=== PATIENT | male | born 1945 | race Caucasian/White ===

== ENCOUNTER → 2017-01-18 | Outpatient (CLI) | payer OTHER ==
[~2017-01-18] MED LIST: ANT25 PO; ASPI-461 PO; DTR/5 PO; DUTA0.5C PO; HYT5 PO; SIMV-151 PO
--- NOTE | 2017-01-18 07:48 | DIAGNOSTIC IMAGING REPORT ---
CHEST CT WITHOUT CONTRAST CT DOSE: 87.59 mGy.cm HISTORY: Dyspnea LOW DOSE TECHNIQUE: Multiaxial CT images of the chest were performed without contrast. COMPARISON: None. FINDINGS: 5 mm hyperdense nodular density left base. Lungs otherwise appear clear. No focal infiltrate. Moderate ectasia thoracic aorta. No significant hilar or mediastinal adenopathy. IMPRESSION: 5 mm slightly hyperdense nodule left base. Follow-up per Fleischner criteria is suggested. Please refer to below summary of Fleischner criteria recommendations for follow-up of incidental CT nodules (Negro Plascencia, Guidelines for management of small pulmonary nodules detected on CT scans: A statement from the Fleischner Society, Radiology 237: [phone].) SOLID NODULES Solitary nodule size: <6 mm * low risk patients: no follow-up needed * high risk patients: optional CT at 12 months Solitary nodule size: 6-8 mm * low risk patients: follow-up at 6-12 months, then consider further follow-up at 18-24 months * high risk patients: initial follow-up CT at 6-12 months and then at 18-24 months if no change Solitary nodule size: >8 mm * either low or high risk patients - consider follow-up CT at 3 months, and/or CT-PET, and/or biopsy Multiple nodules size: <6 mm * low risk patients: no routine follow-up * high risk patients: optional CT at 12 months Multiple nodules size: 6-8 mm * low risk patients: follow-up at 3-6 months, then consider further follow-up at 18-24 months * high risk patients: follow-up at 3-6 months, then at 18-24 months if no change Multiple nodules size: >8 mm * low risk patients: follow-up at 3-6 months, then consider further follow-up at 18-24 months * high risk patients: follow-up at 3-6 months, then at 18-24 months if no change Note: newly detected indeterminate nodule in persons 35 years of age or older. * Low risk patients: minimal or absent history of smoking and/or other known risk factors * high risk patients: history of smoking or of other known risk factors (e.g. first degree relative with lung cancer, or exposure to asbestos, radon, uranium) * if a nodule up to 8 mm is partly solid or is ground glass further follow-up is required after 24 months to exclude possible slow growing adenocarcinoma (MAURICE) SUBSOIL NODULES Solitary pure ground-glass nodule * nodule size <6 mm - no CT follow-up required * nodule size >=6 mm - follow-up CT at 6-12 months, then every 2 years until 5 years Solitary part-solid nodule * nodule size <6 mm - no CT follow-up required * nodule size >=6 mm - follow-up CT at 3-6 months. If unchanged, and solid component remains <6 mm, then annual follow-up for 5 years Multiple subsolid nodules * nodule size <6 mm - follow-up CT at 3-6 months, consider further follow-up at 2 and 4 years if stable * nodule size >=6 mm - follow-up CT at 3-6 months, subsequent management based on the most suspicious nodule(s) . Electronically signed by: Albaro Jacobo M.D. 01/18/2017 7:46 AM Dictated Date/Time: 01/18/2017 7:42 AM
--- NOTE | 2017-01-18 13:18 | DIAGNOSTIC IMAGING REPORT ---
ADDENDUM CT LUNG SCREENING, LOW DOSE CLINICAL HISTORY: SCREENING FOR LUNG CANCER COMPARISON STUDY: No previous studies for comparison. CT DOSE: 87.59 mGy.cm TECHNIQUE: Low-dose helical CT was acquired without intravenous contrast from lung apices to bases and reconstructed at 2.5 mm every 2 mm. CAD was utilized for this study. FINDINGS: 5 mm hyperdense nodular density left base. Lungs otherwise appear clear. No focal infiltrate. Moderate ectasia thoracic aorta. No significant hilar or mediastinal adenopathy. Nodule 1 Category: 2 Nodule 1 Status: Baseline Nodule 1 Description: Solid Nodule 1 Lesion ID: 1 Nodule 1 Slice Number: [id number] Nodule 1 Volume (mm3): 85.4 Nodule 1 Major [place] mm: 7.6 Nodule 1 Minor [place] mm: 5.5 IMPRESSION: 5 mm slightly hyperdense nodule left base. CAD FINDINGS: Overall Lung RADS Category: 2 Lung RADS Management Recommendation: Lung RADS2: Continue annual screening in 12 months. Lung RADS Follow Up Date: January 18, 2018 Electronically signed by: Albaro Jacobo M.D. 01/18/2017 3:21 PM Dictated Date/Time: 01/18/2017 1:11 PM ORIGINAL REPORT CHEST CT WITHOUT CONTRAST CT DOSE: 87.59 mGy.cm HISTORY: Dyspnea LOW DOSE TECHNIQUE: Multiaxial CT images of the chest were performed without contrast. COMPARISON: None. FINDINGS: 5 mm hyperdense nodular density left base. Lungs otherwise appear clear. No focal infiltrate. Moderate ectasia thoracic aorta. No significant hilar or mediastinal adenopathy. IMPRESSION: 5 mm slightly hyperdense nodule left base. Follow-up per Fleischner criteria is suggested. Please refer to below summary of Fleischner criteria recommendations for follow-up of incidental CT nodules (Negro Plascencia, Guidelines for management of small pulmonary nodules detected on CT scans: A statement from the Fleischner Society, Radiology 237: [phone].) SOLID NODULES Solitary nodule size: <6 mm * low risk patients: no follow-up needed * high risk patients: optional CT at 12 months Solitary nodule size: 6-8 mm * low risk patients: follow-up at 6-12 months, then consider further follow-up at 18-24 months * high risk patients: initial follow-up CT at 6-12 months and then at 18-24 months if no change Solitary nodule size: >8 mm * either low or high risk patients - consider follow-up CT at 3 months, and/or CT-PET, and/or biopsy Multiple nodules size: <6 mm * low risk patients: no routine follow-up * high risk patients: optional CT at 12 months Multiple nodules size: 6-8 mm * low risk patients: follow-up at 3-6 months, then consider further follow-up at 18-24 months * high risk patients: follow-up at 3-6 months, then at 18-24 months if no change Multiple nodules size: >8 mm * low risk patients: follow-up at 3-6 months, then consider further follow-up at 18-24 months * high risk patients: follow-up at 3-6 months, then at 18-24 months if no change Note: newly detected indeterminate nodule in persons 35 years of age or older. * Low risk patients: minimal or absent history of smoking and/or other known risk factors * high risk patients: history of smoking or of other known risk factors (e.g. first degree relative with lung cancer, or exposure to asbestos, radon, uranium) * if a nodule up to 8 mm is partly solid or is ground glass further follow-up is required after 24 months to exclude possible slow growing adenocarcinoma (MAURICE) SUBSOIL NODULES Solitary pure ground-glass nodule * nodule size <6 mm - no CT follow-up required * nodule size >=6 mm - follow-up CT at 6-12 months, then every 2 years until 5 years Solitary part-solid nodule * nodule size <6 mm - no CT follow-up required * nodule size >=6 mm - follow-up CT at 3-6 months. If unchanged, and solid component remains <6 mm, then annual follow-up for 5 years Multiple subsolid nodules * nodule size <6 mm - follow-up CT at 3-6 months, consider further follow-up at 2 and 4 years if stable * nodule size >=6 mm - follow-up CT at 3-6 months, subsequent management based on the most suspicious nodule(s) . Electronically signed by: Albaro Jacobo M.D. 01/18/2017 7:46 AM Dictated Date/Time: 01/18/2017 7:42 AM
== END | disposition home or self-care (01) ==
LOC: C.CTS 07:22
PROVIDERS: ATTEND Physician Assistant
DX: Z12.2 Encounter for screening for malignant neoplasm of respiratory organs (principal); F17.210 Nicotine dependence, cigarettes, uncomplicated; R91.8 Other nonspecific abnormal finding of lung field

== ENCOUNTER → 2017-07-02 | Outpatient (CLI) | payer OTHER ==
[~2017-07-02] MED LIST changes: -DTR/5 PO; +OXYB5TAB74 PO
--- NOTE | 2017-07-02 08:44 | DIAGNOSTIC IMAGING REPORT ---
ULTRASOUND OF THE CAROTID ARTERIES CLINICAL HISTORY: LIGHTHEADEDNESS W/STANDING COMPARISON STUDY: None. TECHNIQUE: Real-time, grayscale, and color Doppler sonography of the carotid arteries was performed. Imaging reviewed in the transverse and longitudinal planes. NASCET criteria was utilized for stenosis calcification. FINDINGS: There is mild atherosclerotic plaque present . The peak systolic velocity within the right internal carotid artery is 53 cm/sec. The systolic velocity ratio of right internal to common carotid artery is 1.1. The peak systolic velocity within the left internal carotid artery is 34 cm/sec. The systolic velocity ratio left internal to common carotid artery is 1.1. Antegrade flow is seen in the vertebral arteries. The external carotid arteries are patent. Blood pressure in the right arm measured 161 mm/Hg. Blood pressure in the left arm measured 147 mm/Hg. IMPRESSION: No evidence of hemodynamically significant carotid stenosis. Electronically signed by: Juan Miguel Chance M.D. 07/02/2017 8:43 AM Dictated Date/Time: 07/02/2017 8:42 AM
--- NOTE | 2017-07-07 10:53 | CODING QUERY MEDICAL NECESSITY ---
SUPPORTING DIAGNOSIS NEEDED Mario GILBERT, A supporting diagnosis is required for the test/procedure performed on this patient in order for us to be reimbursed by the patient's insurance. Please provide a supporting diagnosis for the following test/procedure listed below next to the test name along with your signature. *If there is no additional diagnosis for this patient that would support the following test/procedure please document that below next to the test/procedure. Test(s)/Procedure(s) that require a supporting diagnosis: * ([id number]) (CAROTID DOP) DUPLEX NECK ARTER DIAGNOSIS: DATE OF SERVICE: 07/02/17 Provider Signature: Date: Thank you Benjamin Delgado [facility] Information Management Once completed, please kindly fax back to [phone] For questions please call [phone]
== END | disposition home or self-care (01) ==
LOC: C.ULTRBC 07:56
PROVIDERS: ATTEND Physician Assistant
DX: R42 Dizziness and giddiness (principal)

== ENCOUNTER 2017-10-03 08:57 | Emergency (ER) | payer OTHER ==
[~2017-10-03] VITALS: Ht 165.1 cm; Wt 76.0 kg
[~2017-10-03 08:57] MED LIST changes: +DTR/5 PO; -HYT5 PO; -OXYB5TAB74 PO; +TERA5CAP PO
[2017-10-03 09:02] VITALS: Ht 165.1 cm; Wt 76.0 kg
[2017-10-03] MEDS ORDERED: DEXAMETHASONE SOD INJ 4 MG/ML VIAL IV STA (09:21)
--- NOTE | 2017-10-03 09:22 | EMERGENCY ROOM VISIT NOTE ---
History Report prepared by Mary Carmen: Nick Nunez Under the Supervision of: Dr. Harpreet Jiménez D.O. First contact with patient: 09:11 Chief Complaint: SKIN PROBLEM Stated Complaint: ITCHY, HIVES History of Present Illness The patient is a 71 year old male who presents to the Emergency Room with complaints of a persistent allergic reaction that started 3 days ago. He states that he has bumps all over his body, including his back and up his hair line. He notes that the bumps are extremely itchy. The patient says that he has no idea what has caused the bumps, as he has been doing the same activities as always, and denies any new chemical, soap, or detergent use. He also denies any new foods. The patient says that he has taken Benadryl without any relief of his skin problem. The patient denies any abdominal pain, fatigue, easy bleeding , recent cold symptoms, leg swelling, or diarrhea. He states that he takes a daily blood pressure medication. Source of History: patient Onset: 3 days ago Position: other (global - allergic reaction) Quality: other (bumps all over skin - itchy) Timing: other (persistent) Associated Symptoms: No abdominal pain, No diarrhea, No fatigue Note: Denies any easy bleeding, recent cold symptoms, leg swelling. Review of Systems See HPI for pertinent positives & negatives. A total of 10 systems reviewed and were otherwise negative. Past Medical & Surgical Medical Problems: (1) HTN (hypertension) Family History Family history omitted secondary to patient's advanced age. Social History Smoking Status: Current Every Day Smoker Alcohol Use: occasionally Marital Status: Occupation Status: employed Current/Historical Medications Scheduled Aspirin (Aspirin), 1 TAB PO QAM Dutasteride (Avodart), 0.5 MG PO QAM Meclizine HCl (Meclizine HCl), 1 TAB PO BID Oxybutynin Chloride (Ditropan), 10 MG PO BID Prednisone (Prednisone Tab), 40 MG PO DAILY Simvastatin (Simvastatin), 1 TAB PO HS Terazosin HCl (Terazosin HCl), 1 CAP PO HS Allergies Coded Allergies: No Known Allergies (Unverified , 09/25/15) Physical Exam Vital Signs Date Time Temp Pulse Resp B/P (MAP) Pulse Ox O2 Delivery O2 Flow Rate FiO2 10/03/17 09:02 36.6 100 20 116/69 96 Room Air Physical Exam GENERAL: Patient is awake, alert, and in no acute distress. Patient is resting comfortably and showing no signs of anxiety EYES: The conjunctivae are clear. The pupils are round and reactive. EARS, NOSE, MOUTH AND THROAT: The nose is without any evidence of any deformity. Mucous membranes are moist tongue is midline NECK: The neck is nontender and supple. RESPIRATORY: Normal respiratory effort is noted there is no evidence of wheezing rhonchi or rales CARDIOVASCULAR: Regular rate and rhythm noted there no murmurs rubs or gallops normal S1 normal S2 GASTROINTESTINAL: The abdomen is soft. Bowel sounds are present in all quadrants. Abdomen is nontender MUSCULOSKELETAL/EXTREMITIES: There is no evidence of gross deformity full range of motion is noted in the hips and shoulders SKIN: Diffuse urticarial rash noted over body as well as extremities, blanches easily. There is no edema in the lower extremities and no petechiae in the lower extremities. NEUROLOGIC: Patient is awake alert and oriented x3. Medical Decision & Procedures Laboratory Results 10/03/17 09:25 Red Blood Count 4.19, Mean Corpuscular Volume 96.9, Mean Corpuscular Hemoglobin 33.4, Mean Corpuscular Hemoglobin Concent 34.5, Mean Platelet Volume 11.4, Neutrophils (%) (Auto) 82.7, Lymphocytes (%) (Auto) 13.9, Monocytes (%) (Auto) 2.3, Eosinophils (%) (Auto) 0.9, Basophils (%) (Auto) 0.0, Neutrophils # (Auto) 8.75, Lymphocytes # (Auto) 1.47, Monocytes # (Auto) 0.24, Eosinophils # (Auto) 0.10, Basophils # (Auto) 0.00 10/03/17 09:25 Test 10/03/17 09:25 White Blood Count 10.58 K/uL (4.8-10.8) Red Blood Count 4.19 M/uL (4.7-6.1) Hemoglobin 14.0 g/dL (14.0-18.0) Hematocrit 40.6 % (42-52) Mean Corpuscular Volume 96.9 fL (80-100) Mean Corpuscular Hemoglobin 33.4 pg (25-34) Mean Corpuscular Hemoglobin Concent 34.5 g/dl (32-36) Platelet Count 157 K/uL (130-400) Mean Platelet Volume 11.4 fL (7.4-10.4) Neutrophils (%) (Auto) 82.7 % Lymphocytes (%) (Auto) 13.9 % Monocytes (%) (Auto) 2.3 % Eosinophils (%) (Auto) 0.9 % Basophils (%) (Auto) 0.0 % Neutrophils # (Auto) 8.75 K/uL (1.4-6.5) Lymphocytes # (Auto) 1.47 K/uL (1.2-3.4) Monocytes # (Auto) 0.24 K/uL (0.11-0.59) Eosinophils # (Auto) 0.10 K/uL (0-0.5) Basophils # (Auto) 0.00 K/uL (0-0.2) RDW Standard Deviation 51.1 fL (36.4-46.3) RDW Coefficient of Variation 14.3 % (11.5-14.5) Immature Granulocyte % (Auto) 0.2 % Immature Granulocyte # (Auto) 0.02 K/uL (0.00-0.02) Anion Gap 7.0 mmol/L (3-11) Est Creatinine Clear Calc Drug Dose 59.4 ml/min Estimated GFR () 80.0 Estimated GFR (Non- 69.0 BUN/Creatinine Ratio 12.6 (10-20) Calcium Level 8.9 mg/dl (8.5-10.1) Total Bilirubin 1.5 mg/dl (0.2-1) Direct Bilirubin 0.3 mg/dl (0-0.2) Aspartate Amino Transf (AST/SGOT) 20 U/L (15-37) Alanine Aminotransferase (ALT/SGPT) 20 U/L (12-78) Alkaline Phosphatase 47 U/L (45-117) Total Protein 7.2 gm/dl (6.4-8.2) Albumin 3.8 gm/dl (3.4-5.0) Laboratory results per my review. Medications Administered Medications (Trade) Dose Ordered Sig/Catherine Route Start Time Stop Time Status Last Admin Dose Admin Dexamethasone Sodium Phosphate (Decadron Inj) 10 mg NOW STAT IV 10/03/17 09:21 10/03/17 09:22 DC 10/03/17 09:35 10 MG ED Course 0915: The patient was evaluated in room B7. A complete history and physical examination were performed. 09: Ordered Decadron Inj 10 mg IV. 1013: Upon reevaluation, the patient is resting comfortably. I discussed the results and treatment plan with him. He verbalized agreement of the treatment plan. He was discharged home. Medical Decision Differential diagnosis: Etiologies such as contact dermatitis, viral exanthem, urticaria, allergic reaction, Hussein-Francis syndrome, toxic epidermal necrolysis, erythema multiforme, cellulitis, scabies, HSV, varicella, zoster, eczema, staph scalded skin syndrome, fungal infection, as well as others were entertained. Nursing notes reviewed. The patient is a 71-year-old male who presented to the emergency department with progressive urticarial rash. The rash was blanching. He had no definite exposures that he knew of. He had no airway involvement and he did not have any chest pain. The patient was treated with Decadron in the emergency apartment. He took Benadryl prior to arrival. The patient's symptoms improved somewhat. At this time I'm unsure what the patient is having the urticaria from but I encouraged him to continue all medications as prescribed. He was also encouraged to start taking an H2 curtis while he was on the prednisone. I also recommended that he follow-up with his primary care physician this week for reevaluation but return to the emergency department immediately if symptoms change worsen or the need arises. Medication Reconcilliation Current Medication List: was personally reviewed by me Blood Pressure Screening Patient's blood pressure: Normal blood pressure Impression Primary Impression: [place] Scribe Attestation The scribe's documentation has been prepared under my direction and personally reviewed by me in its entirety. I confirm that the note above accurately reflects all work, treatment, procedures, and medical decision making performed by me. Departure Information Dispostion Home / Self-Care Prescriptions Prednisone (Prednisone Tab) 20 Mg Tab 40 MG PO DAILY, #10 TAB Start on 10/04 Prov: Harpreet Jiménez, DO 10/03/17 Referrals No Doctor, Assigned (PCP) Forms HOME CARE DOCUMENTATION FORM, IMPORTANT VISIT INFORMATION, WORK / SCHOOL INSTRUCTIONS Patient Instructions My [facility], [place] Additional Instructions Continue using Benadryl as directed for symptomatically relief. Consider starting an [id number] medicine for stomach acid such as Zantac or Pepcid especially while your taking the prednisone. Start taking the prednisone tomorrow. Call your family to schedule a follow-up appointment. Return to the emergency department if symptoms change worsen or the need arises.
[2017-10-03 09:41] LABS: EOS % 0.9 %; HEMATOCRIT 40.6 % (42-52); IG# 0.02 K/uL (0.00-0.02); LYMPH % 13.9 %; LYMPH ABS # 1.47 K/uL (1.2-3.4); MEAN CELL VOLUME 96.9 fL (80-100); MEAN CORPUSCULAR HEMOGLOBIN 33.4 pg (25-34); MEAN CORPUSCULAR HGB CONC 34.5 g/dl (32-36); MEAN PLATELET VOLUME 11.4 fL (7.4-10.4); MONO % 2.3 %; MONO ABS # 0.24 K/uL (0.11-0.59); NEUT % 82.7 %; NEUT ABS # 8.75 K/uL (1.4-6.5); PLATELET COUNT 157 K/uL (130-400); RED CELL DISTRIBUTION WIDTH CV 14.3 % (11.5-14.5); RED CELL DISTRIBUTION WIDTH SD 51.1 fL (36.4-46.3); WHITE BLOOD COUNT 10.58 K/uL (4.8-10.8)
[2017-10-03 09:59] LABS: ALBUMIN 3.8 gm/dl (3.4-5.0); CALCIUM 8.9 mg/dl (8.5-10.1); CREATININE 1.07 mg/dl (0.60-1.40); POTASSIUM 3.7 mmol/L (3.5-5.1)
[2017-10-03 10:01] LABS: TOTAL PROTEIN 7.2 gm/dl (6.4-8.2)
[2017-10-03] MEDS ORDERED: PRED20TA2 PO (10:11)
[2017-10-03 10:54] VITALS: BP 126/78; PULSE 73; TEMP 36.6; O2SAT 97
== END 2017-10-03 10:54 | disposition home or self-care (01) ==
LOC: C.EDB 08:58
DX: L50.9 Urticaria, unspecified (principal); I10 Essential (primary) hypertension; F17.200 Nicotine dependence, unspecified, uncomplicated; Z79.82 Long term (current) use of aspirin

== ENCOUNTER → 2018-01-19 | Outpatient (CLI) | payer OTHER ==
[~2018-01-19] MED LIST changes: +HYT5 PO; +PRED20TA2 PO; -TERA5CAP PO
--- NOTE | 2018-01-19 07:32 | DIAGNOSTIC IMAGING REPORT ---
ADDENDUM After the report was finalized, I was informed that a low-dose lung screening CT was attempted to be ordered, however a standard chest CT without contrast was subsequently ordered and completed. Following low dose screening lung RADS criteria, these findings would be most compatible with category 2 which suggests continued annual screening with low-dose lung CT. Electronically signed by: Josh Deal M.D. 01/19/2018 3:04 PM Dictated Date/Time: 01/19/2018 3:02 PM ORIGINAL REPORT (CHEST) THORAX WITHOUT CT DOSE: 324.02 mGy.cm CLINICAL HISTORY: 72 years-old Male with F/U LUNG NODULE. Follow-up study in a patient with lung nodule TECHNIQUE: Multiaxial CT images of the chest were performed without contrast. A dose lowering technique was utilized adhering to the principles of ALARA. COMPARISON: Low-dose lung screening study January 18, 2017. FINDINGS: No dominant thyroid nodule. Evaluation for adenopathy is limited without the use of IV contrast. No pathologic adenopathy is identified. Coronary arterial disease. Mild to moderate atherosclerosis of the thoracic aorta without aneurysm identified. Unopacified pulmonary arterial tree is within normal limits. There is no pneumothorax, pleural effusion or focal airspace consolidation. 5 mm solid nodule of the basal left lower lobe seen on image 228 series 301 is unchanged from comparison study 01/18/2017. No additional pulmonary nodules or masses identified. Central airways are patent. Small Bochdalek hernia on the left. Calcifications of the inferior pole left kidney suggests nonobstructing renal calculi measuring up to 3 mm. Punctate nonobstructing calculus of the superior pole right kidney. High attenuating material is noted within the distal esophagus and proximal gastric lumen. Soft tissues are unremarkable. Multilevel facet arthrosis and endplate spurring about the spine. IMPRESSION: 1. No acute intrathoracic abnormality identified. 2. No lobar airspace consolidation or pathologic adenopathy. 3. Unchanged solid 5 mm nodule of the basal left lower lobe. 4. Nonobstructing bilateral nephrolithiasis. 5. Small left-sided Bochdalek hernia. Please refer to below summary of Fleischner criteria recommendations for follow-up of incidental CT nodules (H Thais, Guidelines for management of small pulmonary nodules detected on CT scans: A statement from the Fleischner Society, Radiology 237: [phone].) SOLID NODULES Solitary nodule size: <6 mm * Low risk patients: no follow-up needed * high risk patients: optional CT at 12 months Note: newly detected indeterminate nodule in persons 35 years of age or older. * Low risk patients: minimal or absent history of smoking and/or other known risk factors * high risk patients: history of smoking or of other known risk factors (e.g. first degree relative with lung cancer, or exposure to asbestos, radon, uranium) * if a nodule up to 8 mm is partly solid or is ground glass further follow-up is required after 24 months to exclude possible slow growing adenocarcinoma (MAURICE) The above report was generated using voice recognition software. It may contain grammatical, syntax or spelling errors. Electronically signed by: Josh Deal M.D. 01/19/2018 7:31 AM Dictated Date/Time: 01/19/2018 7:20 AM
== END | disposition home or self-care (01) ==
LOC: C.CTS 06:59
PROVIDERS: ATTEND Physician Assistant
DX: R91.8 Other nonspecific abnormal finding of lung field (principal); N20.0 Calculus of kidney

== ENCOUNTER → 2018-02-10 | Outpatient (CLI) | payer OTHER ==
--- NOTE | 2018-02-10 13:10 | EXERCISE STRESS ECHO ---
*NOTICE TO RECEIVING REPUBLICAN AGENCY This information is strictly Confidential and protected under [place] law. [place] law prohibits you from making any further disclosure of this information unless further disclosure is expressly permitted by the written consent of the person to whom it pertains or is authorized by law. A general authorization for the release of medical or other information is not sufficient for this purpose. Hospital accepts no responsibility if the information is made available to any other person, INCLUDING THE PATIENT. Interpretation Summary * Name: MARIANELA MITCHELL JR Study Date: 02/10/2018 08:25 AM BP: 148/86 mmHg * Patient Location: [facility] HR: 62 * : 1945 (M/d/yyyy) Gender: Male Height: 65 in * Age: 72 yrs Ethnicity: CA Weight: 165 lb * Ordering Physician: Renee Martin * Referring Physician: Renee Martin PA-C * Performed By: Emelina Singletary RCS * * Reason For Study: AKBAR / CORONARY ATHROSCLEROSIS * BSA: 1.8 m2 * -- Conclusions -- * Left ventricular systolic function is normal. * Diastolic dysfunction, Grade II (pseudonormalization pattern). * Aortic valve sclerosis mild, without significant aortic valvular stenosis. * Right ventricular systolic pressure is normal. * Normal exercise echocardiogram without evidence of inducible ischemia Procedure Details * ECHOEX, CPT #[id number] * ECHO COLOR FLOW, CPT #[id number] * ECHO DOPPLER, CPT #[id number] Left Ventricular Findings with Stress * Normal exercise echocardiogram without evidence of inducible ischemia Left Ventricle * The left ventricle is normal in size. * There is normal left ventricular wall thickness. * Left ventricular systolic function is normal. * Ejection Fraction = 55-60%. * Diastolic dysfunction, Grade II (pseudonormalization pattern). * The left ventricular wall motion is normal at rest. Right Ventricle * The right ventricle is normal size. Atria * The left atrial size is normal. * Right atrial size is normal. Mitral Valve * The mitral valve is grossly normal. * There is no mitral regurgitation noted. Tricuspid Valve * The tricuspid valve is not well visualized, but is grossly normal. * There is trace tricuspid regurgitation. * Right ventricular systolic pressure is normal. Aortic Valve * Aortic valve sclerosis mild, without significant aortic valvular stenosis. * No hemodynamically significant valvular aortic stenosis. * There is no significant aortic regurgitation. Pulmonic Valve * The pulmonic valve is not well visualized. Great Vessels * The aortic root is normal size. Pericardium * There is no pericardial effusion. Stress Parameters * Normal baseline electrocardiogram. * The stress portion of this study was personally supervised by the undersigned interpreting physician. * Rest heart rate was '62' BPM. * Rest blood pressure was '148/86' * Maximum heart rate achieved was 129 bpm. * Maximum heart rate was 87 % of maximum age-predicted heart rate. * Maximum blood pressure was '179/78' * Total exercise time was '08:00' * Maximum exercise MET level achieved was '10.10' METS * Maximum treadmill speed was '3.40' miles per hour. * Maximum treadmill elevation was '14.00'% grade. Left Ventricular Findings with Stress * The baseline EKG was normal There were no significant ST or T-wave changes during exercise or recovery Baseline echocardiogram was normal There was normal augmentation of all segments without inducible wall motion abnormalities at peak exertion Normal heart rate and blood pressure response to exercise No symptoms reported Short treadmill score: 8 (low risk) Normal heart rate recovery MMode 2D Measurements and Calculations IVSd 1.2 cm IVSs 1.6 cm LVIDd 3.8 cm LVIDs 2.6 cm LVPWd 0.78 cm LVPWs 0.94 cm IVS/LVPW 1.5 FS 32.4 % EDV(Teich) 63.5 ml ESV(Teich) 24.5 ml EF(Teich) 61.4 % EDV(cubed) 56.6 ml ESV(cubed) 17.5 ml EF(cubed) 69.1 % % IVS thick 36.1 % % LVPW thick 20.1 % LV mass(C)d 118.5 grams LV mass(C)dI 65.0 grams/m\S\2 LV mass(C)s 101.8 grams LV mass(C)sI 55.9 grams/m\S\2 SV(Teich) 39.0 ml SI(Teich) 21.4 ml/m\S\2 SV(cubed) 39.1 ml SI(cubed) 21.4 ml/m\S\2 Ao root diam 2.7 cm Ao root area 5.7 cm\S\2 LA dimension 3.1 cm LA/Ao 1.1 LVOT diam 2.0 cm LVOT area 3.3 cm\S\2 LVAd ap4 27.7 cm\S\2 LVLd ap4 7.7 cm EDV(MOD-sp4) 81.4 ml EDV(sp4-el) 84.7 ml LVAs ap4 19.8 cm\S\2 LVLs ap4 7.0 cm ESV(MOD-sp4) 44.8 ml ESV(sp4-el) 47.1 ml EF(MOD-sp4) 45.0 % EF(sp4-el) 44.4 % LVAd ap2 36.7 cm\S\2 LVLd ap2 9.2 cm EDV(MOD-sp2) 120.4 ml EDV(sp2-el) 124.2 ml LVAs ap2 23.8 cm\S\2 LVLs ap2 7.4 cm ESV(MOD-sp2) 62.6 ml ESV(sp2-el) 64.8 ml EF(MOD-sp2) 48.0 % EF(sp2-el) 47.9 % LVLd %diff 16.8 % EDV(MOD-bp) 108.1 ml LVLs %diff 4.9 % ESV(MOD-bp) 54.1 ml EF(MOD-bp) 50.0 % SV(MOD-sp4) 36.6 ml SI(MOD-sp4) 20.1 ml/m\S\2 SV(MOD-sp2) 57.8 ml SI(MOD-sp2) 31.7 ml/m\S\2 SV(MOD-bp) 54.0 ml SI(MOD-bp) 29.6 ml/m\S\2 SV(sp4-el) 37.6 ml SI(sp4-el) 20.6 ml/m\S\2 SV(sp2-el) 59.4 ml SI(sp2-el) 32.6 ml/m\S\2 Doppler Measurements and Calculations MV E max clyde 73.3 cm/sec MV A max clyde 65.8 cm/sec MV E/A 1.1 MV P1/2t max clyde 87.1 cm/sec MV P1/2t 76.9 msec MVA(P1/2t) 2.9 cm\S\2 MV dec slope 332.1 cm/sec\S\2 MV dec time 0.26 sec Ao V2 max 120.8 cm/sec Ao max PG 5.8 mmHg Ao max PG (full) 1.3 mmHg JORGE(V,A) 2.9 cm\S\2 JORGE(V,D) 2.9 cm\S\2 LV V1 max PG 4.5 mmHg LV V1 max 106.2 cm/sec PA V2 max 103.5 cm/sec PA max PG 4.3 mmHg TR max clyde 233.8 cm/sec
== END | disposition home or self-care (01) ==
LOC: C.CPL 08:14
PROVIDERS: ATTEND Physician Assistant
DX: R06.09 Other forms of dyspnea (principal); I25.84 Coronary atherosclerosis due to calcified coronary lesion

== ENCOUNTER 2022-05-14 21:06 | Inpatient (IN) ==
[2022-05-14 21:39] LABS: Basophils # (auto) 0.06 K/uL (0-0.2); Basophils % (auto) 0.7 %; Eosinophils # (auto) 0.14 K/uL (0-0.50); Eosinophils % (auto) 1.6 %; Hematocrit (blood only) 36.1 % (40.1-51.0); Hemoglobin 12.4 g/dl (14.0-18.0); Immature Granulocytes # (auto) 0.01 K/uL (0.00-0.02); Immature Granulocytes % (auto) 0.1 %; Lymphocytes # (auto) 1.53 K/uL (1.2-3.4); Lymphocytes % (auto) 17.1 %; Mean Corpuscular Hemoglobin 31.2 pg (25.0-34.0); Mean Corpuscular Hgb Conc 34.3 g/dL (32.0-36.0); Mean Corpuscular Volume 90.9 fL (80.0-100.0); Mean Platelet Volume 10.8 fL (9.4-12.4); Monocytes # (auto) 0.75 K/uL (0.24-0.82); Monocytes % (auto) 8.4 %; Neutrophils # (auto) 6.44 K/uL (1.4-6.5); Neutrophils % (auto) 72.1 %; Platelet Count 198 K/uL (130-400); RDW Coefficient of Variation 14.8 % (11.5-14.5); RDW Standard Deviation 49.6 fL (36.4-46.3); Red Blood Count 3.97 M/uL (4.63-6.08); White Blood Count 8.93 K/ul (4.8-10.8)
[2022-05-14 21:46] LABS: Appearance Urine Clear (Clear); Bacteria Urine Automated Negative (Negative); Bilirubin Urine Negative (Negative); Blood Urine 2+ (Negative); Color Urine Yellow; Glucose Urine UA Negative (Negative); Ketones Urine Negative (Negative); Leukocyte Esterase Urine Negative (Negative); Nitrite Urine Negative (Negative); Protein Urine Trace (Negative); Specific Gravity Urine 1.016 (1.000-1.030); Urobilinogen Urine Negative (Negative)
[2022-05-14 22:00] LABS: Alanine Aminotransferase 19 U/L (7-52); Albumin Globulin Ratio 1.7 (0.9-2); Albumin Level 4.4 gm/dl (3.4-5.0); Alkaline Phosphatase 53 U/L (34-104); Anion Gap 10 (3-11); Aspartate Aminotransferase 29 U/L (13-39); BUN Creatinine Ratio 14.7 (10-20); Bilirubin,Total 0.8 mg/dl (0.2-1.0); Blood Urea Nitrogen 19 mg/dl (6-23); Calcium 9.9 mg/dl (8.5-10.1); Carbon Dioxide 23 mmol/L (21-32); Chloride 105 mmol/L (98-107); Est GFR (African American) 61.6 ml/min; Est GFR (Non-African American) 53.1 ml/min; Globulin 2.6 gm/dl (2.5-4.0); Glucose 100 mg/dl (70-99(Fasting)); Lipase 20 U/L (11-82); Potassium 3.6 mmol/L (3.5-5.1); Sodium 138 mmol/L (136-145)
[2022-05-14] MEDS ORDERED: ONDANSETRON INJ 2 MG/ML 2 ML VIAL IV STA (22:20)
[2022-05-14] MEDS ORDERED: MoRPHine SULFATE 4 MG/ML 1 ML CARP\\VIAL IV STA (22:20)
--- NOTE | 2022-05-14 22:24 | Emergency Department Note ---
History of Present Illness General Chief complaint: Abdominal Pain Stated complaint: SEVERE ABDOMINAL PAIN, FEET GOING NUMB Time Seen by Provider: 05/14/22 22:15 History of Present Illness Maximum Pain Intensity: 10 This 76-year-old presents to the ER complaining of left flank left lower abdominal pain that started today with no history of kidney stones Location: Left lower abdomen and flank Quality: Painful Severity: Moderate Duration: Today Timing: Today Context: Patient was concerned and came in Modifying factors: better with rest; worse with activity Patient denies chest pain, dyspnea, vomiting, diarrhea, urinary symptoms, penile pain, testicular pain. No prior abdominal surgeries. No prior kidney stones. Home Medications Medication Instructions Recorded Confirmed Type dutasteride 0.5 mg capsule 0.5 mg PO QAM 07/20/19 05/14/22 History lisinopril 30 mg tablet 30 mg PO QAM 07/20/19 05/14/22 History meclizine 25 mg tablet 25 mg PO DIRECTED PRN Dizziness 07/20/19 05/14/22 History naproxen sodium 220 mg tablet 220 mg PO BID 07/20/19 05/14/22 History (Aleve) omeprazole 40 mg capsule,delayed 40 mg PO QAM 07/20/19 05/14/22 History release oxybutynin chloride 5 mg tablet 5 mg PO BID 07/20/19 05/14/22 History simvastatin 40 mg tablet 40 mg PO HS 07/20/19 05/14/22 History terazosin 5 mg capsule 5 mg PO HS 07/20/19 05/14/22 History aspirin 81 mg tablet,delayed 81 mg PO DAILY 05/14/22 05/14/22 History release metoprolol succinate 25 mg 25 mg PO QAM 05/14/22 05/14/22 History tablet,extended release 24 hr Allergies Allergy/AdvReac Type Severity Reaction Status Date / Time No Known Allergies Allergy Verified 05/14/22 22:51 Past Med/Surg History Medical History BPH (benign prostatic hyperplasia) Cardiac murmur doesnt follow with anyone DX As CHILD Chronic back pain neck- cant turn side to side very well. up and down is ok Diverticular disease has had in past GERD (gastroesophageal reflux disease) Hearing deficit Hyperlipidemia Hypertension Surgical History History of colonoscopy History of deviated nasal septum with repair History of ingrown nail LEFT FOOT WITH REPAIR Hx of hernia repair Social History Smoking Status: Current every day smoker Cigarettes Per Day: 15; Second Hand Exposure: No; Hx Alcohol Use: Yes Alcohol type: beer, wine and hard liquor Hx Substance Use: No Preferred Language: Latvian Communication Ability: Effective Service Coordinator Elderly Facility Required: No Beliefs That Will Affect Care: None Current Living Situation: Spouse Feels Safe at Home: Yes Assistive Devices: Hearing Aid - Bilateral Review of Systems A total of 10 systems reviewed and were otherwise negative Physical Exam Vital Signs Vital Signs - 24 hr 05/14/22 21:09 05/14/22 22:49 Temperature 36.8 C Temperature Source Temporal Artery Scan Pulse Rate 66 Pulse Rate [Finger] 63 Respiratory Rate 18 18 Respiratory Effort / Characteristics Non-Labored Spontaneous Respiratory Depth Normal Respiratory Pattern Regular Blood Pressure 163/83 H Blood Pressure [Right Arm] 118/79 Blood Pressure Mean 109 Blood Pressure Mean [Right Arm] 92 Blood Pressure Position Sitting Pulse Oximetry 100 98 Oxygen Delivery Method Room Air Room Air Sepsis Recent Fever Within 48 Hours No Sepsis New/Unexplained Change in Mental Status No Sepsis Action Taken by Nursing No Action Required VITALS: Vitals are noted on the nurse's note and reviewed by myself. Vital signs stable. GENERAL: Pleasant gentleman hard of hearing, in no acute distress, nondiaphoretic, well-developed well-nourished. SKIN: The skin was without rashes, erythema, edema, or bruising. There is no tenting of the skin. Capillary reflex less than 2 seconds. HEAD: Normocephalic atraumatic. EARS: External auditory canals clear, EYES: Pupils equal round and reactive to light and accommodation. Conjunctivae without injection, sclerae without icterus. Extraocular movements intact. NOSE: Patent, turbinates without inflammation or discharge. MOUTH: Mucous membranes moist. Pharynx without erythema or exudate. Uvula midline. Airway patent. Tongue does not deviate. NECK: Supple without nuchal rigidity. No lymphadenopathy. No thyromegaly. Cervical spine is nontender. No JVD. HEART: Regular rate and rhythm LUNGS: Clear to auscultation bilaterally without wheezes, rales or rhonchi. No retractions or accessory muscle use. ABDOMEN: Positive bowel sounds x 4. Normal tympanic percussion. Soft, tender left lower quadrant, without masses or organomegaly. Aguirre sign negative. No guarding or rebound tenderness. No CVA tenderness MUSCULOSKELETAL: No muscle atrophy, erythema, or edema noted. NEURO: Patient was alert and oriented to person place and time. Normal sensation to light and sharp touch. No focal neurological deficits. Course Administered Medications Discontinued Medications Ioversol (Optiray 300 100ml) 83 ml IV ONCE ONE Stop: 05/14/22 23:40 Last Admin: 05/14/22 23:41 Dose: 83 ml Documented By: RONEL Morphine Sulfate (Morphine Sulfate 4 Mg/Ml 1 Ml Carp\Vial) 4 mg IV NOW STA Stop: 05/14/22 22:21 Last Admin: 05/14/22 22:48 Dose: 4 mg Documented By: MEG Ondansetron HCl (Ondansetron Inj 2 Mg/Ml 2 Ml Vial) 4 mg IV NOW STA Stop: 05/14/22 22:21 Last Admin: 05/14/22 22:48 Dose: 4 mg Documented By: MEG Medical Decision Making Medical Records Attestation: I reviewed the patient's medical records. Home Medications Current Medication List: was personally reviewed by me Laboratory Data Attestation: I reviewed the patient's lab results. Result diagrams: 05/14/22 21:20 05/14/22 21:20 Lab Results 05/14/22 05/14/22 05/14/22 Range/Units 21:20 21:20 21:20 WBC 8.93 (4.8-10.8) K/ul RBC 3.97 L (4.63-6.08) M/uL Hgb 12.4 L (14.0-18.0) g/dl Hct 36.1 L (40.1-51.0) % MCV 90.9 (80.0-100.0) fL MCH 31.2 (25.0-34.0) pg MCHC 34.3 (32.0-36.0) g/dL RDW Std Deviation 49.6 H (36.4-46.3) fL RDW Coeff of Vic 14.8 H (11.5-14.5) % Plt Count 198 (130-400) K/uL MPV 10.8 (9.4-12.4) fL Immature Gran % (Auto) 0.1 % Neut % (Auto) 72.1 % Lymph % (Auto) 17.1 % [place] % (Auto) 8.4 % Eos % (Auto) 1.6 % Baso % (Auto) 0.7 % Neut # (Auto) 6.44 (1.4-6.5) K/uL Lymph # (Auto) 1.53 (1.2-3.4) K/uL [place] # (Auto) 0.75 (0.24-0.82) K/uL Eos # (Auto) 0.14 (0-0.50) K/uL Baso # (Auto) 0.06 (0-0.2) K/uL Immature Gran # (Auto) 0.01 (0.00-0.02) K/uL Sodium 138 (136-145) mmol/L Potassium 3.6 (3.5-5.1) mmol/L Chloride 105 (98-107) mmol/L Carbon Dioxide 23 (21-32) mmol/L Anion Gap 10 (3-11) BUN 19 (6-23) mg/dl Creatinine 1.29 (0.6-1.4) mg/dl Est Cr Clr Drug Dosing Not Reportable Est GFR ( Amer) 61.6 ml/min Est GFR (Non-Af Amer) 53.1 ml/min BUN/Creatinine Ratio 14.7 (10-20) Glucose 100 H (70-99(Fasting)) mg/dl Calcium 9.9 (8.5-10.1) mg/dl Total Bilirubin 0.8 (0.2-1.0) mg/dl AST 29 (13-39) U/L ALT 19 (7-52) U/L Alkaline Phosphatase 53 (34-104) U/L Total Protein 7.0 (6.0-8.3) gm/dl Albumin 4.4 (3.4-5.0) gm/dl Globulin 2.6 (2.5-4.0) gm/dl Albumin/Globulin Ratio 1.7 (0.9-2) Lipase 20 (11-82) U/L Urine Color Yellow Urine Appearance Clear (Clear) Urine pH 5.0 (4.5-7.5) Ur Specific [place] 1.016 (1.000-1.030) Urine Protein Trace H (Negative) Urine Glucose (UA) Negative (Negative) Urine Ketones Negative (Negative) Urine Blood 2+ H (Negative) Urine Nitrite Negative (Negative) Urine Bilirubin Negative (Negative) Urine Urobilinogen Negative (Negative) Ur Leukocyte Esterase Negative (Negative) Urine WBC (Auto) 5-10 H (0-5) /hpf Urine RBC (Auto) 10-30 H (0-4) /hpf U Hyaline Cast (Auto) 1-5 (0-5) /lpf U Epithel Cells (Auto) 5-10 H (0-5) /lpf Urine Bacteria (Auto) Negative (Negative) Imaging Data Attestation: I personally reviewed and interpreted this imaging study as follows: MDM Narrative Prior records/ancillary studies reviewed. Triage Nursing notes reviewed. Additional history obtained from nursing. The patient's history was concerning for abdominal pain. Differential diagnosis: Etiologies such as appendicitis, diverticulitis, PUD, biliary pathology, UTI, pancreatitis, obstruction, mesenteric ischemia, aortic pathology, infections, inflammatory bowel disease, renal colic, as well as others were entertained. Physical examination findings: As above. ER treatment provided: An order was placed for continuous cardiac monitoring. The monitor shows a rate of 60-100 with a sinus rhythm. Morphine and Zofran, Tylenol On reassessment the patient felt better. Diagnostics interpreted by me: The labs revealed no worrisome leukocytosis, negative urine for infx Imaging studies: Preliminary Findings Only See Final Report For Complete Findings CT ABDOMEN & PELVIS With Contrast: 8 7 x 4 x 5 mm left ureterovesical junction calculus results in minimal hydronephrosis. The remaining solid organs are within normal limits. No bowel obstruction. Normal appendix. Diverticulosis. No fracture. Radiologist: Erika Ramirez MD Consultation: A consultation was placed with the hospitalist. The case was discussed and diagnostics were reviewed. The patient was evaluated in the ER for further treatment. Exam and history seem consistent with renal colic. Patient still moderate amount of pain. Medicine is consulted. He will be evaluated for admission. By the evaluation outlined above emergent etiologies such as appendicitis, diverticulitis, PUD, biliary pathology, UTI, pancreatitis, obstruction, mesenteric ischemia, aortic pathology, infections, inflammatory bowel disease, as well as others were deemed relatively unlikely. The pt informed about the findings as listed above. All questions were answered and pleased with the treatment. The chart was completed utilizing [employer] Speech voice recognition software. Grammatical errors, random word insertions, pronoun errors, and incomplete sentences are an occassional consequence of this system due to software limitations, ambient noise, and hardware issues. Any formal questions or concerns about the content, text, or information contained within the body of this dictation should be directly addressed to the physician material assistant for clarification. Impression & Plan Renal colic on left side, Ureterolithiasis Discharge Plan Visit Data Chief Complaint: Abdominal Pain Stated Complaint: SEVERE ABDOMINAL PAIN, FEET GOING NUMB ED Provider: Sina Luna ED Midlevel Provider: Glenny Blanco Discharge Problem: Renal colic on left side, Ureterolithiasis Patient Disposition: Admitted As Inpatient Condition: Fair Forms Stand Alone Forms: [facility] Prescriptions Prescriptions: No Action terazosin 5 mg Capsule 5 mg PO HS omeprazole 40 mg Capsule,Delayed Release(Dr/Ec) 40 mg PO QAM simvastatin 40 mg Tablet 40 mg PO HS meclizine 25 mg Tablet 25 mg PO DIRECTED PRN (Reason: Dizziness) naproxen sodium [Aleve] 220 mg Tablet 220 mg PO BID lisinopril 30 mg Tablet 30 mg PO QAM oxybutynin chloride 5 mg Tablet 5 mg PO BID dutasteride 0.5 mg Capsule 0.5 mg PO QAM aspirin 81 mg Tablet,Delayed Release (Dr/Ec) 81 mg PO DAILY metoprolol succinate 25 mg tablet extended release 24 hr 25 mg PO QAM Referrals Referrals: Lianne Pedersen DO [Primary Care Provider] -
[2022-05-14] MEDS ORDERED: OPTIRAY 300 100mL IV ONE (23:39)
[2022-05-15] MEDS ORDERED: ACETAMINOPHEN 1,000 MG/100 ML VIAL IV STA (01:37)
[2022-05-15] MEDS ORDERED: TAMSULOSIN HCL 0.4 MG CAP PO ONE (01:50)
--- NOTE | 2022-05-15 01:50 | History & Physical Report ---
Date of Service May 15, 2022 Assessment & Plan (1) Renal colic on left side: Plan: Obstructive uropathy No sepsis for now hx CVA on outpatient MRI hypertension, stable hyperlipidemia on statin Rx New onset anemia, FOBT done at the ER was negative Possible alcohol abuse ongoing tobacco abuse GMF Analgesia Flomax trial Strain urine Urology consult Re: Obstructive uropathy/renal colic N.p.o. until patient seen by urology in anticipation of procedural intervention Anemia work-up, transfuse PRBC if hemoglobin less than 8 and or for symptomatic anemia DT precautions, initiate AWSS if with signs of alcohol withdrawal Nicotine patch as needed DVT prophylaxis per Lovenox subcu Full code Text document was generated using [employer] voice recognition software. It may contain grammatical or spelling errors. Kindly contact undersigned for clarification of any documentation item in question. History of Present Illness Chief Complaint: Left abdominal pain Primary Care Provider: Lianne Pedersen, DO History obtained from patient and records. Medical history significant for CVA, hypertension, hyperlipidemia, PSVT, GERD, BPH, ongoing tobacco abuse, possible alcohol abuse. Yesterday, patient noted achy left flank left abdominal pain without nausea, emesis symptoms. No hematuria, no fever, no chills. No black/bloody stools. No prior episodes. Patient consulted ER for evaluation. Medical History as above Surgical History : Cataract surgeries, hernia repair Family History : Kidney stones, dementia, stroke Personal/Social history : Cigar use, daily alcohol intake which can be heavy from time to time, Demeure Allergies Allergy/AdvReac Type Severity Reaction Status Date / Time No Known Allergies Allergy Verified 05/14/22 22:51 Home Medications Medication Instructions Recorded Confirmed Type dutasteride 0.5 mg capsule 0.5 mg PO QAM 07/20/19 05/14/22 History lisinopril 30 mg tablet 30 mg PO QAM 07/20/19 05/14/22 History meclizine 25 mg tablet 25 mg PO DIRECTED PRN Dizziness 07/20/19 05/14/22 History naproxen sodium 220 mg tablet 220 mg PO BID 07/20/19 05/14/22 History (Aleve) omeprazole 40 mg capsule,delayed 40 mg PO QAM 07/20/19 05/14/22 History release oxybutynin chloride 5 mg tablet 5 mg PO BID 07/20/19 05/14/22 History simvastatin 40 mg tablet 40 mg PO HS 07/20/19 05/14/22 History terazosin 5 mg capsule 5 mg PO HS 07/20/19 05/14/22 History aspirin 81 mg tablet,delayed 81 mg PO DAILY 05/14/22 05/14/22 History release metoprolol succinate 25 mg 25 mg PO QAM 05/14/22 05/14/22 History tablet,extended release 24 hr Past Med/Surg History Medical History BPH (benign prostatic hyperplasia) Cardiac murmur doesnt follow with anyone DX As CHILD Chronic back pain neck- cant turn side to side very well. up and down is ok Diverticular disease has had in past GERD (gastroesophageal reflux disease) Hearing deficit Hyperlipidemia Hypertension Surgical History History of colonoscopy History of deviated nasal septum with repair History of ingrown nail LEFT FOOT WITH REPAIR Hx of hernia repair Social History Smoking Status: Current some day smoker Cigarettes Per Day: 15; Second Hand Exposure: Yes; Do You Dip or Chew Tobacco: No; Tobacco Cessation Education Requested by Patient: No Hx Alcohol Use: Yes Alcohol type: beer and hard liquor Hx Substance Use: Yes Last Used Substance: Hours (ago) Last Used Substance Other:: DAILY USE Preferred Language: Belarusian Communication Ability: Effective [place] Required: No Beliefs That Will Affect Care: None Current Living Situation: Alone Other Information That Helps Us Care for You: No Feels Safe at Home: Yes Safety Concerns: Feels Safe At This Time Assistive Devices: None Review of Systems Review of Systems: As per HPI, all other systems reviewed and negative Physical Exam Physical Exam: GENERAL: Comfortable, slightly hard of hearing, pleasant, dysarthric (? Chronic), no respiratory distress SKIN: Normal color, warm HEENT: [place] palpebral conjunctivae, no ptosis, moist buccal mucosa NECK : Supple, no tenderness CHEST : CTA, no tenderness HEART : Bradycardic, no obvious murmurs ABDOMEN: Some distention, left-sided abdominal tenderness RECTAL : Intact sphincter, brown stool (FOBT negative) EXTREMITIES : No LE swelling/tenderness, no other conspicuous deformities noted NEUROLOGIC : Coherent, lip asymmetry, mild dysarthria, gait and stance not assessed Results & Data Results & Data ([place]) Vital Signs (Past 12 Hours) Vital Signs Temp Pulse Pulse Resp BP BP Pulse Ox 05/15/22 01:00 55 L 16 119/78 97 05/14/22 22:49 63 18 118/79 98 05/14/22 21:09 36.8 C 66 18 163/83 H 100 O2 Del Method 05/15/22 01:00 Room Air 05/14/22 22:49 Room Air 05/14/22 21:09 Room Air Laboratory Results Laboratory Results WBC 8.93 K/ul (4.8-10.8) 05/14/22 21:20 RBC 3.97 M/uL (4.63-6.08) L 05/14/22 21:20 Hgb 12.4 g/dl (14.0-18.0) L 05/14/22 21:20 Hct 36.1 % (40.1-51.0) L 05/14/22 21:20 MCV 90.9 fL (80.0-100.0) 05/14/22 21:20 MCH 31.2 pg (25.0-34.0) 05/14/22 21:20 MCHC 34.3 g/dL (32.0-36.0) 05/14/22 21:20 RDW Std Deviation 49.6 fL (36.4-46.3) H 05/14/22 21:20 RDW Coeff of Vic 14.8 % (11.5-14.5) H 05/14/22 21:20 Plt Count 198 K/uL (130-400) 05/14/22 21:20 MPV 10.8 fL (9.4-12.4) 05/14/22 21:20 Immature Gran % (Auto) 0.1 % 05/14/22 21:20 Neut % (Auto) 72.1 % 05/14/22 21:20 Lymph % (Auto) 17.1 % 05/14/22 21:20 [place] % (Auto) 8.4 % 05/14/22 21:20 Eos % (Auto) 1.6 % 05/14/22 21:20 Baso % (Auto) 0.7 % 05/14/22 21:20 Neut # (Auto) 6.44 K/uL (1.4-6.5) 05/14/22 21:20 Lymph # (Auto) 1.53 K/uL (1.2-3.4) 05/14/22 21:20 Darke # (Auto) 0.75 K/uL (0.24-0.82) 05/14/22 21:20 Eos # (Auto) 0.14 K/uL (0-0.50) 05/14/22 21:20 Baso # (Auto) 0.06 K/uL (0-0.2) 05/14/22 21:20 Immature Gran # (Auto) 0.01 K/uL (0.00-0.02) 05/14/22 21:20 Sodium 138 mmol/L (136-145) 05/14/22 21:20 Potassium 3.6 mmol/L (3.5-5.1) 05/14/22 21:20 Chloride 105 mmol/L (98-107) 05/14/22 21:20 Carbon Dioxide 23 mmol/L (21-32) 05/14/22 21:20 Anion Gap 10 (3-11) 05/14/22 21:20 BUN 19 mg/dl (6-23) 05/14/22 21:20 Creatinine 1.29 mg/dl (0.6-1.4) 05/14/22 21:20 Est Cr Clr Drug Dosing Not Reportable 05/14/22 21:20 Est GFR ( Amer) 61.6 ml/min 05/14/22 21:20 Est GFR (Non-Af Amer) 53.1 ml/min 05/14/22 21:20 BUN/Creatinine Ratio 14.7 (10-20) 05/14/22 21:20 Glucose 100 mg/dl (70-99(Fasting)) H 05/14/22 21:20 Calcium 9.9 mg/dl (8.5-10.1) 05/14/22 21:20 Total Bilirubin 0.8 mg/dl (0.2-1.0) 05/14/22 21:20 AST 29 U/L (13-39) 05/14/22 21:20 ALT 19 U/L (7-52) 05/14/22 21:20 Alkaline Phosphatase 53 U/L (34-104) 05/14/22 21:20 Total Protein 7.0 gm/dl (6.0-8.3) 05/14/22 21:20 Albumin 4.4 gm/dl (3.4-5.0) 05/14/22 21:20 Globulin 2.6 gm/dl (2.5-4.0) 05/14/22 21:20 Albumin/Globulin Ratio 1.7 (0.9-2) 05/14/22 21:20 Lipase 20 U/L (11-82) 05/14/22 21:20 Urine Color Yellow 05/14/22 21:20 Urine Appearance Clear (Clear) 05/14/22 21:20 Urine pH 5.0 (4.5-7.5) 05/14/22 21:20 Ur Specific [place] 1.016 (1.000-1.030) 05/14/22 21:20 Urine Protein Trace (Negative) H 05/14/22 21:20 Urine Glucose (UA) Negative (Negative) 05/14/22 21:20 Urine Ketones Negative (Negative) 05/14/22 21:20 Urine Blood 2+ (Negative) H 05/14/22 21:20 Urine Nitrite Negative (Negative) 05/14/22 21:20 Urine Bilirubin Negative (Negative) 05/14/22 21:20 Urine Urobilinogen Negative (Negative) 05/14/22 21:20 Ur Leukocyte Esterase Negative (Negative) 05/14/22 21:20 Urine WBC (Auto) 5-10 /hpf (0-5) H 05/14/22 21:20 Urine RBC (Auto) 10-30 /hpf (0-4) H 05/14/22 21:20 U Hyaline Cast (Auto) 1-5 /lpf (0-5) 05/14/22 21:20 U Epithel Cells (Auto) 5-10 /lpf (0-5) H 05/14/22 21:20 Urine Bacteria (Auto) Negative (Negative) 05/14/22 21:[address] abdomen pelvis initial read: 8 7 x 4 x 5 mmleft ureterovesical junction calculus results in minimal hydronephrosis. The remaining solid organs are within normal limits. No bowel obstruction. Normal appendix. Diverticulosis. No fracture
[2022-05-15] MEDS ORDERED: MULTI-VITAMIN INFUSION 10 ML, THIAMINE HCL 100 MG, FOLIC ACID 1 MG in SODIUM CHLORIDE 0... IV ONE (02:14)
[2022-05-15] MEDS ORDERED: Patient's HEIGHT &/or WEIGHT Needed SCH (04:00)
[2022-05-15 04:07] LABS: Basophils # (auto) 0.06 K/uL (0-0.2); Basophils % (auto) 0.7 %; Eosinophils # (auto) 0.08 K/uL (0-0.50); Eosinophils % (auto) 0.9 %; Hematocrit (blood only) 34.2 % (40.1-51.0); Hemoglobin 11.3 g/dl (14.0-18.0); Immature Granulocytes # (auto) 0.02 K/uL (0.00-0.02); Immature Granulocytes % (auto) 0.2 %; Lymphocytes # (auto) 1.24 K/uL (1.2-3.4); Lymphocytes % (auto) 14.3 %; Mean Platelet Volume 11.3 fL (9.4-12.4); Monocytes # (auto) 0.65 K/uL (0.24-0.82); Monocytes % (auto) 7.5 %; Neutrophils # (auto) 6.65 K/uL (1.4-6.5); Neutrophils % (auto) 76.4 %; Platelet Count 184 K/uL (130-400); RDW Coefficient of Variation 14.7 % (11.5-14.5); RDW Standard Deviation 51.3 fL (36.4-46.3); Red Blood Count 3.64 M/uL (4.63-6.08); Reticulocyte % 0.7 % (0.5-2.0); Reticulocytes # 0.03 10^6/uL (0.02-0.10)
[2022-05-15 04:27] LABS: Anion Gap 5 (3-11); BUN Creatinine Ratio 16.7 (10-20); Blood Urea Nitrogen 19 mg/dl (6-23); Calcium 8.6 mg/dl (8.5-10.1); Carbon Dioxide 25 mmol/L (21-32); Chloride 107 mmol/L (98-107); Est GFR (African American) 71.5 ml/min; Est GFR (Non-African American) 61.7 ml/min; Glucose 104 mg/dl (70-99(Fasting)); Iron 42 mcg/dl (35-175); Potassium 4.1 mmol/L (3.5-5.1); Sodium 137 mmol/L (136-145); Transferrin 246 mg/dl (200-360)
[2022-05-15] MEDS ORDERED: PROMETHAZINE HCL 12.5 MG in SODIUM CHLORIDE 0.9% 50 ML IV PRN (04:31)
[2022-05-15] MEDS ORDERED: oxyCODONE HCL IR 5 MG TAB (IMMEDIATE RELEASE) PO PRN (04:31)
[2022-05-15] MEDS ORDERED: LORazepam 0.5 MG in SYRINGE 0.25 ML IV PRN (04:31)
[2022-05-15] MEDS ORDERED: MoRPHine SULFATE 4 MG/ML 1 ML CARP\\VIAL IV PRN (04:31)
[2022-05-15 04:46] LABS: Ferritin 7.7 ng/ml (8-388)
--- NOTE | 2022-05-15 08:22 | Urology Consultation ---
Date of Consultation May 15, 2022 Assessment & Plan (1) Ureterolithiasis: (2) Renal colic on left side: Plan 76yo M admitted with intractable left flank pain secondary to an obstructing left UVJ stone. - Afebrile and hemodynamically stable. - No leukocytosis, normal renal function. - Urinalysis not overly suspicious for infection. - Given his intractable pain and nausea will plan for OR today for cystoscopy, left ureteroscopy, laser lithotripsy, stent placement with Dr. Boucher. - Will cover with IV ciprofloxacin preoperatively. - Keep NPO. - Continue supportive care and pain management. - Pt agreeable to plan, all questions were answered. Supervising Physician Co-Signing Physician Notes plan for left ureteroscopy and laser lithotripsy with stent placement - risks, benefits, and expectations reviewed History of Present Illness Reason for Consultation: Obstructive uropathy Attending Physician: Bella Morton, History of Present Illness 76-year-old male with a past medical history significant for CVA, hypertension, hyperlipidemia, GERD, BPH, ongoing tobacco abuse, possible alcohol abuse admitted with left flank pain secondary to an obstructing left UVJ stone. Urology consulted for obstructive uropathy. CT abdomen pelvis IMPRESSION: 1. 8 mm x 5 mm left ureterovesical junction calculus which results in mild left hydroureteronephrosis with perinephric fluid. 2. Small bilateral renal calculi. Patient examined at bedside in the ED. Awake, resting in bed on arrival. No acute distress. Denies prior history of stones. Does not currently follow with a urologist. Allergies Allergy/AdvReac Type Severity Reaction Status Date / Time No Known Allergies Allergy Verified 05/14/22 22:51 Home Medications Medication Instructions Recorded Confirmed Type dutasteride 0.5 mg capsule 0.5 mg PO QAM 07/20/19 05/14/22 History lisinopril 30 mg tablet 30 mg PO QAM 07/20/19 05/14/22 History meclizine 25 mg tablet 25 mg PO DIRECTED PRN Dizziness 07/20/19 05/14/22 History naproxen sodium 220 mg tablet 220 mg PO BID 07/20/19 05/14/22 History (Aleve) omeprazole 40 mg capsule,delayed 40 mg PO QAM 07/20/19 05/14/22 History release oxybutynin chloride 5 mg tablet 5 mg PO BID 07/20/19 05/14/22 History simvastatin 40 mg tablet 40 mg PO HS 07/20/19 05/14/22 History terazosin 5 mg capsule 5 mg PO HS 07/20/19 05/14/22 History aspirin 81 mg tablet,delayed 81 mg PO DAILY 05/14/22 05/14/22 History release metoprolol succinate 25 mg 25 mg PO QAM 05/14/22 05/14/22 History tablet,extended release 24 hr Patient History Medical History BPH (benign prostatic hyperplasia) Cardiac murmur doesnt follow with anyone DX As CHILD Chronic back pain neck- cant turn side to side very well. up and down is ok Diverticular disease has had in past GERD (gastroesophageal reflux disease) Hearing deficit Hyperlipidemia Hypertension Surgical History History of colonoscopy History of deviated nasal septum with repair History of ingrown nail LEFT FOOT WITH REPAIR Hx of hernia repair Social History Smoking Status: Current some day smoker Cigarettes Per Day: 15; Second Hand Exposure: Yes; Do You Dip or Chew Tobacco: No; Tobacco Cessation Education Requested by Patient: No Hx Alcohol Use: Yes Alcohol type: beer and hard liquor Hx Substance Use: Yes Last Used Substance: Hours (ago) Last Used Substance Other:: DAILY USE Preferred Language: Amharic Communication Ability: Effective [employer] Required: No Beliefs That Will Affect Care: None Current Living Situation: Alone Other Information That Helps Us Care for You: No Feels Safe at Home: Yes Safety Concerns: Feels Safe At This Time Assistive Devices: None Review of Systems Review of Systems: All systems reviewed & are unremarkable except as noted in HPI & below Physical Exam Constitutional: no acute distress and not ill appearing Neck: normal visual inspection Respiratory: normal respiratory effort; no respiratory distress and no labored breathing Gastrointestinal (Abdomen): Inspection/Auscultation: abdomen normal to inspection; abdomen not distended Musculoskeletal: Head/Neck/Chest: normocephalic Skin: No visible rashes or lesions to exposed skin areas Neurologic: moves all extremities and awake Psychiatric: Orientation: alert, oriented x 3 and cooperative Genitourinary: no CVA tenderness Results & Data ([facility]) Vital Signs (Past 12 Hours) Vital Signs Temp Pulse Pulse Resp BP BP Pulse Ox 05/15/22 04:59 36.5 C 55 L 16 126/80 96 05/15/22 04:30 54 L 16 108/75 96 05/15/22 03:00 54 L 16 133/88 94 05/15/22 01:00 55 L 16 119/78 97 05/14/22 22:49 63 18 118/79 98 05/14/22 21:09 36.8 C 66 18 163/83 H 100 O2 Del Method 05/15/22 04:59 Room Air 05/15/22 04:30 Room Air 05/15/22 03:00 Room Air 05/15/22 01:00 Room Air 05/14/22 22:49 Room Air 05/14/22 21:09 Room Air PG Care Time/CCT Total # of Minutes Spent Total Time Spent with Patient: Total time spent is greater than 50% in coordination of care (as documented) at patient's floor/unit and/or counseling patient: Coding Level of Care Code 27072 Initial Inpt Care Lvl 2 Diagnoses Ureterolithiasis N20.1 Renal colic on left side N23
--- NOTE | 2022-05-15 08:35 | CT Scan Report ---
CT OF THE ABDOMEN AND PELVIS WITH CONTRAST CLINICAL HISTORY: Left lower quadrant abdominal pain. COMPARISON STUDY: CT of the abdomen and pelvis August 11, 2021. TECHNIQUE: Following IV administration of 83 mL of Optiray, axial images of the abdomen and pelvis we re obtained from the lung bases to the proximal femurs. Images were reviewed in the axial, sagittal, and coronal planes. IV contrast was administered without complication. Automated exposure control wa s utilized for the study. A dose lowering technique was utilized adhering to the principles of ALARA . CT DOSE: 278.45 mGy.cm FINDINGS: A 7 mm left lower lobe pulmonary nodule on image 62 of [address] of r 2017. This is benign. No pneumatosis, free air or portal venous gas is present. There is no bili adilia or pancreatic ductal dilatation. A cyst within lower pole of the left kidney is noted. 3 mm calcu tracy within the lower pole of the left kidney is noted. There is a 3 mm calculus within the midpole th e right kidney. There is mild left hydroureteronephrosis with perinephric stranding due to a 8 x 5 mm left ureterovesical junction calculus. No additional ureteral calculi. There is colonic diverticulos is without evidence for acute diverticulitis. There is no evidence for a bowel obstruction. The abdom inal aorta is ectatic. There is no lymphadenopathy. No acute fracture or suspicious lesion within vis ualized skeletal structures is present. IMPRESSION: 1. 8 mm x 5 mm left ureterovesical junction calculus which results in mild left hydroureteronephrosis with perinephric fluid. 2. Small bilateral renal calculi. ACT 112: Negative or not required by law. Electronically signed by: Antolin Mcneal M.D. 05/15/2022 8:32 AM
[2022-05-15] MEDS ORDERED: OXYBUTYNIN CHLORIDE 5 MG TAB PO SCH (09:00)
[2022-05-15] MEDS ORDERED: FINASTERIDE 5 MG TAB PO SCH (09:00)
[2022-05-15] MEDS ORDERED: PANTOprazole 40 MG TAB PO SCH (09:00)
[2022-05-15] MEDS ORDERED: ENOXAPARIN INJ 40 MG/0.4 ML SYR SQ SCH (09:00)
[2022-05-15] MEDS ORDERED: NON-FORMULARY MEDICATION (Dutasteride 0.5 mg Capsule) PO SCH (09:00)
[2022-05-15] MEDS ORDERED: METOPROLOL SUCC 25MG EXT REL TAB PO SCH (09:00)
[2022-05-15] MEDS ORDERED: ASPIRIN 81 MG ECTAB PO SCH (09:00)
[2022-05-15] MEDS ORDERED: lisinopril 10 MG TAB PO SCH (09:00)
[2022-05-15] MEDS ORDERED: fentaNYL citrate 100 MCG/2 ML VIAL ONE (09:27)
[2022-05-15] MEDS ORDERED: ONDANSETRON INJ 2 MG/ML 2 ML VIAL ONE (09:27)
[2022-05-15] MEDS ORDERED: LIDOCAINE 2% MPF LOCAL 5 ML VIAL INFIL ONE (09:27)
[2022-05-15] MEDS ORDERED: DEXAMETHASONE SOD INJ 4 MG/ML VIAL ONE (09:27)
[2022-05-15] MEDS ORDERED: PROPOFOL IV EMULSION 10 MG/ML 20 ML VIAL IV ONE (09:27)
[2022-05-15] MEDS ORDERED: CIPROFLOXACIN / D5W 400 MG/200 ML BAG IV SCH (09:30)
[2022-05-15] MEDS ORDERED: ATROPINE SULFATE 0.1 MG/ML 10ML SYR IV PRN (09:33)
[2022-05-15] MEDS ORDERED: ePHEDrine sulfate 50 MG/ML AMP IV PRN (09:33)
[2022-05-15] MEDS ORDERED: ONDANSETRON INJ 2 MG/ML 2 ML VIAL IV PRN (09:33)
[2022-05-15] MEDS ORDERED: fentaNYL citrate 100 MCG/2 ML VIAL IV PRN (09:33)
[2022-05-15] MEDS ORDERED: PHENYLEPHRINE 100MCG/ML 5ML SYR IV PRN (09:33)
[2022-05-15] MEDS ORDERED: LABETALOL HCL IV 5 MG/ML 20ML IV PRN (09:33)
[2022-05-15] MEDS ORDERED: MEPERIDINE HCL 25 MG/ML CARP/VIAL IV PRN (09:33)
[2022-05-15] MEDS ORDERED: HYDROmorphone INJ 1 MG/ML SYRINGE IV PRN (09:33)
--- NOTE | 2022-05-15 09:44 | Anesthesiology Consultation ---
Date of Service May 15, 2022 Assessment & Plan (1) Encounter for pre-operative examination: Chart Review Chart Review: Acceptable Risk for Surgery and Patient NOT seen in Pre Admission Testing Consults Requested none History Surgery Operation Date: 05/15/22 13:25 Proposed Procedures p Cystoscopy, Left Ureteroscopy, Laser Lithotripsy, Stent Insertion - Logan Boucher MD Height/Weight Height: 5 ft 6 in Weight: 67.3 kg Allergies Allergy/AdvReac Type Severity Reaction Status Date / Time No Known Allergies Allergy Verified 05/14/22 22:51 Medications Home Medications Medication Instructions Recorded Confirmed Last Taken dutasteride 0.5 mg capsule 0.5 mg PO QAM 07/20/19 05/14/22 05/14/22 lisinopril 30 mg tablet 30 mg PO QAM 07/20/19 05/14/22 05/14/22 meclizine 25 mg tablet 25 mg PO DIRECTED PRN Dizziness 07/20/19 05/14/22 08/08/19 naproxen sodium 220 mg tablet 220 mg PO BID 07/20/19 05/14/22 05/14/22 08:00 (Aleve) omeprazole 40 mg capsule,delayed 40 mg PO QAM 07/20/19 05/14/22 05/14/22 release oxybutynin chloride 5 mg tablet 5 mg PO BID 07/20/19 05/14/22 05/14/22 08:00 simvastatin 40 mg tablet 40 mg PO HS 07/20/19 05/14/22 05/13/22 terazosin 5 mg capsule 5 mg PO HS 07/20/19 05/14/22 05/13/22 aspirin 81 mg tablet,delayed 81 mg PO DAILY 05/14/22 05/14/22 05/14/22 release metoprolol succinate 25 mg 25 mg PO QAM 05/14/22 05/14/22 05/14/22 tablet,extended release 24 hr Active Medications Generic Name Dose Route Start Last Admin Trade Name Freq PRN Reason Stop Dose Admin Aspirin 81 mg 05/15/22 09:00 05/15/22 07:54 Aspirin 81 Mg Ectab PO 06/14/22 08:59 81 mg DAILY STEFANIE Administration Enoxaparin Sodium 40 mg 05/15/22 09:00 05/15/22 07:54 Enoxaparin Inj 40 Mg/0.4 Ml Syr SQ 06/14/22 08:59 40 mg QAM STEFANIE Administration Finasteride 5 mg 05/15/22 09:00 05/15/22 07:54 Finasteride 5 Mg Tab PO 06/14/22 08:59 5 mg DAILY STEFANIE Administration Multivitamins 10 ml/ Thiamine 1,011.2 mls @ 100 mls/hr 05/15/22 02:14 05/15/22 04:37 HCl 100 mg/ Folic Acid 1 mg/ IV 05/15/22 12:20 100 mls/hr Sodium Chloride .Q10H7M ONE Administration Lisinopril 30 mg 05/15/22 09:00 05/15/22 07:54 Lisinopril 10 Mg Tab PO 06/14/22 08:59 30 mg QAM STEFANIE Administration Metoprolol Succinate 25 mg 05/15/22 09:00 05/15/22 07:55 Metoprolol Succ 25mg Ext Rel Tab PO 06/14/22 08:59 25 mg QAM STEFANIE Administration Oxybutynin Chloride 5 mg 05/15/22 09:00 05/15/22 07:55 Oxybutynin Chloride 5 Mg Tab PO 06/14/22 08:59 5 mg BID STEFANIE Administration Pantoprazole Sodium 40 mg 05/15/22 09:00 05/15/22 07:55 Pantoprazole 40 Mg Tab PO 06/14/22 08:59 40 mg QAM STEFANIE Administration NPO Date Last Intake of Fluids: 05/14/22 Time Last Intake of Fluids: 18:00 Date Last Intake of Solids: 05/14/22 Time Last Intake of Solids: 18:00 Past Medical History Medical History BPH (benign prostatic hyperplasia) Cardiac murmur doesnt follow with anyone DX As CHILD Chronic back pain neck- cant turn side to side very well. up and down is ok Diverticular disease has had in past GERD (gastroesophageal reflux disease) Hearing deficit Hyperlipidemia Hypertension Past Surgical History Surgical History History of colonoscopy History of deviated nasal septum with repair History of ingrown nail LEFT FOOT WITH REPAIR Hx of hernia repair Social History Smoking Status: Current some day smoker tobacco type: cigars Smoking cigarettes per day: 15 Do You Dip or Chew Tobacco: No Hx Alcohol Use: Yes Alcohol type: beer and hard liquor alcohol intake frequency: 3 or more drinks per day Hx Substance Use: Yes substance use type: marijuana Last Used Substance: Hours (ago) Last Used Substance Other:: DAILY USE Physical Exam Vital Signs Last Vital Signs Temp 36.9 C 05/15/22 08:52 Pulse 50 L 05/15/22 08:52 Resp 18 05/15/22 08:52 BP 167/101 H 05/15/22 08:52 Pulse Ox 99 05/15/22 08:52 O2 Del Method 05/15/22 08:52 Testing Laboratory Results 05/15/22 03:31 05/15/22 03:31 Urine Color Yellow 05/14/22 21:20 Urine Appearance Clear (Clear) 05/14/22 21:20 Urine pH 5.0 (4.5-7.5) 05/14/22 21:20 Ur Specific [place] 1.016 (1.000-1.030) 05/14/22 21:20 Urine Protein Trace (Negative) H 05/14/22 21:20 Urine Glucose (UA) Negative (Negative) 05/14/22 21:20 Urine Ketones Negative (Negative) 05/14/22 21:20 Urine Nitrite Negative (Negative) 05/14/22 21:20 Ur Leukocyte Esterase Negative (Negative) 05/14/22 21:20 Urine WBC (Auto) 5-10 /hpf (0-5) H 05/14/22 21:20 Urine RBC (Auto) 10-30 /hpf (0-4) H 05/14/22 21:20 U Hyaline Cast (Auto) 1-5 /lpf (0-5) 05/14/22 21:20 U Epithel Cells (Auto) 5-10 /lpf (0-5) H 05/14/22 21:20 Urine Bacteria (Auto) Negative (Negative) 05/14/22 21:20 Blood Type A Negative 05/15/22 03:31 Antibody Screen NEGATIVE 05/15/22 03:31 Electrocardiogram Date: 05/15/22 Findings: + SB @ (51) 1st degree AV block
--- NOTE | 2022-05-15 10:47 | Discharge Summary ---
Date of Service May 15, 2022 Admission HPI Per Admitting Provider History obtained from patient and records. Medical history significant for CVA, hypertension, hyperlipidemia, PSVT, GERD, BPH, ongoing tobacco abuse, possible alcohol abuse. Yesterday, patient noted achy left flank left abdominal pain without nausea, emesis symptoms. No hematuria, no fever, no chills. No black/bloody stools. No prior episodes. Patient consulted ER for evaluation. Medical History as above Surgical History : Cataract surgeries, hernia repair Family History : Kidney stones, dementia, stroke Personal/Social history : Cigar use, daily alcohol intake which can be heavy from time to time, [employer] business Principal Diagnosis Kidney stone Discharge Data Allergies Allergy/AdvReac Type Severity Reaction Status Date / Time No Known Allergies Allergy Verified 05/14/22 22:51 Consultations 05/15/22 01:37 ED Decision to Admit Stat 05/15/22 04:31 Consult Urology Routine Procedures Performed Operation Date: 05/15/22 13:25 Actual Procedures p Cystoscopy, Left Ureteroscopy, Laser Lithotripsy, Left Ureteral Stent Insertion(Left) - Logan Boucher MD Ordered Studies 05/14/22 22:20 CT Abd and Pelvis [CT abd pelvis IV con only] Urgent 05/15/22 10:15 FL KUB Routine Hospital Course (1) Ureterolithiasis: Patient admitted through the emergency room secondary to intractable left renal colic Found have a distal ureteral stone fortunately we were able to take him to the operating room immediately His stone was treated with ureteroscopy and laser lithotripsy He has a stent placed and has outpatient follow-up scheduled for stent removal He was in stable condition and was discharged home on 05/15/2022 Total Time Total Time Spent Total Time Spent (In Minutes): 20 Discharge Plan Discharge Items Patient Disposition: Home - Self-Care Reason For Visit: OBS UROPATHY Discharge Diagnosis: kidney stone Condition on Discharge: Fair Activity: Resume your previous activity Lifting: Gradually increase as tolerated Bathing: No limitations Sexual Activity: When tolerated Driving/Machine Use: Resume 1 day after discharge Non-emergency contact: Urologist Call non-emergency contact if: you have any medication questions, your pain is worsening, you have a fever and your temperature is above 101.5 Follow-up/Referrals: Lianne Pedersen DO [Primary Care Provider] - Diet: Regular Addtl Attending Provider Instructions: Please take all medications as prescribed and keep all follow-ups as scheduled. Please call our office at [phone] with any questions, concerns or need to reschedule appointments for any reason. We are happy to assist you. While you have a ureteral stent in place: Some discomfort is normal. Certain movements may trigger pain or a feeling that you need to urinate. You may also feel mild soreness or pressure before or during urination. These symptoms should go away a few days after the stent is removed. Your urine may be slightly pink or red. This is due to bleeding caused by minor irritation from the stent. This may happen on and off while you have the stent, it is not harmful and is to be expected. Medication to help minimize discomfort or bladder spasms, or to prevent infection may be prescribed. Take this as directed. Drink plenty of fluids to help flush out your urinary tract. If you go home with a catheter, wash with soapy water and a fresh washcloth twice daily. We recommend mild bar soap such as Dial or Dove. How long will you need a stent? An appointment should already be made for you for stent removal, unless directed otherwise. The stent is often taken out after the blockage in the ureter is treated or the ureter has healed. This may take 1-2 weeks, or longer. If a stent is needed for a longer period of time, it may need to be exchanged every few wed. Likely prior to your followup appointment you will be asked to get an X-ray, please complete this the night before or morning of your appointment. When to call [facility] at [phone]: Your urine contains heavy blood clots You are constantly leaking urine Fever of 101F or higher, chills, nausea, or vomiting Your pain is not relieved with medication The end of the stent comes out of your urethra Please come to Dr. Boucher's office on Wednesday at 1:45PM to have your stent removed. His office is at [address] [place] [address] Pending Studies at Discharge: Yes Studies:: chemical analysis of stones Stand-Alone Forms: My Elysia, Smoking Cessation Medications and DC Order Prescriptions: New ciprofloxacin HCl [Cipro] 500 mg tablet 500 mg PO BID Qty: 6 0RF hydrocodone-acetaminophen 5-325 mg tablet 1 tab PO Q6H PRN (Reason: pain) Qty: 10 0RF Continued terazosin 5 mg Capsule 5 mg PO HS omeprazole 40 mg Capsule,Delayed Release(Dr/Ec) 40 mg PO QAM simvastatin 40 mg Tablet 40 mg PO HS meclizine 25 mg Tablet 25 mg PO DIRECTED PRN (Reason: Dizziness) naproxen sodium [Aleve] 220 mg Tablet 220 mg PO BID lisinopril 30 mg Tablet 30 mg PO QAM oxybutynin chloride 5 mg Tablet 5 mg PO BID dutasteride 0.5 mg Capsule 0.5 mg PO QAM aspirin 81 mg Tablet,Delayed Release (Dr/Ec) 81 mg PO DAILY metoprolol succinate 25 mg tablet extended release 24 hr 25 mg PO QAM Discharge Orders: Discharge Order (Routine); Ordered 05/15/22 Ordered By: Logan Boucher Admission Data Admit Date/Time: 05/15/22 02:16 Attending Provider: Bella Morton Admit Provider: Radames Owen Primary Care Provider: Lianne Pedersen Other Providers: Radames Owen ; Live Handy ; Kyle Valentine ; Logan Boucher ; Ev Lagunas ; Royal Osborn ; Lorene Chang Melissa A. ; Ghanshyam Alvarez ; Manuel Oneal ; Radha Perales ; Bud Acosta ; Martha Marcelo ; Willy Melton Coding Level of Care Code D/C DAY MANAGEMENT <30 MINS Diagnoses Ureterolithiasis N20.1
--- NOTE | 2022-05-15 11:07 | Anesthesiology Progress Note ---
Date of Service May 15, 2022 Anesthesia Post Procedure Vital Signs Vital Signs: Temp Pulse Pulse Pulse Resp BP BP 05/15/22 10:55 74 16 148/94 H 05/15/22 10:47 36.1 C L 78 16 157/95 H 05/15/22 08:52 36.9 C 50 L 18 167/101 H 05/15/22 04:59 36.5 C 55 L 16 126/80 05/15/22 04:30 54 L 16 108/75 05/15/22 03:00 54 L 16 133/88 05/15/22 01:00 55 L 16 119/78 05/14/22 22:49 63 18 118/79 05/14/22 21:09 36.8 C 66 18 163/83 H Pulse Ox O2 Del Method O2 Flow Rate 05/15/22 10:55 100 Oxymask 3 05/15/22 10:47 97 Oxymask 5 05/15/22 08:52 99 Room Air 05/15/22 04:59 96 Room Air 05/15/22 04:30 96 Room Air 05/15/22 03:00 94 Room Air 05/15/22 01:00 97 Room Air 05/14/22 22:49 98 Room Air 05/14/22 21:09 100 Room Air Transfer of Care Handoff Completed per policy Notes Mental Status: alert / awake / arousable Patient Amnestic to Procedure: Yes Nausea / Vomiting: adequately controlled Pain: adequately controlled Airway Patency, RR, SpO2: stable & adequate BP & HR: stable & adequate Hydration State: stable & adequate Anesthetic Complications: no major complications apparent and Pt Satisfied with anesthetic care
--- NOTE | 2022-05-15 11:55 | Fluoroscopy Report ---
FL KUB CLINICAL HISTORY: Left stent placement. COMPARISON STUDY: CT of the abdomen and pelvis May 14, 2022. FLUOROSCOPY TIME: 4 seconds. FLUOROSCOPIC IMAGES: 3 FINDINGS: Fluoroscopy was provided during cystoscopy, lithotripsy and left ureteral stent placement. IMPRESSION: Fluoroscopy provided cystoscopy, lithotripsy and left ureteral stent placement. ACT 112: Negative or not required by law. Electronically signed by: Antolin Mcneal M.D. 05/15/2022 11:54 AM
[2022-05-15] MEDS ORDERED: TERAZOSIN HCL 5 MG CAP PO SCH (21:00)
[2022-05-15] MEDS ORDERED: SIMVASTATIN 40 MG TAB PO SCH (21:00)
--- NOTE | 2022-05-16 06:26 | Electrocardiogram Report ---
Test Reason : Blood Pressure : / mmHG Vent. Rate : 051 BPM Atrial Rate : 051 BPM P-R Int : 218 ms QRS Dur : 094 ms QT Int : 440 ms P-R-T Axes : 029 076 067 degrees QTc Int : 405 ms Sinus bradycardia with 1st degree A-V block Otherwise normal ECG When compared with ECG of 26-JUL-1994 20:55, SD interval has increased Confirmed by Fredis Valdez ([id number]) on 05/16/2022 6:25:45 AM Referred By: REFERRED SELF Confirmed By:Fredis Valdez
[2022-05-16] MEDS ORDERED: MULTIVITAMIN TAB PO SCH (09:00)
[2022-05-16] MEDS ORDERED: THIAMINE HCL 100 MG TAB PO SCH (09:00)
[2022-05-16] MEDS ORDERED: FOLIC ACID 1 MG TAB PO SCH (09:00)
[2022-05-16] MEDS ORDERED: TAMSULOSIN HCL 0.4 MG CAP PO SCH (21:00)
[2022-05-19 22:51] LABS: Component 2 DNR; Source LEFT RENAL STONE
--- NOTE | 2022-05-29 07:36 | Operative Report ---
PG Post Operative Report Pre & Post Diagnosis Operation Date: 05/15/22 13:25 Pre-Op Diagnosis: Left Ureteral Stone Post-Op Diagnosis: Left Ureteral Stone I identified the patient and participated in the time-out.: Yes Procedure Operation Date: 05/15/22 13:25 Actual Procedures p Left Ureteroscopy, Laser Lithotripsy, (Left) - Logan Boucher MD s Left Ureteral Stent Insertion(Left) - MD delia Norton Cystoscopy(Not Applicable) - Logan Boucher MD Surgeon Logan Boucher MD Christmas Tree Grower none Estimated Blood Loss 0 Findings Consistent with Post-Op Diagnosis Specimens none Description of Procedure The patient was identified in the preoperative holding area, appropriate informed consents were reviewed and completed and the patient was transferred to the operative suite. Upon arrival, appropriate antibiotics and anesthesia were administered and the patient was placed in dorsal lithotomy position and prepped and draped in sterile fashion. To begin the case I passed a 22 English cystoscope with 30 degree lens. Inspection revealed a healthy-appearing bladder Ureteral orifices were in orthotopic position. A sensor wire was guided into the left distal ureter and I then exchanged the cystoscope for a semirigid ureteroscope. After advancing this into the ureter I encountered a large stone. Utilizing 365 m laser fiber I fragmented the stone and irrigated all stone debris out of the ureter. I completed the case by placing a 6 x 26 stent. There is good curl in the kidney as well as the bladder. The case was concluded and he was reversed from anesthesia and taken to the recovery room in stable condition. There were no complications. I attest to the content of the Intraoperative Record and any orders documented therein. Any exceptions are noted below.
== END 2022-05-15 20:17 | disposition home or self-care (01) | DRG 694 ==
LOC: ED 21:06 → EDINP 05-15 02:16 → 3N 05-15 11:31
DX: Z86.73 Personal history of transient ischemic attack (TIA), and cerebral infarction without residual deficits; N13.2 Hydronephrosis with renal and ureteral calculous obstruction; K21.9 Gastro-esophageal reflux disease without esophagitis; F17.210 Nicotine dependence, cigarettes, uncomplicated; N40.0 Benign prostatic hyperplasia without lower urinary tract symptoms; Z84.2 Family history of other diseases of the genitourinary system; I10 Essential (primary) hypertension; Z79.82 Long term (current) use of aspirin; N23 Unspecified renal colic; F10.10 Alcohol abuse, uncomplicated; E78.5 Hyperlipidemia, unspecified

== ENCOUNTER 2024-01-21 09:24 | Inpatient (IN) ==
--- NOTE | 2024-01-21 10:19 | Emergency Department Note ---
Impression & Plan Cat bite, Cellulitis of forearm, left, Rabies, need for prophylactic vaccination against ED Provider Note NAME: MARIANELA MITCHELL AGE: 78 SEX: M : 1945 ARRIVES VIA: Walk-In INFORMANT: Patient ED PROVIDER(S): Odin Marcial MD CHIEF COMPLAINT: Cat bite PLAN: Disposition: Admit MEDICAL DECISION MAKING: The patient is a pleasant 78-year-old gentleman with a past medical history of BPH, hypertension, hyperlipidemia who presents to the emergency department via walk-in for evaluation of a cat bite to his left forearm which reports he experienced last night when he was him to feed a feral cat. The patient reports he does not have access to the cat for monitoring. He does not believe his tetanus is up-to-date. He denies any prior rabies vaccination. Patient reports he took a shower and washed the area after the bite. He then applied antibiotic ointment. He reports the swelling developed quickly since last night. He is not on anticoagulation. On evaluation the patient is no distress, afebrile with heart in the 100s and vital signs otherwise stable. Appears clinically dry. He has swelling, erythema, warmth and tenderness on the dorsum of the distal left forearm with 2 central puncture wounds consistent the patient's cat bite last night with evidence of proximal lymphatic streaking on the dorsal and volar aspects of the forearm. There is no tender lymphadenopathy. He has distal PMS intact. WBC 11 K with neutrophil predominance though no left shift, nonspecific. H/H 11.3/33.2, similar to prior values. Platelets within normal limits. Chemistry without metabolic acidosis. Lactic acid 1.0, within normal limits. LFTs unremarkable. Procalcitonin is undetectable. 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 Given the rapid progression of the patient's pain, redness and swelling he does agree with plan for admission for further management. Rabies vaccine Day0 administered in addition to rabies immunoglobulin due to inability to isolate the animal. I did administer local injection into the puncture wounds totaling 2 cc with the remainder administered intramuscular by nursing. Blood cultures were obtained and treatment was initiated with Unasyn. Case was discussed with Bryson Multani, with Dr. Morton, [facility] hospitalist who will evaluate the patient for admission. Triage Nursing notes reviewed and agree them. Prior/external medical records reviewed Vital Signs: reviewed Differential diagnosis: Cellulitis, abscess, MRSA infection, DVT, necrotizing fasciitis, dermatitis, drug eruption, allergic reaction, as well as other pathologies. ER treatment provided: See below. Diagnostics interpreted by me: Cardiac Monitoring: An order for continuous cardiac monitoring was placed and demonstrated Sinus tachycardia, 109 bpm, no ectopy. Laboratory studies: See below Imaging studies: See below Consultation(s): Bryson Multani, with Bryson Zimmerman hospitalist HPI: The patient is a pleasant 78-year-old gentleman with a past medical history of BPH, hypertension, hyperlipidemia who presents to the emergency department via walk-in for evaluation of a cat bite to his left forearm which reports he experienced last night when he was him to feed a feral cat. The patient reports he does not have access to the cat for monitoring. He does not believe his tetanus is up-to-date. He denies any prior rabies vaccination. Patient reports he took a shower and washed the area after the bite. He then applied antibiotic ointment. He reports the swelling developed quickly since last night. He is not on anticoagulation. ROS: See above HPI for pertinent positives & negatives. A total of 10 systems reviewed and were otherwise negative. VITALS:See Below PHYSICAL EXAMINATION: GENERAL: Awake, alert, in no distress HENT: Normocephalic, atraumatic. Oropharynx unremarkable. EYES: Normal conjunctiva. Sclera non-icteric. NECK: Supple. No nuchal rigidity. FROM. No JVD. RESPIRATORY: Clear to auscultation. CARDIAC: Tachycardic rate, normal rhythm. Extremities warm and well perfused. Pulses equal. ABDOMEN: Soft, non-distended. No tenderness to palpation. No rebound or guarding. No masses. MUSCULOSKELETAL: Chest examination reveals no tenderness. The back is symmetrical on inspection without obvious abnormality. There is no CVA tenderness to palpation. Swelling, erythema, warmth and tenderness on the dorsum of the distal left forearm with 2 central puncture wounds consistent the patient's cat bite last night with evidence of proximal lymphatic streaking on the dorsal and volar aspects of the forearm. There is no tender lymphadenopathy. He has distal PMS intact. FROM intact. LOWER EXTREMITIES: Calves are equal size bilaterally and non-tender. No edema. No discoloration. NEURO: Normal sensorium. No sensory or motor deficits noted. SKIN: No jaundice noted. ED COURSE: Procedures: Rabies immunoglobulin administration Indication: Cat bite with inability to isolate animal in individual unvaccinated agains fromt rabies. Location: Dorsal distal left forearm. Consent obtained for local injection of rabies immunoglobulin per guidelines. Puncture site was cleaned with Betadine. Local injection with 25 cc gauge needle into the puncture wounds totaling 2 cc was administered. Remaining 3cc of total dose administered intramuscularly by nursing. Odin Marcial MD Past Med/Surg History Medical History History of paroxysmal supraventricular tachycardia Encounter for pre-operative examination Ureterolithiasis Chronic back pain neck- cant turn side to side very well. up and down is ok BPH (benign prostatic hyperplasia) Diverticular disease has had in past GERD (gastroesophageal reflux disease) Hearing deficit Cardiac murmur doesnt follow with anyone DX As CHILD Hypertension Hyperlipidemia Surgical History History of ingrown nail LEFT FOOT WITH REPAIR History of deviated nasal septum with repair History of colonoscopy Hx of hernia repair Social History Smoking Status: Never smoker Cigarettes Per Day: 15; Second Hand Exposure: Yes; Do You Dip or Chew Tobacco: No; Hx Alcohol Use: Yes Alcohol type: beer and hard liquor Hx Substance Use: No Preferred Language: Swiss Communication Ability: Effective Final Operations Technician Required: No Beliefs That Will Affect Care: None Current Living Situation: Alone Other Information That Helps Us Care for You: No Feels Safe at Home: Yes Safety Concerns: Feels Safe At This Time Assistive Devices: None Allergies Allergies Allergy/AdvReac Type Severity Reaction Status Date / Time No Known Allergies Allergy Verified 05/18/22 13:52 Home Meds Home Medications Medication Instructions Recorded Confirmed dutasteride 0.5 mg capsule 0.5 mg PO QAM 07/20/19 01/21/24 lisinopril 30 mg tablet 30 mg PO QAM 07/20/19 01/21/24 omeprazole 40 mg capsule,delayed 40 mg PO QAM 07/20/19 01/21/24 release oxybutynin chloride 5 mg tablet 5 mg PO BID 07/20/19 01/21/24 simvastatin 40 mg tablet 40 mg PO HS 07/20/19 01/21/24 terazosin 5 mg capsule 5 mg PO HS 07/20/19 01/21/24 aspirin 81 mg tablet,delayed 81 mg PO DAILY 05/14/22 01/21/24 release metoprolol succinate 25 mg 25 mg PO QAM 05/14/22 01/21/24 tablet,extended release 24 hr Results & Data (ED) Vital Signs Vital Signs - 24 hr 01/21/24 09:33 Temperature 36.7 C Temperature Source Temporal Artery Scan Pulse Rate 100 H Respiratory Rate 15 Respiratory Effort / Characteristics Non-Labored Respiratory Depth Normal Blood Pressure 149/90 H Blood Pressure Mean 109 Pulse Oximetry 99 Oxygen Delivery Method Room Air Sepsis Recent Fever Within 48 Hours No Sepsis New/Unexplained Change in Mental Status No Sepsis Action Taken by Nursing No Action Required Laboratory Data Attestation: I reviewed the patient's lab results. 01/21/24 10:00 01/21/24 10:00 Lab Results 01/21/24 Range/Units 10:00 WBC 11.15 H (4.8-10.8) K/ul RBC 3.66 L (4.70-6.10) M/uL Hgb 11.3 L (14.0-18.0) g/dl Hct 33.2 L (42.0-52.0) % MCV 90.7 (80.0-100.0) fL MCH 30.9 (25.0-34.0) pg MCHC 34.0 (32.0-36.0) g/dL RDW Std Deviation 50.0 H (36.4-46.3) fL RDW Coeff of Vic 15.0 H (11.5-14.5) % Plt Count 165 (130-400) K/uL MPV 11.6 (9.4-12.4) fL Immature Gran % (Auto) 0.3 % Neut % (Auto) 82.3 % Lymph % (Auto) 9.1 % Smith % (Auto) 7.5 % Eos % (Auto) 0.3 % Baso % (Auto) 0.5 % Neut # (Auto) 9.18 H (1.40-6.50) K/uL Lymph # (Auto) 1.01 L (1.20-3.40) K/uL Smith # (Auto) 0.84 H (0.11-0.59) K/uL Eos # (Auto) 0.03 (0.00-0.50) K/uL Baso # (Auto) 0.06 (0.00-0.20) K/uL Immature Gran # (Auto) 0.03 (0.01-0.20) K/uL Sodium 141 (136-145) mmol/L Potassium 3.7 (3.5-5.1) mmol/L Chloride 109 H (98-107) mmol/L Carbon Dioxide 26 (21-32) mmol/L Anion Gap 6 (3-11) BUN 15 (6-23) mg/dl Creatinine 0.80 (0.6-1.4) mg/dl Est Cr Clr Drug Dosing 65.1 ml/min Est GFR ( Amer) 98.5 ml/min Est GFR (Non-Af Amer) 85.0 ml/min BUN/Creatinine Ratio 18.8 (10-20) Glucose 97 (70-99(Fasting)) mg/dl Lactate 1.0 (0.4-2.0) mmol/L Calcium 9.4 (8.6-10.3) mg/dl Total Bilirubin 1.0 (0.2-1.0) mg/dl AST 22 (13-39) U/L ALT 13 (7-52) U/L Alkaline Phosphatase 51 (34-104) U/L Total Creatine Kinase 134 (30-223) U/L Total Protein 6.7 (6.0-8.3) gm/dl Albumin 4.2 (3.4-5.0) gm/dl Globulin 2.5 (2.5-4.0) gm/dl Albumin/Globulin Ratio 1.7 (0.9-2) Procalcitonin < 0.02 (0-0.5) ng/ml Administered Medications Acetaminophen (Acetaminophen 325 Mg Tab) 650 mg PO Q4H PRN PRN Reason: Pain or Fever Stop: 02/20/24 11:42 Last Admin: 01/21/24 22:43 Dose: 650 mg Documented By: AKP Ampicillin Sodium/Sulbactam Sodium 3,000 mg/ Sodium Chloride 100 mls @ 100 mls/hr IV Q6H STEFANIE Stop: 01/28/24 15:59 Last Infusion: 01/21/24 22:30 Dose: Infused Documented By: Admin: 01/21/24 21:21 Dose: 100 mls/hr Documented By: Infusion: 01/21/24 18:11 Dose: Infused Documented By: Admin: 01/21/24 17:08 Dose: 100 mls/hr Documented By: KYE Ketorolac Tromethamine (Ketorolac Tromethamine 15 Mg/Ml Vial) 15 mg IV Q6H PRN PRN Reason: Pain Stop: 01/26/24 13:00 Last Admin: 01/21/24 21:20 Dose: 15 mg Documented By: TRISH Oxybutynin Chloride (Oxybutynin Chloride 5 Mg Tab) 10 mg PO BID STEFANIE Stop: 02/20/24 20:59 Last Admin: 01/21/24 20:57 Dose: 10 mg Documented By: TRISH Simvastatin (Simvastatin 40 Mg Tab) 40 mg PO HS STEFANIE Stop: 02/20/24 20:59 Last Admin: 01/21/24 20:58 Dose: 40 mg Documented By: TRISH Terazosin HCl (Terazosin Hcl 5 Mg Cap) 5 mg PO HS STEFANIE Stop: 02/20/24 20:59 Last Admin: 01/21/24 20:58 Dose: 5 mg Documented By: TRISH Discontinued Medications Sodium Chloride (Nss) 1,000 mls @ 999 mls/hr IV .Q1H1M ONE Stop: 01/21/24 10:57 Last Infusion: 01/21/24 15:52 Dose: Infused Documented By: Admin: 01/21/24 10:23 Dose: 999 mls/hr Documented By: LAURA Acetaminophen (Ofirmev) 1,000 mg in 100 mls @ 400 mls/hr IV NOW STA Stop: 01/21/24 10:11 Last Infusion: 01/21/24 10:41 Dose: Infused Documented By: Admin: 01/21/24 10:23 Dose: 400 mls/hr Documented By: LAURA Ampicillin Sodium/Sulbactam Sodium 3,000 mg/ Sodium Chloride 100 mls @ 200 mls/hr IV NOW STA Stop: 01/21/24 10:27 Last Infusion: 01/21/24 11:57 Dose: Infused Documented By: Admin: 01/21/24 10:47 Dose: 200 mls/hr Documented By: LAURA Ketorolac Tromethamine (Ketorolac Tromethamine 15 Mg/Ml Vial) 15 mg IV NOW STA Stop: 01/21/24 13:39 Last Admin: 01/21/24 14:26 Dose: 15 mg Documented By: LORENZO Rabies Immune Globulin (Rabies Immune Globulin (Human) 300 Units/Ml Vial) 1,410 units IM .ONCE ONE Stop: 01/21/24 10:10 Last Admin: 01/21/24 11:53 Dose: 1,410 units Documented By: MR Rabies Vaccine Human Diploid Cell (Rabies Vacc (Imovax) Human Dipl Cell 2.5 Units/Ml Syr) 2.5 units IM .ONCE ONE Stop: 01/21/24 10:10 Last Admin: 01/21/24 11:57 Dose: 2.5 units Documented By: Tetanus/Diphtheria Toxoids Adsorbed (Diphtheria/Tetanus Tox Adsorb Vaccine (Td) 0.5 Ml Syr/Vial) 0.5 ml IM .ONCE ONE Stop: 01/21/24 09:58 Last Admin: 01/21/24 11:51 Dose: 0.5 ml Documented By: MR Imaging Data Radiologist's Impression: Forearm X-Ray 01/21/24 09:59 XR forearm LT 2V CLINICAL HISTORY: cat bite dorsal distal forearm r/o fb. COMPARISON: None FINDINGS: No fractures within the left radius or ulna are identified. No bony erosions are present. There is an old nonunited fracture of the ulnar styloid. Left forearm soft tissue swelling is present. There are no radiopaque foreign bodies. No soft tissue gas is identified. 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 IMPRESSION: 1. Left forearm soft tissue swelling. No radiopaque foreign bodies. 2. No evidence for osteomyelitis within the left radius or ulna. ACT 112: Negative or not required by law. Electronically signed by: Antolin Mcneal M.D. 01/21/2024 11:11 AM Discharge Plan Visit Data Chief Complaint: Animal Bite Stated Complaint: CAT BITE, INFECTION ED Provider: Odin Marcial Discharge Problem: Cat bite, Cellulitis of forearm, left, Rabies, need for prophylactic vaccination against Patient Disposition: Admitted As Inpatient Discharge Instructions Interventions: ED Discharge Assessment Last Done: 01/21/24 21:41 Discharge Problem: Cat bite Qualifiers: Encounter type: initial encounter Qualified Code(s): W55.01XA - Bitten by cat, initial encounter
[2024-01-21] MEDS: SODIUM CHLORIDE 0.9% 1,000 ML IV ONE (10:23)
[2024-01-21] MEDS: ACETAMINOPHEN 1,000 MG/100 ML VIAL IV STA (10:23)
[2024-01-21] MEDS: AMPICILLIN/SULBACTAM SOD 3,000 MG in SODIUM CHLOR 0.9% MINI-B 100 ML IV STA (10:47)
[2024-01-21 10:53] LABS: Basophils # (auto) 0.06 K/uL (0.00-0.20); Basophils % (auto) 0.5 %; Eosinophils # (auto) 0.03 K/uL (0.00-0.50); Eosinophils % (auto) 0.3 %; Hematocrit (blood only) 33.2 % (42.0-52.0); Hemoglobin 11.3 g/dl (14.0-18.0); Immature Granulocytes # (auto) 0.03 K/uL (0.01-0.20); Immature Granulocytes % (auto) 0.3 %; Lymphocytes # (auto) 1.01 K/uL (1.20-3.40); Lymphocytes % (auto) 9.1 %; Mean Corpuscular Hemoglobin 30.9 pg (25.0-34.0); Mean Corpuscular Volume 90.7 fL (80.0-100.0); Mean Platelet Volume 11.6 fL (9.4-12.4); Monocytes # (auto) 0.84 K/uL (0.11-0.59); Monocytes % (auto) 7.5 %; Neutrophils # (auto) 9.18 K/uL (1.40-6.50); Neutrophils % (auto) 82.3 %; Platelet Count 165 K/uL (130-400); Red Blood Count 3.66 M/uL (4.70-6.10); White Blood Count 11.15 K/ul (4.8-10.8)
[2024-01-21 11:08] LABS: Albumin Globulin Ratio 1.7 (0.9-2); Albumin Level 4.2 gm/dl (3.4-5.0); BUN Creatinine Ratio 18.8 (10-20); Calcium 9.4 mg/dl (8.6-10.3); Creatinine Clr Calc Pharmacy 65.1 ml/min; Est GFR (African American) 98.5 ml/min; Globulin 2.5 gm/dl (2.5-4.0); Potassium 3.7 mmol/L (3.5-5.1); Total Protein 6.7 gm/dl (6.0-8.3)
--- NOTE | 2024-01-21 11:12 | XRay Report ---
XR forearm LT 2V CLINICAL HISTORY: cat bite dorsal distal forearm r/o fb. COMPARISON: None FINDINGS: No fractures within the left radius or ulna are identified. No bony erosions are present. There is an old nonunited fracture of the ulnar styloid. Left forearm soft tissue swelling is present . There are no radiopaque foreign bodies. No soft tissue gas is identified. Osteoarthritis of the lef t elbow and left first carpometacarpal joint. IMPRESSION: 1. Left forearm soft tissue swelling. No radiopaque foreign bodies. 2. No evidence for osteomyelitis within the left radius or ulna. ACT 112: Negative or not required by law. Electronically signed by: Antoiln Mcneal M.D. 01/21/2024 11:11 AM
[2024-01-21] MEDS ORDERED: ONDANSETRON INJ 2 MG/ML 2 ML VIAL IV PRN (11:43)
[2024-01-21] MEDS: DIPHTHERIA/TETANUS TOX ADSORB VACCINE (Td) 0.5 ML SYR/VIAL IM ONE (11:51)
[2024-01-21] MEDS: RABIES IMMUNE GLOBULIN (HUMAN) 300 UNITS/ML VIAL IM ONE (11:53)
--- NOTE | 2024-01-21 11:55 | History & Physical Report ---
Date of Service January 21, 2024 Assessment & Plan (1) Cellulitis of forearm, left: (2) Cat bite: (3) History of paroxysmal supraventricular tachycardia: (4) HTN (hypertension): (5) BPH (benign prostatic hyperplasia): (6) Hyperlipidemia: (7) GERD (gastroesophageal reflux disease): Plan Mr. Graham is a 78 y/o M was at his house feeding stray cats and one bit his left forearm yesterday between [id number]. His left forearm has a small s uperficial bite rebecca on the ventral aspect of his hand. He has erythema and swelling at the site with lymphangitis on the left dorsal forearm. He denies previous bites. He has seen this cat before and has fed it before, but it lives outside and is not domesticated. Mild leukocytosis WBC 11.15, lactate and procalcitonin normal. Otherwise electrolytes unremarkable.L Forearm x-ray indicates no osteomyelitis but soft tissue swelling; old ulnar styloid fracture noted. No retained foreign matter (tooth) noted. RIG x4 (R thigh x2, L thigh x1 and left forearm), rabies vaccine, and Tdap administered with initiation of Unasyn IV. 1L NS be administered. Patient will be admitted for further evaluation and management of forearm cellulitis and lymphangitis Obtain MRSA screen, blood cultures low yield but were obtained in ED, limb elevation, cover for staph with Unasyn and Ortho consult given location of bite/increased swelling around joint. Cellulitis of left wrist: Lymphangitis: s/p Cat bite: Acute Mild leukocytosis 11.15 Forearm x-ray: old nonunited fracture of the ulnar styloid. Soft tissue swelling; no osteomyelitis identified. No retained foreign matter noted. No concerns of necrotizing fascitis. Lactate and procalcitonin negative Blood cultures low yield obtained in ED MRSA screen ordered Tdap administered in ED Rig plus rabies vaccine administered in ED 1L NSB given in ED Check CPK level Unasyn started in ED; continue 3G Q6 and adjust based on culture results if needed Ketorolac PRN for pain Ortho consult placed History of PSVT: HTN: Chronic Takes metoprolol, terazosin, and lisinopril; continue [facility] HLD: Chronic Takes simvastatin; continue Last lipid panel 12/30/2022; TG 53, HDL 66, LDL 72 BPH: Chronic Takes terazosin; continue GERD: Chronic Takes omeprazole; continue Disposition: PCP: Dr. Lyn CODE STATUS: Full code VTE prophylaxis:Lovenox SQ I spent a total of 87 minutes coordinating, documenting, and providing care for this patient excluding time spent in the performance of separately billed services. All of the aforementioned completed while collaborating with the assigned attending physician for a full treatment plan. Please see their addendum for further details. History of Present Illness Chief Complaint: animal bite Primary Care Provider: Paul Lyn MD Mr. Graham is a 78 year old male that was at his house feeding stray cats and one bit his left forearm yesterday between [id number]. His left forearm has a small superficial bite rebecca on the ventral aspect of his hand. He has erythema and swelling at the site with lymphangitis on the left dorsal forearm. He denies previous bites. He has seen this cat before and has fed it before, but it lives outside and is not domesticated. The cat did not appear confused or aggressive and was not foaming at the mouth. Additional PMH includes: HTN, SVT, BPH, HLD and chronic rhinitis. Follows with [facility]. Mild leukocytosis WBC 11.15, lactate and procalcitonin normal. Otherwise electrolytes unremarkable. LFTs negative. Forearm x-ray indicates no osteomyelitis but soft tissue swelling; old ulnar styloid fracture noted. No retained foreign matter (tooth) noted. Reportedly smokes marijuana, occasional cigars, no alcohol use. In the ED Tdap, RIG x4 (R thigh x2, L thigh x1 and left forearm), rabies vaccine, and TDAPP administered with initiation of Unasyn IV. 1L NS be administered. Patient will be admitted for further evaluation and management of forearm cellulitis and lymphangitis Obtain MRSA screen, blood cultures low yield but were obtained in ED, limb elevation, cover for staph with Unasyn. Anticipate length of stay 1 to 2 days pending progression. Allergies Allergy/AdvReac Type Severity Reaction Status Date / Time No Known Allergies Allergy Verified 05/18/22 13:52 Home Medications Medication Instructions Recorded Confirmed Type dutasteride 0.5 mg capsule 0.5 mg PO QAM 07/20/19 01/21/24 History lisinopril 30 mg tablet 30 mg PO QAM 07/20/19 01/21/24 History omeprazole 40 mg capsule,delayed 40 mg PO QAM 07/20/19 01/21/24 History release oxybutynin chloride 5 mg tablet 5 mg PO BID 07/20/19 01/21/24 History simvastatin 40 mg tablet 40 mg PO HS 07/20/19 01/21/24 History terazosin 5 mg capsule 5 mg PO HS 07/20/19 01/21/24 History aspirin 81 mg tablet,delayed 81 mg PO DAILY 05/14/22 01/21/24 History release metoprolol succinate 25 mg 25 mg PO QAM 05/14/22 01/21/24 History tablet,extended release 24 hr Past Med/Surg History Medical History History of paroxysmal supraventricular tachycardia Encounter for pre-operative examination Ureterolithiasis Chronic back pain neck- cant turn side to side very well. up and down is ok BPH (benign prostatic hyperplasia) Diverticular disease has had in past GERD (gastroesophageal reflux disease) Hearing deficit Cardiac murmur doesnt follow with anyone DX As CHILD Hypertension Hyperlipidemia Surgical History History of ingrown nail LEFT FOOT WITH REPAIR History of deviated nasal septum with repair History of colonoscopy Hx of hernia repair Social History Smoking Status: Never smoker Cigarettes Per Day: 15; Second Hand Exposure: Yes; Do You Dip or Chew Tobacco: No; Hx Alcohol Use: Yes Alcohol type: beer and hard liquor Hx Substance Use: No Preferred Language: Djiboutian Communication Ability: Effective Medication Assistant Required: No Beliefs That Will Affect Care: None Current Living Situation: Alone Other Information That Helps Us Care for You: No Feels Safe at Home: Yes Safety Concerns: Feels Safe At This Time Assistive Devices: None Review of Systems Review of Systems: Neuro: (-) Falls, trauma, slurred speech HEENT: (-) DEXTER, dizziness, dysphagia, visual or auditory changes CV: (-) CP, palpitations, swelling Resp: (-) SOB GI: (-) appetite changes, N/V/D, bowel changes : (-) urinary changes Skin: (+) redness Psych: (-) anxiety, depression Physical Exam Physical Exam: Neuro: AAOx4, PERRLA, no aphagia, memory changes, CNII-XII grossly intact HEENT: head normocephalic, moist mucus membranes CV: S1/S2, (-) M/G/R, (-) edema, cap refill < 3 seconds Resp: Lungs CTA in all huber. On RA GI: Abdomen S/NT/ND, Ax4 bowel sounds, (-) CVA tenderness Musculoskeletal: 5/5 B/L UE strength, 5/5 B/L LE strength. No gait disturbance. Pt is able to do PROM with L hand and can move all digits. Skin: (+) erythema and swelling at the site with lymphangitis on the left dorsal forearm Psych: euthymic mood Results & Data Results & Data Vital Signs (Past 12 Hours) Vital Signs Temp Pulse Resp BP Pulse Ox O2 Del Method 01/21/24 09:33 36.7 C 100 H 15 149/90 H 99 Room Air Laboratory Results Short CBC 01/21/24 Range/Units 10:00 WBC 11.15 H (4.8-10.8) K/ul Hgb 11.3 L (14.0-18.0) g/dl Hct 33.2 L (42.0-52.0) % Plt Count 165 (130-400) K/uL BMP 01/21/24 10:00 Sodium 141 Potassium 3.7 Chloride 109 H Carbon Dioxide 26 BUN 15 Creatinine 0.80 Glucose 97 Calcium 9.4 Liver Function 01/21/24 Range/Units 10:00 Total Bilirubin 1.0 (0.2-1.0) mg/dl AST 22 (13-39) U/L ALT 13 (7-52) U/L Alkaline Phosphatase 51 (34-104) U/L Albumin 4.2 (3.4-5.0) gm/dl Diagnostic Findings Forearm X-Ray 01/21/24 09:59 XR forearm LT 2V CLINICAL HISTORY: cat bite dorsal distal forearm r/o fb. COMPARISON: None FINDINGS: No fractures within the left radius or ulna are identified. No bony erosions are present. There is an old nonunited fracture of the ulnar styloid. Left forearm soft tissue swelling is present. There are no radiopaque foreign bodies. No soft tissue gas is identified. 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 IMPRESSION: 1. Left forearm soft tissue swelling. No radiopaque foreign bodies. 2. No evidence for osteomyelitis within the left radius or ulna. ACT 112: Negative or not required by law. Electronically signed by: Antolin Mcneal M.D. 01/21/2024 11:11 AM Code Status & VTE Plan Code Status Full code in the event of cardiac respiratory arrest VTE Prophylaxis Plan VTE Prophylaxis will be ordered: Yes Supervising Physician Co-Signing Physician Notes I have seen and examined the patient and have discussed the case with the provider above. I have reviewed the advanced practitioner's documentation, and I agree with, and take responsibility for that plan of care. 78 yo M with cat bite on left wrist with secondary swelling and cellulitis. No LAD in left axilla. Very limited PROM in all planes of motion of left wrist. MCPs with some pain to palpation on the ulnar site-Left hand. Distal joints not involved. Received tetanus and RIG as noted above. Patient known to feeding stray cats and was bitten when he reached for the food bowl. Otherwise hemodynamically stable and exam as noted above. Labs/imaging reviewed. Agree with IV unasyn for now pending cultures and clinical improvement. Agree with ortho consultation. Would transition him to at least 14 days of augmentin at discharge with close followup with PCP. DO Praveen
[2024-01-21] MEDS: RABIES VACC (IMOVAX) HUMAN DIPL CELL 2.5 UNITS/ML SYR IM ONE (11:57)
[2024-01-21] MEDS: KETOROLAC TROMETHAMINE 15 MG/ML VIAL IV STA (14:26)
[2024-01-21] MEDS: AMPICILLIN/SULBACTAM SOD 3,000 MG in SODIUM CHLOR 0.9% MINI-B 100 ML IV SCH (17:08)
[2024-01-21] MEDS: oxyBUTYnin chloride 5 MG TAB PO SCH (20:57)
[2024-01-21] MEDS: SIMVASTATIN 40 MG TAB PO SCH (20:58)
[2024-01-21] MEDS: TERAZOSIN HCL 5 MG CAP PO SCH (20:58)
[2024-01-21] MEDS: KETOROLAC TROMETHAMINE 15 MG/ML VIAL IV PRN (21:20)
[2024-01-21] MEDS: ACETAMINOPHEN 325 MG TAB PO PRN (22:43)
--- OUTSIDE RECORDS SUMMARY | 2024-01-22 04:30 | External Medical Summary | Summary of Care ---
Author Name Unknown Organization [facility] Address [address] [place] [address] Phone [phone] Care Team Providers Care Sales Specialist Name Role Phone Shira Wood MD Primary Care Provider [phone]- [phone] Reason for Visit * Reason Comments Medication Refill Encounter Details Date Type Department Care Team (Late st Contact Info) Description 12/06/2023 Refill [facility] [address] [place] [address] Shira Wood MD [address] [place] [address] Allergies No known active allergiesdocumented as of this encounter (statuses as of 12/07/2023) Medications Medication Sig Dispensed Refills Start Date End Date Status Aspirin 81 MG Oral Tablet Delayed Release Take 1 Tablet by mouth in the morning. 0 Active Dutasteride 0.5 MG Oral Capsule (Avodart) Take 1 Capsule by mouth in the morning. 90 Capsule 3 11/26/2022 Active Simvastatin 40 MG Oral Tablet (Zocor) TAKE ONE TABLET BY MOUTH EVERY EVENING 90 Tablet 3 01/01/2023 02/05/2024 Active Metoprolol Succinate ER 25 MG Oral Tablet Extended Release 24 Hour (toPROL XL) TAKE ONE TABLET BY MOUTH IN THE MORNING 100 Tablet 3 12/30/2022 01/21/2024 Active Dutasteride 0.5 MG Oral Capsule (Avodart) TAKE ONE CAPSULE BY MOUTH EVERY MORNING 90 Capsule 3 12/04/2022 12/18/2023 Active oxyBUTYnin Chloride 5 MG Oral Tablet (Ditropan) TAKE TWO TABLETS BY MOUTH IN THE MORNING AND TAKE TWO TABLETS BY MOUTH BEFORE BEDTIME 360 Tablet 3 05/06/2023 05/05/2024 Active Omeprazole 40 MG Oral Capsule Delayed Release (PriLOSEC) TAKE ONE CAPSULE BY MOUTH EVERY DAY IN THE MORNING 90 Capsule 2 05/06/2023 Active Lisinopril 30 MG Oral Tablet Take 1 Tablet by mouth in the morning. 100 Tablet 2 08/04/2023 Active predniSONE 10 MG Oral Tablet (Deltasone)Indic ations:Rhinitis medicamentosa,Ch ronic rhinitis Take 5 tabs for 2 days, 4 tabs for 2 days, 3 tabs for 2 days, 2 tabs for 2 days 1 tab for 2 days 30 Tablet 0 11/28/2023 Active Fluticasone Propionate 50 MCG/ACT Nasal Suspension (Flonase)Indicat ions:Rhinitis medicamentosa,Ch ronic rhinitis Administer 1 [place] into each nostril in the morning and 1 [place] before bedtime. For 1st week, can do 2 spray each nostril twice a day, then down to 1 spray each nostril twice a day.. 1 Each 3 11/28/2023 Active Terazosin HCl 5 MG Oral Capsule (Hytrin) TAKE ONE CAPSULE BY MOUTH AT BEDTIME 90 Capsule 1 12/07/2023 12/06/2024 Active Terazosin HCl 5 MG Oral Capsule (Hytrin) TAKE ONE CAPSULE BY MOUTH AT BEDTIME 90 Capsule 1 04/27/2023 12/06/2023 Discontinue d(Refill) documented as of this encounter (statuses as of 12/07/2023) Active Problems Problem Noted Date Diagnosed Date Hyperlipidemia 02/15/2023 Unspecified inflammatory spondylopathy, 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 SVT (supraventricular tachycardia) 12/30/2022 PVC (premature ventricular contraction) 12/31/19 Essential hypertension with goal blood pressure less than 140/90 12/30/2022 Cigar smoker unmotivated to quit 05/20/2022 Marijuana smoker 05/20/2022 Alcohol ingestion, more than 4 drinks/day on alcohol screening 05/20/2022 S/P cystoscopy with ureteral stent placement Insomnia 12/18/2021 History of tobacco use 07/06/2011 Esophageal reflux 12/04/2010 Degeneration of cervical intervertebral disc 11/2010 CHRONIC RHINITIS (MEDICAMENTOSA) 11/12/2009 Subjective tinnitus 11/12/2009 Sensorineural hearing loss, bilateral 11/12/2009 CHR RIGHT MAXILLARY SINUSITIS 11/12/2009 Chronic otitis externa 11/12/2009 Bruxism, sleep-related 11/12/2009 documented as of this encounter (statuses as of 12/07/2023) Resolved Problems Problem Noted Date Diagnosed Date Resolved Date Heart palpitations 12/18/2021 Smell and taste disorder 01/26/2012 Headache 01/26/2012 02/15/2023 Overview: ICD-10 update of inactive term Dyspnea and respiratory abnormality 11/12/2009 02/15/2023 Overview: ICD-10 update of inactive term documented as of this encounter (statuses as of 12/07/2023) Social History Tobacco Use Types Packs/Day Years Used Date Smoking Tobacco: Former Cigars Smokeless Tobacco: Former Alcohol Use Standard Drinks/Week Comments Not Currently 0 (1 standard drink = 0.6 oz pur e alcohol) quit around 12/15/22 PHQ-2 Answer Date Recorded PHQ Adult Total Score 6 01/21/2023 Sex and Gender Information Value Date Recorded Sex Assigned at Male 03/06/2022 8:31 AM EDT Gender Identity Male 03/06/2022 8:31 AM EDT Sexual Orientation Straight 12/02/2021 11 :16 AM EST Job Start Date Occupation Industry Not on file Not on file Not on file documented as of this encounter Miscellaneous Notes * Telephone Encounter - Mercedes Mera [facility] - 12/07/2023 10:22 AM EST Signed Prescriptions: Disp Refills Terazosin HCl 5 MG Oral Capsule (Hytrin) 90 Cap*1 Sig: TAKE ONE CAPSULE BY MOUTH AT BEDTIME Authorizing Provider: SHIRA WOOD Ordering User: MERCEDES MERA * Telephone Encounter - Doris Cortez, deputy attorney general - 12/07/2023 8:48 AM EST Pending Prescriptions: Disp Refills Terazosin HCl 5 MG Oral Capsule (Hytrin) 90 Cap*1 Sig: TAKE ONE CAPSULE BY MOUTH AT BEDTIME * Telephone Encounter - Doris Cortez, deputy attorney general - 12/07/2023 8:47 AM EST Did you pend patient's preferred pharmacy and medication before forwarding?yes Pharmacy: [facility] Pending Prescriptions: Disp Refills Terazosin HCl 5 MG Oral Capsule (Hytrin) 90 Cap*1 Sig: TAKE ONE CAPSULE BY MOUTH AT BEDTIME Last Visit: 01/21/2023 (in office), Visit date not found (telemedicine) Next Visit: 01/24/2024 If no future appointments scheduled, and last appointment is greater than a year ago, please schedule patient for a follow-up appointment Last date the medication was ordered: 04/27/23 Is this request for a controlled substance?No Urine Drug Screen:No results found for this or any previous visit. Patient Phone Numbers Labs: Lab Results Component Value Date/Time CREAT 1.0 12/30/2022 11:03 AM CREAT 0.77 08/11/2021 12:00 AM CREAT 0.9 10/30/1999 12:15 PM POTASSIUM 4.6 12/30/2022 11:03 AM POTASSIUM 4.4 10/03/2002 04:34 PM LDLCALC 72 12/30/2022 11:03 AM LDLCALC 86 09/12/2002 08:09 AM ALT 15 12/30/2022 11:03 AM ALT 32 10/30/1999 12:15 PM documented in this encounter Plan of Treatment Upcoming Encounters Date Type Department Care Team (Late st Contact Info) Description 01/18/2024 8:30 AM EDT Office Visit Cardiology, [facility] [address] [place] [address] Fannie Estrella CRNP [address] [place] [address] 01/24/2024 8:20 AM EDT Office Visit [facility] [address] [place] [address] Shira Wood MD [address], [place] [id number] Health Maintenance Due Date Last Done Comments Albumin/Creatinine Ratio 1963 Hepatitis C Screening 1963 DTaP,Tdap,and Td Vaccines (1 - Tdap) 1963 Zoster Vaccines (1 of 2) 1994 Pneumococcal Vaccine: 65+ Years (2 of 2 - PCV) 07/18/2015 07/18/2014 COVID-19 Vaccine (1 - 2022- season) 2023 Influenza Vaccine (FLU shot) (#1) 2023 GFR 12/31/2023 12/30/2022, 03/0 10/2021, 08/11/2021, Additional history exists Depression Screening 01/22/2024 01/21/2023 GARDASIL-HPV IMMUNIZATION SERIES Aged Out No longer eligible based on patient's age to complete this topic Hepatitis B Aged Out No longer eligi ble based on patient's age to complete this topic MENINGOCOCCAL (MENACTRA/MENVEO) Aged Out No longer eligible based on patient's age to complete this topic documented as of this encounter Medical Devices Implanted Type Area Fish And Wildlife Technician Device Identifier Shelf Expiration Date Model / Serial / Lot Lens Intraoc 20.0 - [id number] - [id number] Implanted:Qty: 1 on 01/21/2021 by Chapito Contreras MD at OR [facility] Left: Eye [employer] 09/02/2025 [id number] / [id number] / [id number] Lens Intraoc 19.0 - [id number] - [id number] Implanted:Qty: 1 on 02/04/2021 by Chapito Contreras MD at OR [facility] Right: Eye [employer]OM[employer] 10/03/2025 [id number] / [id number] / [id number] documented as of this encounter Care Teams Sales Specialist Relationship Specialty Start Date End Date Shira Wood MD [address] [place] [facility] [place] [address] PCP - General Family Medicine 05/20/22 documented as of this encounter
--- OUTSIDE RECORDS SUMMARY | 2024-01-22 04:30 | External Medical Summary | Summary of Care ---
Author Name Unknown Organization [facility] Address [address] [place] [address] Phone [phone] Care Team Providers Care Car Ferrier Name Role Phone Shira Wood MD Primary Care Provider [phone]- [phone] Reason for Visit * Reason Comments Medication Refill Encounter Details Date Type Department Care Team (Late st Contact Info) Description 12/10/2023 Refill [facility] [address] [place] [address] Shira Wood MD [address] [place] [address] Allergies No known active allergiesdocumented as of this encounter (statuses as of 12/10/2023) Medications Medication Sig Dispensed Refills Start Date End Date Status Aspirin 81 MG Oral Tablet Delayed Release Take 1 Tablet by mouth in the morning. 0 Active Simvastatin 40 MG Oral Tablet (Zocor) TAKE ONE TABLET BY MOUTH EVERY EVENING 90 Tablet 3 01/01/2023 02/05/2024 Active Metoprolol Succinate ER 25 MG Oral Tablet Extended Release 24 Hour (toPROL XL) TAKE ONE TABLET BY MOUTH IN THE MORNING 100 Tablet 3 12/30/2022 01/21/2024 Active Metoprolol Succinate ER 25 MG Oral Tablet Extended Release 24 Hour (toPROL XL) TAKE ONE TABLET BY MOUTH IN THE MORNING 30 Tablet 5 04/14/2022 Active oxyBUTYnin Chloride 5 MG Oral Tablet [...] (Flonase)Indicat ions:Rhinitis medicamentosa,Ch ronic rhinitis Administer 1 [place] into each nostril in the morning and 1 [place] before bedtime. For 1st week, can do 2 spray each nostril twice a day, then down to 1 spray each nostril twice a day.. 1 Each 3 11/28/2023 Active Terazosin HCl 5 MG Oral Capsule (Hytrin) TAKE ONE CAPSULE BY MOUTH AT BEDTIME 90 Capsule 1 12/07/2023 12/06/2024 Active Dutasteride 0.5 MG Oral Capsule (Avodart) TAKE ONE CAPSULE BY MOUTH EVERY MORNING 90 Capsule 1 12/10/2023 12/09/2024 Active Dutasteride 0.5 MG Oral Capsule (Avodart) Take 1 Capsule by mouth in the morning. 90 Capsule 3 11/26/2022 12/10/2023 Discontinue d(Medicatio n List Clean Up) Dutasteride 0.5 MG Oral Capsule (Avodart) TAKE ONE CAPSULE BY MOUTH EVERY MORNING 90 Capsule 3 12/04/2022 12/10/2023 Discontinue d(Refill) documented as of this encounter (statuses as of 12/10/2023) Active Problems Problem Noted Date Diagnosed Date [...] as of this encounter (statuses as of 12/10/2023) Resolved Problems Problem Noted Date Diagnosed Date Resolved Date Heart palpitations 12/18/2021 Smell and taste disorder 01/26/2012 Headache 01/26/2012 02/15/2023 Overview: ICD-10 update of inactive term Dyspnea and respiratory abnormality 11/12/2009 02/15/2023 Overview: ICD-10 update of inactive term documented as of this encounter (statuses as of 12/10/2023) Social History Tobacco Use Types Packs/Day Years [...] encounter Miscellaneous Notes * Telephone Encounter - Francine Bhakta RPh - 12/10/2023 3:53 PM ESTSigned Prescriptions: Disp Refills Dutasteride 0.5 MG Oral Capsule (Avodart) 90 Cap*1 Sig: TAKE ONECAPSULE BY MOUTH EVERY MORNINGAuthorizing Provider: SHIRA WOOD User: DURA, FRANCINE-- documented in this encounter Plan of Treatment Upcoming Encounters Date Type Department Care Team (Late st Contact Info) Description 01/18/2024 8:30 AM EDT Office Visit Cardiology, [facility] [address] [place] [address] Fannie Estrella CRNP [address] [place] [address] 01/24/2024 8:20 AM EDT Office Visit [facility] [address] [place] [id number] Shira Wood MD [address] [place], [place] [id number] Health Maintenance Due Date Last Done Comments Albumin/Creatinine Ratio 1963 Hepatitis C Screening 1963 DTaP,Tdap,and Td Vaccines (1 - Tdap) 1963 Zoster Vaccines (1 of 2) 1994 Pneumococcal Vaccine: 65+ Years (2 of 2 - PCV) 07/18/2015 07/18/2014 COVID-19 Vaccine (1 - 2022-24 season) 2023 Influenza Vaccine (FLU shot) (#1) [...] this encounter Medical Devices Implanted Type Area Picker Tender Device Identifier Shelf Expiration Date Model / Serial / Lot Lens Intraoc 20.0 - [id number] - [id number] Implanted:Qty: 1 on 01/21/2021 by Chapito Contreras MD at OR [facility] Left: Eye [employer] 09/02/2025 [id number] / [id number] / [id number] Lens Intraoc 19.0 - [id number] - [id number] Implanted:Qty: 1 on 02/04/2021 by Chapito Contreras MD at OR [facility] Right: Eye [employer]OM[employer] 10/03/2025 [id number] / [id number] / [id number] documented as of this encounter Care Teams Car Ferrier Relationship Specialty Start Date End Date Shira Wood MD [address] [place] [address] PCP - General Family Medicine 05/20/22 documented as of this encounter
--- OUTSIDE RECORDS SUMMARY | 2024-01-22 04:30 | External Medical Summary | Summary of Care ---
Author Name Unknown Organization [facility] Address [address] [facility] [place] [address] Phone [phone] Care Team Providers Care Criminal Analyst Name Role Phone Paul Lyn MD Primary Care Provider +1- [phone] Reason for Visit * Reason Comments Follow Up Encounter Details Date Type Department Care Team (Late st Contact Info) Description 01/18/2024 8:30 AM EDT Office Visit Cardiology, [facility] [address] [place] [address] Fannie Estrella CRNP [address] [place] [address] SVT (supraventricular tachycardia) ([facility])*; Essential hypertension with goal blood pressure less than 140/90; Chronic rhinitis Allergies No known active allergiesdocumented as of this encounter (statuses as of 01/18/2024) Medications Medication Sig Dispensed Refills Start Date End Date Status Aspirin 81 MG Oral Tablet Delayed Release Take 1 Tablet by mouth in the morning. 0 Active Simvastatin 40 MG Oral Tablet (Zocor) TAKE ONE TABLET BY MOUTH EVERY EVENING 90 Tablet 3 3 02/05/20 24 Active oxyBUTYnin Chloride 5 MG Oral Tablet (Ditropan) TAKE TWO TABLETS BY MOUTH IN THE MORNING AND TAKE TWO TABLETS BY MOUTH BEFORE BEDTIME 360 Tablet 3 3 05/05/20 24 Active Omeprazole 40 MG Oral Capsule Delayed Release (PriLOSEC) TAKE ONE CAPSULE BY MOUTH EVERY DAY IN THE MORNING 90 Capsule 2 3 Active Terazosin HCl 5 MG Oral Capsule (Hytrin) TAKE ONE CAPSULE BY MOUTH AT BEDTIME 90 Capsule 1 4 12/07/19 25 Active Dutasteride 0.5 MG Oral Capsule (Avodart) TAKE ONE CAPSULE BY MOUTH EVERY MORNING 90 Capsule 1 4 12/10/19 25 Active Metoprolol Succinate ER 25 MG Oral Tablet Extended Release 24 Hour (toPROL XL)Indications:Es sential hypertension with goal blood pressure less than 140/90,PVC (premature ventricular contraction) TAKE ONE TABLET BY MOUTH IN THE MORNING 90 Tablet 3 4 01/13/20 25 Active Lisinopril 30 MG Oral TabletIndications :SVT (supraventricular tachycardia) (HCC),Essential hypertension with goal blood pressure less than 140/90 Take 1 Tablet by mouth in the morning. 100 Tablet 2 4 Active Fluticasone Propionate 50 MCG/ACT Nasal Suspension (Flonase)Indicati ons:Chronic rhinitis For 1st week, administer 2 sprays into each nostril twice a day, then down to 1 spray each nostril twice a day.. 16 g 3 4 Active Lisinopril 30 MG Oral Tablet Take 1 Tablet by mouth in the morning. 100 Tablet 2 3 01/18/20 24 Discontinued(Ref ill) predniSONE 10 MG Oral Tablet (Deltasone)Indica tions:Rhinitis medicamentosa,Chr onic rhinitis Take 5 tabs for 2 days, 4 tabs for 2 days, 3 tabs for 2 days, 2 tabs for 2 days 1 tab for 2 days 30 Tablet 0 4 01/18/20 24 Discontinued Fluticasone Propionate 50 MCG/ACT Nasal Suspension (Flonase)Indicati ons:Rhinitis medicamentosa,Chr onic rhinitis Administer 1 [place] into each nostril in the morning and 1 [place] before bedtime. For 1st week, can do 2 spray each nostril twice a day, then down to 1 spray each nostril twice a day.. 1 Each 3 4 01/18/20 24 Discontinued(Ref ill) documented as of this encounter (statuses as of 01/18/2024) Active Problems Problem Noted Date Diagnosed Date [...] as of this encounter (statuses as of 01/18/2024) Resolved Problems Problem Noted Date Diagnosed Date Resolved Date Heart palpitations 12/18/2021 Smell and taste disorder 01/26/2012 Headache 01/26/2012 02/15/2023 Overview: ICD-10 update of inactive term Dyspnea and respiratory abnormality 11/12/2009 02/15/2023 Overview: ICD-10 update of inactive term documented as of this encounter (statuses as of 01/18/2024) Social History Tobacco Use Types Packs/Day Years Used Date Smoking Tobacco: Former Cigars Smokeless Tobacco: Former Tobacco Cessation:Counseling Given: Not Answered Alcohol Use Standard Drinks/Week Comments Not Currently [...] on file documented as of this encounter Last Filed Vital Signs Vital Sign Reading Time Taken Comments Blood Pressure 140/86 01/18/2024 8:24 AM EDT Pulse 72 01/18/2024 8:24 AM EDT Temperature - - Respiratory Rate - - Oxygen Saturation 98% 01/18/2024 8:24 AM EDT Inhaled Oxygen Concentration - - Weight 70.8 kg (156 lb) 01/18/2024 8:24 AM EDT Height - - Body Mass Index 25.96 11/28/2023 8:13 AM EST documented in this encounter Progress Notes * Fannie Estrella CRNP - 01/18/2024 8:30 AM EDT 01/17/2024 Cardiology Follow Up Primary Medical Secretary Receptionist: RIGOBERTO; formerly Dr. Courtney Cardiac Problems: 1. SVT, controlled with metoprolol 2. PVC's 3. Hypertension 4. Dyslipidemia HPI: Vasyl Graham Jr. is a 78 year old male presents for routine cardiology follow up. Last seen in our office by Pierre Taylor PA-C 12/30/22 with complaints of palpitations; however, had beenout of his metoprolol for several months. Patient presents today feeling well from a cardiac perspective. Denies any chest pain, pressure, palpitations, no change in breathing since restarting his metoprolol. BP high end of target today, he reports that he has been out of his lisinopril for quite some time.Will need refilled. He has ongoing chronic runny nose and congestion. Was using Flonase which helped but ran out. He reports that he stopped smoking cigars, but does smoke marijuana Denies ETOH use Reports a large tea in the mornings. EKG obtained today demonstrates sinus arrhythmia with 1st degree AV block. Rate 68 Possible anterior infarct. No changes when compared with prior. Review of most recent echo demonstrates normal LVEF and no wall motion abnormality. Patient has remained asymptomatic. REVIEW OF SYSTEMS: See HPI for pertinent positives. All others negative other than those noted in the HPI. CONSTITUTIONAL: No change in weight, No weakness, No fatigue and No fevers, No sweats or chills. PULMONARY: No cough, sputum, or hemoptysis, No wheezing, No shortness or breath and No recent change in breathing. CARDIOVASCULAR: No chest pain, No dyspnea on exertion, No edema, No palpitations and No syncope. GASTROINTESTINAL: No abdominal pain, No change in bowel habits, No significant heartburn, No nausea, No vomiting, No diarrhea, No constipation, No blood in stools or black tarry stools. No dysphagia. HEMATOLOGIC: No abnormal bleeding and No bruising. NEUROLOGICAL: Normal balance, No headaches and No weakness. Review of patient's allergies indicates: No Known Allergies Current Outpatient Medications Medication Sig Dispense Refill Aspirin 81 MG Oral Tablet Delayed Release Take 1 Tablet by mouth in the morning. Simvastatin 40 MG Oral Tablet (Zocor) TAKE ONE TABLET BY MOUTH EVERY EVENING 90 Tablet 3 oxyBUTYnin Chloride 5 MG Oral Tablet (Ditropan) TAKE TWO TABLETS BY MOUTH IN THE MORNING AND TAKE TWO TABLETS BY MOUTH BEFORE BEDTIME 360 Tablet 3 Omeprazole 40 MG Oral Capsule Delayed Release (PriLOSEC) TAKE ONE CAPSULE BY MOUTH EVERY DAY IN THEMORNING 90 Capsule 2 Terazosin HCl 5 MG Oral Capsule (Hytrin) TAKE ONE CAPSULE BY MOUTH AT BEDTIME 90 Capsule 1 Dutasteride 0.5 MG Oral Capsule (Avodart) TAKE ONE CAPSULE BY MOUTH EVERY MORNING 90 Capsule 1 Metoprolol Succinate ER 25 MG Oral Tablet Extended Release 24 Hour (toPROL XL) TAKE ONE TABLET BY MOUTH IN THE MORNING 90 Tablet 3 Lisinopril 30 MG Oral Tablet Take 1 Tablet by mouth in the morning. 100 Tablet 2 Fluticasone Propionate 50 MCG/ACT Nasal Suspension (Flonase) For 1st week, administer 2 sprays intoeach nostril twice a day, then down to 1 spray each nostril twice a day.. 16 g 3 No current facility-administered medications for this visit. Past Medical History: Diagnosis Date Diverticulitis of colon 09/02/02 Family History Problem Relation Age of Onset Hypertension Mother Stroke Mother Other (Other) Father AAA Neurological Disorder Grandfather (Maternal) Alzheimers Social History Socioeconomic History Marital status: Tobacco Use Smoking status: Former Types: Cigars Smokeless tobacco: Former Vaping Use Vaping Use: Never used Substance and Sexual Activity Alcohol use: Not Currently Comment: quit around 12/15/22 Drug use: Yes Frequency: 14.0 times per week Types: Marijuana Comment: 2-3 times daily Sexual activity: Yes Comment: Protection once in awhile OBJECTIVE/PHYSICAL EXAMINATION: BP 140/86 | Pulse 72 | Wt 70.8 kg (156 lb) | SpO2 98% | BMI 25.96 kg/m | BSA 1.8 m General: No acute distress. A+Ox3. HEENT: Normocephalic. Atraumatic. PERRL. EOMI. Conjunctiva and sclera clear. NECK: No carotid bruits. No JVD. Carotid upstrokes are brisk. Heart: RRR. S1 and S2 noted. No murmur. No rubs or gallops. PMI non displaced. Lungs: Clear to auscultation. No wheezes.No rhonchi. No rales. Abdomen: Normal bowel sounds. Soft. Nontender. No masses or organomegaly. No abdominal bruits. Extremities: No edema. No clubbing or cyanosis. Pulses: radial=2/4, posterior tibial=2/4, dorsalis pedis = 2/4. NEURO: No focal deficits. PSYCH: Appropriate affect and insight. DATA Labs & Imaging Reviewed Below: EKG 12/30/22 Sinus rhythm with sinus arrhythmia with occasional Premature ventricular complexes Otherwise normal ECG When compared with ECG of 18-DEC-2021 06:47, No significant change was found Ventricular Rate: 72 Echocardiogram report reviewed dated February 2022: Interpretation Summary The examination is adequate to evaluate the referral indication. The qualitative LV ejection fraction is 60-64% (normal). The LV wall thickness is mildly increased (concentric). The left ventricular diastolic function is mildly abnormal (grade I). Moderate aortic valve sclerosis is present. Mild tricuspid regurgitation is present. There is no evidence of pulmonary hypertension. The proximal ascending thoracic aorta is mildly enlarged ASSESSMENT/PLAN: 78 year old year old male 1. SVT (supraventricular tachycardia) (HCC) -Continue Toprol xl - EKG 2. Essential hypertension with goal blood pressure less than 140/90 -High end of target. -Continue Toprol xl, and Terazosin, Restart Lisinopril (ran out) - Lisinopril 30 MG Oral Tablet; Take 1 Tablet by mouth in the morning. Dispense: 100 Tablet; Refill: 2 - EKG 3. Chronic rhinitis - Fluticasone Propionate 50 MCG/ACT Nasal Suspension (Flonase); For 1st week, administer 2 sprays into each nostril twice a day, then down to 1 spray each nostril twice a day.. Dispense: 16 g; Refill: 3 DISPOSITION: Follow up 1 year or if symptoms worsen/fail to improve. All questions were answered to the patients satisfaction. Patient advised to report to ED with any and all emergencies. The patient agrees to the above plan and will call with additional questions or concerns. [facility], [address] [place] [address] I spent a total of 30 minutes on the date of service in preparation, delivery, and documentation ofthe care provided to Vasyl Graham Jr. excluding any time spent in the performance of separately billed services. This chart was completed in part utilizing [employer] Speech Voice Recognition Software. Grammatical errors, random word insertions, pronoun errors, and incomplete sentences are an occasional consequence of this system due to software limitations, ambient noise, and hardware issues. Any formal questions or concerns about the content, text, or information contained within the body of this dictation should be directly addressed to the provider for clarification. documented in this encounter Nursing Notes * Mandy Cameron CMA - 01/18/2024 8:24 AM EDT Examination Room: 4 Name: Vasyl Graham Jr. Date of : (1945) Reason for Visit: 6m Interim Hospitalization(s): none Problems/Concerns: denied Chest Pain/SOB: denied My [facility] is a way you can talk to your provider online through e-mail. Would you like to sign up? I can activate it for you? ALREADY ACTIVE Patient was instructed to not get up on the exam table until directed and assisted by their provider; patient is to remain seated in the chair/ wheelchair/ exam table for fall prevention and safety reasons. Patient is aware to have assistance to step down off exam table with personnel. Patient voiced full comprehension of instructions. documented in this encounter Plan of Treatment Upcoming Encounters Date Type Department Care Team (Late st Contact Info) Description 01/24/2024 8:20 AM EDT Office Visit [place] [address] [facility] [place] [address] Paul Lyn MD [address] [place] [address] Scheduled Orders Name Type Priority Associated Diagnoses Orde r Schedule EKG EKG Routine SVT (supraventricular tachycardia) (HCC) Essential hypertension with goal blood pressure less than 140/90 Ordered: 01/18/2024 Health Maintenance Due Date Last Done Comments Albumin/Creatinine Ratio 1963 Hepatitis C Screening 1963 DTaP,Tdap,and Td Vaccines (1 - Tdap) 1963 Zoster Vaccines (1 of 2) 1994 Pneumococcal Vaccine: 65+ Years (2 of 2 - PCV) 07/18/2015 07/18/2014 COVID-19 Vaccine (1 - 2022- season) 2023 GFR 12/31/2023 12/30/2022, 03/0 10/2021, 08/11/2021, Additional history exists Depression Screening 01/22/2024 01/21/2023 Influenza Vaccine (FLU shot) (Season Ended) 2024 GARDASIL-HPV IMMUNIZATION SERIES Aged Out No longer eligible based on patient's age to complete this topic Hepatitis B Aged Out No longer eligi ble based on patient's age to complete this topic MENINGOCOCCAL (MENACTRA/MENVEO) Aged Out No longer eligible based on patient's age to complete this topic documented as of this encounter Medical Devices Implanted Type Area Mechanic General Operational Test Device Identifier Shelf Expiration Date Model / Serial / Lot Lens Intraoc 20.0 - [id number] - [id number] Implanted:Qty: 1 on 01/21/2021 by Chapito Contreras MD at OR [facility] Left: Eye [employer] 09/02/2025 [id number] / [id number] / [id number] Lens Intraoc 19.0 - [id number] - [id number] Implanted:Qty: 1 on 02/04/2021 by Chapito Contreras MD at OR [facility] Right: Eye [employer] 10/03/2025 [id number] / [id number] / [id number] documented as of this encounter Visit Diagnoses Diagnosis SVT (supraventricular tachycardia) (HCC)- Primary Other specified cardiac dysrhythmias Essential hypertension with goal blood pressure less than 140/90 Chronic rhinitis documented in this encounter Care Teams Criminal Analyst Relationship Specialty Start Date End Date Paul Lyn MD [address] [place] [address] PCP - General Family Medicine 05/20/22 documented as of this encounter"
--- OUTSIDE RECORDS SUMMARY | 2024-01-22 04:30 | External Medical Summary | Summary of Care ---
Author Name Unknown Organization [facility] Address [address] [place] [address] Phone [phone] Care Team Providers Care Lye Peel Operator Name Role Phone Paul Lyn MD Primary Care Provider +1- [phone] Reason for Visit * Reason Onset Date Comments Health Maintenance 12/06/2023 Encounter Details Date Type Department Care Team (Late st Contact Info) Description 12/06/[address] [facility] [address] [place] [address] Paul Lyn MD [address] [place] [address] Health Maintenance Allergies No known active allergiesdocumented as of this encounter (statuses as of 12/06/2023) Medications Medication Sig Dispensed Refills Start Date [...] MORNING 90 Capsule 3 12/04/2022 12/18/2023 Active Metoprolol Succinate ER 25 MG Oral Tablet Extended Release 24 Hour (toPROL XL) TAKE ONE TABLET BY MOUTH IN THE MORNING 30 Tablet 5 04/14/2022 Active Terazosin HCl 5 MG Oral Capsule (Hytrin) TAKE ONE CAPSULE BY MOUTH AT BEDTIME 90 Capsule 1 04/27/2023 04/26/2024 Active oxyBUTYnin Chloride 5 MG Oral Tablet [...] 08/04/2023 Active predniSONE 10 MG Oral Tablet (Deltasone)Indicat ions:Rhinitis medicamentosa,T[employer] alyse rhinitis Take 5 tabs for 2 days, 4 tabs for 2 days, 3 tabs for 2 days, 2 tabs for 2 days 1 tab for 2 days 30 Tablet 0 11/28/2023 Active Fluticasone Propionate 50 MCG/ACT Nasal Suspension (Flonase)Indicatio ns:Rhinitis medicamentosa,Tester [employer] alyse rhinitis Administer 1 [place] into each nostril in the morning and 1 [place] before bedtime. For 1st week, can do 2 spray each nostril twice a day, then down to 1 spray each nostril twice a day.. 1 Each 3 11/28/2023 Active documented as of this encounter (statuses as of 12/06/2023) Active Problems Problem Noted Date Diagnosed Date [...] as of this encounter (statuses as of 12/06/2023) Resolved Problems Problem Noted Date Diagnosed Date Resolved Date Heart palpitations 12/18/2021 Smell and taste disorder 01/26/2012 Headache 01/26/2012 02/15/2023 Overview: ICD-10 update of inactive term Dyspnea and respiratory abnormality 11/12/2009 02/15/2023 Overview: ICD-10 update of inactive term documented as of this encounter (statuses as of 12/06/2023) Social History Tobacco Use Types Packs/Day Years [...] encounter Miscellaneous Notes * Telephone Encounter - Christi Souza LEWIS - 12/06/2023 9:25 AM EST Care Gaps Comprehensive Care Outreach Last Office/Telemedicine Visit: 01/21/2023 (in office), Visit date not found (telemedicine) Next Office Visit: 01/24/2024 Hemoglobin AIC Results: No results found for: "HEMOGLOBIN A1C" BP Readings from Last 1 Encounters: 11/28/23 148/86 Reviewed Health Maintenance below: Health Maintenance Topic Date Due Albumin/Creatinine Ratio Never done Hepatitis C Screening Never done DTaP,Tdap,and Td Vaccines (1 - Tdap) Never done Zoster Vaccines (1 of 2) Never done Pneumococcal Vaccine: 65+ Years (2 of 2 - PCV) 07/18/2015 Urine awv Care Gap Outreach Action Taken: Left message documented in this encounter Plan of Treatment Upcoming Encounters Date Type Department Care Team (Late st Contact Info) Description 01/18/2024 8:30 AM EDT Office Visit Cardiology, [facility] [address] [facility] [place] [address] Fannie Estrella CRNP [address] [place] [address] 01/24/2024 8:20 AM EDT Office Visit [facility] [address] [place] [id number] Paul Lyn MD [address], [place] [id number] Health Maintenance Due Date Last Done Comments Albumin/Creatinine Ratio 1963 Hepatitis C Screening 1962 DTaP,Tdap,and Td Vaccines (1 - Tdap) 1963 Zoster Vaccines (1 of 2) 1994 Pneumococcal Vaccine: 65+ Years (2 of 2 - PCV) 07/18/2015 07/18/2014 COVID-19 Vaccine ( - 2022-24 season) 2023 Influenza Vaccine (FLU [...] this encounter Medical Devices Implanted Type Area Senior Manufacturing Technician Device Identifier Shelf Expiration Date Model / Serial / Lot Lens Intraoc 20.0 - [id number] - [id number] Implanted:Qty: 1 on 01/21/2021 by Chapito Contreras MD at OR [facility] Left: Eye [employer] 09/02/2025 [id number] / [id number] / [id number] Lens Intraoc 19.0 - [id number] - [id number] Implanted:Qty: 1 on 02/04/2021 by Chapito Contreras MD at OR [facility] Right: Eye [employer] 10/03/2025 [id number] / [id number] / [id number] documented as of this encounter Care Teams Lye Peel Operator Relationship Specialty Start Date End Date Paul Lyn MD [address] [place] [address] PCP - General Family Medicine 05/20/22 documented as of this encounter
--- OUTSIDE RECORDS SUMMARY | 2024-01-22 04:30 | External Medical Summary | Summary of Care ---
Author Name Unknown Organization [facility] Address [address] [place] [address] Phone [phone] Care Team Providers Care Repairer Engine Production Name Role Phone Paul Lyn MD Primary Care Provider [phone]- [phone] Reason for Visit * Reason Onset Date Comments MyCode Consent 08/04/2023 Encounter Details Date Type Department Care Team (Late st Contact Info) Description 08/04/2023 Orders Only Outcomes Research Department [address], [place] [id number] Paty Salmeron CHRA MyCode Research Other*[id number]* Allergies No known active allergiesdocumented as of this encounter (statuses as of 08/04/2023) Medications Medication Sig Dispensed Refills Start Date End Date Status Aspirin 81 MG Oral Tablet Delayed Release Take 1 Tablet by mouth in the morning. 0 Active Dutasteride 0.5 MG Oral Capsule (Avodart) Take 1 Capsule by mouth in the morning. 90 Capsule 3 11/26/2022 Active Lisinopril 30 MG Oral Tablet Take 1 Tablet by mouth in the morning. 90 Tablet 0 12/22/2022 Active Fluticasone Propionate 50 MCG/ACT Nasal Suspension (Flonase)Indicatio ns:Acute viral sinusitis Administer 2 Sprays into each nostril in the morning. 1 Each 0 03/05/2023 Active predniSONE 10 MG Oral Tablet (Deltasone)Indicat ions:Acute viral sinusitis Take 5 tabs for 2 days, 4 tabs for 2 days, 3 tabs for 2 days, 2 tabs for 2 days 1 tab for 2 days 30 Tablet 0 03/05/2023 Active Simvastatin 40 MG Oral Tablet (Zocor) TAKE ONE TABLET BY MOUTH EVERY EVENING 90 Tablet 3 01/01/2023 01/01/2024 Active Metoprolol Succinate ER 25 MG Oral Tablet Extended Release 24 Hour (toPROL XL) TAKE ONE TABLET BY MOUTH IN THE MORNING 100 Tablet 3 12/30/2022 12/30/2023 Active Lisinopril 30 MG Oral Tablet TAKE ONE TABLET BY MOUTH EVERY MORNING 90 Tablet 0 12/22/2022 12/22/2023 Active Dutasteride 0.5 MG Oral Capsule (Avodart) TAKE ONE CAPSULE BY MOUTH EVERY MORNING 90 Capsule 3 12/04/2022 12/04/2023 Active Metoprolol Succinate ER 25 MG Oral Tablet Extended Release 24 Hour (toPROL XL) TAKE ONE TABLET BY MOUTH IN THE MORNING 30 Tablet 5 04/14/2022 Active Terazosin HCl 5 MG Oral Capsule (Hytrin) TAKE ONE CAPSULE BY MOUTH AT BEDTIME 90 Capsule 1 04/27/2023 04/26/2024 Active Oxybutynin Chloride 5 MG Oral Tablet (Ditropan) TAKE TWO TABLETS BY MOUTH IN THE MORNING AND TAKE TWO TABLETS BY MOUTH BEFORE BEDTIME 360 Tablet 3 05/06/2023 05/05/2024 Active Omeprazole 40 MG Oral Capsule Delayed Release (PriLOSEC) TAKE ONE CAPSULE BY MOUTH EVERY DAY IN THE MORNING 90 Capsule 2 05/06/2023 Active documented as of this encounter (statuses as of 08/04/2023) Active Problems Problem Noted Date Diagnosed Date Hyperlipidemia 02/15/2023 Unspecified inflammatory spondylopathy, 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 SVT (supraventricular tachycardia) 12/30/2022 PVC (premature ventricular contraction) 12/31/19 23 Essential hypertension with goal blood pressure less [...] as of this encounter (statuses as of 08/04/2023) Resolved Problems Problem Noted Date Diagnosed Date Resolved Date Heart palpitations 12/18/2021 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 provided consent/authorization to participate in the [employer]. documented in this encounter Plan of Treatment Upcoming Encounters Date Type Department Care Team ([facility] st Contact Info) Description 08/04/2023 9:20 AM EDT Office Visit [address] [phone] Trang Cabello MD [address] [place] [phone] Risk and functional assessment* 09/08/2023 8:00 AM EST Office Visit Cardiology, [facility] [address] [place] [address] Fannie Estrella CRNP [address] [place] [address] 01/24/2024 8:20 AM EDT Office Visit [facility] [address] [place] [phone] Paul Lyn MD [address], [place] [phone] Scheduled Orders Name Type Priority Associated Diagnoses Orde r Schedule MYCODE INITIAL ADULT Lab Routine MyCode Research Other*[id number] Expected: 08/04/2023 (Approximate), Expires: 08/23/2024 Health Maintenance Due Date Last Done Comments COVID-19 Vaccine (#1) 05/25/1946 Pneumococcal Vaccine: 65+ Years (1 - PCV) 1950 Albumin/Creatinine Ratio 1962 Hepatitis C Screening 1962 DTaP,Tdap,and Td Vaccines (1 - Tdap) 1963 Zoster Vaccines (1 of 2) 1994 Influenza Vaccine (FLU shot) (#1) 2023 GFR [...] this encounter Medical Devices Implanted Type Area Motion Picture Scene Builder Device Identifier Shelf Expiration Date Model / Serial / Lot Lens Intraoc 20.0 - [id number] - [id number] Implanted:Qty: 1 on 01/21/2021 by Chapito Contreras MD at OR [facility] Left: Eye [employer] 09/02/2025 [id number] / [id number] / [id number] Lens Intraoc 19.0 - [id number] - [id number] Implanted:Qty: 1 on 02/04/2021 by Chapito Contreras MD at OR [facility] Right: Eye [employer]OM[employer] 10/03/2025 [id number] / [id number] / [id number] documented as of this encounter Visit Diagnoses Diagnosis Risk and functional assessment- Primary Screening for unspecified condition MyCode Research Other*[id number]- Primary documented in this encounter Care Teams Repairer Engine Production Relationship Specialty Start Date End Date Paul Lyn MD [address] [place] [address] PCP - General Family Medicine 05/20/22 documented as of this encounter
--- OUTSIDE RECORDS SUMMARY | 2024-01-22 04:30 | External Medical Summary | Summary of Care ---
Author Name Unknown Organization [facility] Address [address] [place] [address] Phone [phone] Care Team Providers Care Command And Control Officer Name Role Phone Shira Wood MD Primary Care Provider [phone]- [phone] Reason for Visit * Reason Onset Date Comments Medication Refill 12/21/2022 Encounter Details Date Type Department Care Team (Late st Contact Info) Description 12/21/2022 Refill [facility] [address] [place] [address] Shira Wood MD [address] [place] [address] Encounter for long-term (current) use of other medications*; Dyslipidemia, goal LDL below 100 Allergies No known active allergiesdocumented as of this encounter (statuses as of 07/31/2023) Medications Medication Sig Dispensed Refills Start Date [...] the morning. 90 Tablet 0 12/22/2022 Active Meclizine HCl 25 MG Oral Tablet (Antivert) Take 1 Tablet by mouth as needed for Dizziness. 0 12/31/19 23 Discontinued(Ref ill) Naproxen Sodium 220 MG Oral Tablet Take 1 Tablet by mouth 2 times a day with morning and evening meals. 0 08/11/2021 01/22/20 23 Discontinued(Med ication/Dose Changed) Simvastatin 40 MG Oral Tablet (Zocor) TAKE ONE TABLET BY MOUTH IN THE EVENING 90 Tablet 3 02/24/2022 01/01/20 23 Discontinued(Ref ill) Metoprolol Succinate ER 25 MG Oral Tablet Extended Release 24 Hour (toPROL XL) Take by mouth 1 Tablet in the morning. 30 Tablet 5 04/14/2022 12/31/19 23 Discontinued(Ref ill) Omeprazole 40 MG Oral Capsule Delayed Release (PriLOSEC) Take by mouth 1 Capsule in the morning. 90 Capsule 3 06/18/2022 06/18/20 22 Discontinued(Leg acy prescription brought in as discontinued) Oxybutynin Chloride 5 MG Oral Tablet (Ditropan) Take by mouth 2 Tablets in the morning AND 2 Tablets before bedtime. 360 Tablet 3 06/18/2022 06/18/20 22 Discontinued(Leg acy prescription brought in as discontinued) Terazosin HCl 5 MG Oral Capsule Take by mouth 1 Capsule before bedtime. 90 Capsule 3 06/18/2022 06/18/20 22 Discontinued(Leg acy prescription brought in as discontinued) Lisinopril 30 MG Oral Tablet Take by mouth 1 Tablet in the morning. 90 Tablet 1 07/04/2022 12/22/19 23 Discontinued(Ref ill) Sildenafil Citrate 25 MG Oral TabletIndications :SVT (supraventricular tachycardia),Esse ntial hypertension with goal blood pressure less than 140/90 Take 1 Tablet by mouth as needed for Erectile Dysfunction. 10 Tablet 3 11/26/2022 01/22/20 23 Discontinued(Med ication/Dose Changed) documented as of this encounter (statuses as of 07/31/2023) Active Problems Problem Noted Date Diagnosed Date [...] as of this encounter (statuses as of 07/31/2023) Resolved Problems Problem Noted Date Diagnosed Date Resolved Date Heart palpitations 12/18/2021 3 Smell and taste disorder 01/26/2012 Headache 01/26/2012 02/15/2023 Overview: ICD-10 update of inactive term Dyspnea and respiratory abnormality 11/12/2009 02/15/2023 Overview: ICD-10 update of inactive term documented as of this encounter (statuses as of 07/31/2023) Social History Tobacco Use Types Packs/Day Years Used Date Smoking Tobacco: Every Day Cigars Smokeless Tobacco: Former Comments:2-4 cigarettes per day Alcohol Use Standard Drinks/Week Comments Not Asked 0 (1 standard drink = 0.6 oz pure alcohol) As of 2.17.2006, the last noted alcohol intake was 14 ounces. PHQ-2 Answer Date Recorded PHQ Adult Total [...] encounter Miscellaneous Notes * Telephone Encounter - Sherie Beyer CPhT - 07/31/2023 10:27 AM EDT Received message from [facility] regarding patient needing labs. Placed call to patient to advise. Pt had ordered labs completed on 12/30/22; no follow-up is needed. Thank you, Naomi Beyer Wildlife And Game Protector [facility] (Formerly [facility]) 07/31/2023,10:27 AM * Telephone Encounter - Edda Chavira RPh - 12/22/2022 2:12 PM EDTSigned Prescriptions: Disp Refills Lisinopril 30 MG Oral Tablet 90 Tab*0 Sig: Take 1 Tablet by mouth in the morning. Authorizing Provider: SHIRA WOOD Ordering User: EDDA CHAVIRA * Telephone Encounter - Edda Chavira RPh - 12/22/2022 2:10 PM EDT Provided 90 days supply with 0 refill(s). Per refill protocol patient should have cmp, lipid panel,psa on file within past year. Reviewed AMP report, Care Gaps/Health Maintenance, medications list, and for any routine labs typically ordered for this patient. Lab orders placed. Please contact patient to advise of labs ordered for blood draw. Fasting is not required. Advise toobtain labs before requesting the next refill. Thank you, Edda Chavira, PharmD Clinical Pharmacist [facility] [phone] 12/22/2022, 2:10 PM * Telephone Encounter - Alva Steen - 12/21/2022 3:30 PM EDT Did you pend patient's preferred pharmacy and medication before forwarding?yes [facility] Pending Prescriptions: Disp Refills Lisinopril 30 MG Oral Tablet 90 Tab*1 Sig: Take 1 Tablet by mouth in the morning. Last Visit: 05/20/2022 (in office), Visit date not found (telemedicine) Next Visit: 01/21/2023 If no future appointments scheduled, and last appointment is greater than a year ago, please schedule patient for a follow-up appointment Last date the medication was ordered: 07/04/22 Is this request for a controlled substance?No Urine Drug Screen:No results found for this or any previous visit. Patient Phone Numbers Labs: Lab Results Component Value Date/Time CREAT 0.9 12/02/2021 12:01 PM CREAT 0.77 08/11/2021 12:00 AM CREAT 0.9 10/30/1999 12:15 PM POTASSIUM 4.4 12/02/2021 12:01 PM POTASSIUM 4.4 10/03/2002 04:34 PM LDLCALC 74 12/02/2021 12:01 PM LDLCALC 86 09/12/2002 08:09 AM ALT 15 12/02/2021 12:01 PM ALT 32 10/30/1999 12:15 PM documented in this encounter Plan of Treatment Upcoming Encounters Date Type Department Care Team (Late st Contact Info) Description 09/08/2023 8:00 AM EST [facility] [address] [place] [address] Fannie Estrella CRNP [address] [place] [address] 01/24/2024 8:20 AM EDT Office Visit [facility] [address] [place] [facility] [place] [phone] Shira Wood MD [address] [place] [phone] Health Maintenance Due Date Last Done Comments [...] this encounter Medical Devices Implanted Type Area Organisation And Methods Analyst Device Identifier Shelf Expiration Date Model / Serial / Lot Lens Intraoc 20.0 - [id number] - [id number] Implanted:Qty: 1 on 01/21/2021 by Chapito Contreras MD at OR [facility] Left: Eye [employer] 09/02/2025 [id number] / [id number] / [id number] Lens Intraoc 19.0 - [id number] - [id number] Implanted:Qty: 1 on 02/04/2021 by Chapito Contreras MD at OR [facility] Right: Eye [employer]OM[employer] 10/03/2025 [id number] / [id number] / [id number] documented as of this encounter Results * COMPREHENSIVE METABOLIC PANEL (12/30/2022 11:03 AM EDT) BUN 19 6 - 20 mg/dL 12/30/2022 12:56 PM EDT [facility] 57[facility]10 Creatinine 1.0 0.6 - 1.2 mg/dL 12/30/2022 12:56 PM EDT [facility] 57-10 Estimated Glomerular Filtration Rate 80 >=60 mL/min 12/30/2022 12:56 PM EDT [facility] 57-10 Comment:eGFR is calculated b ased on the CKD-EPI 2020 equation Sodium 143 135 - 146 mmol/L 12/30/2022 12:56 PM EDT [facility]10 Potassium 4.6 3.5 - 5.1 mmol/L 12/30/2022 12:56 PM EDT [facility] 57-10 Chloride 105 98 - 107 mmol/L 12/30/2022 12:56 PM EDT [facility] 57-10 CO2 26 22 - 32 mmol/L 12/30/2022 12:56 PM EDT [facility]10 Anion Gap 12 7 - 15 mmol/L 12/30/2022 12:56 PM EDT [facility] 57-10 Glucose 95 70 - 120 mg/dL 12/30/2022 12:56 PM EDT [facility]10 Albumin 4.4 3.8 - 5.0 g/dL 12/30/2022 12:56 PM EDT [facility] 57-10 AST 19 10 - 50 U/L 12/30/2022 12:56 PM EDT [facility]10 Alkaline Phosphatase 58 35 - 130 U/L 12/30/2022 12:56 PM EDT [facility] 57-10 Bilirubin, Total 0.8 <=1.2 mg/dL 12/30/2022 12:56 PM EDT [facility] 57-10 Calcium 9.6 8.4 - 10.2 mg/dL 12/30/2022 12:56 PM EDT [facility] 57[facility]10 Protein 6.6 6.0 - 8.3 g/dL 12/30/2022 12:56 PM EDT [facility] 57[facility]10 ALT 15 10 - 50 U/L 12/30/2022 12:56 PM EDT [facility] 57[facility]10 Blood Venous blood specimen / Unknown Venipuncture / Unknown 12/30/2022 11:03 AM EDT 12/30/2022 11:03 AM EDT Edda Chavira [facility] LAB BLOOD ORDERABL ES [facility] 57-10 [address] [place] [address] * LIPID PANEL WITH DIRECT LDL IF TG IS HIGH (12/30/2022 11:03 AM EDT) Triglycerides 53 <=174 mg/dL 12/30/2022 8:37 PM EDT [facility] Comment: Triglyceride Reference Ranges (mg/dL): <150 Acceptable 150-174 Borderline high 175-499 High >=500 Very high Cholesterol 149 <200 mg/dL 12/30/2022 8:37 PM EDT [facility] Comment: Total Cholesterol Reference Ranges (mg/dL): <200 Desirable 200-239 Borderline high >=240 High HDL Cholesterol 66 >39 mg/dL 8:37 PM EDT [facility] Comment: HDL Cholesterol Reference Ranges (mg/dL): >=60 High (Desirable) <50 Low (Undesirable) For Females <40 Low (Undesirable) For Males Non-HDL Cholesterol 83 <=159 mg/dL 12/30/2022 8:37 PM EDT [facility] Comment: Non-HDL Cholesterol Reference Range (mg/dL): <100 Target level for high risk ASCVD patient <130 Optimal for general population 130-159 Near optimal for general population 160-189 Borderline High 190-219 High >=220 Very High LDL Cholesterol 72 <=129 mg/dL 12/30/2022 8:37 PM EDT [facility] Comment: LDL Cholesterol Reference Ranges (mg/dL): <70 Target level for high risk ASCVD patient <100 Optimal for general population 100-129 Near optimal for general population 130-159 Borderline high 160-189 High >=190 Very high Blood Venous blood specimen / Unknown Venipuncture / Unknown 12/30/2022 11:03 AM EDT 12/30/2022 11:03 AM EDT Edda Chavira [facility] LAB BLOOD ORDERABL ES [facility] [address] [place] [address] documented in this encounter Visit Diagnoses Diagnosis Encounter for long-term (current) use of other medications- Primary Dyslipidemia, goal LDL below 100 Other and unspecified hyperlipidemia documented in this encounter Care Teams Command And Control Officer Relationship Specialty Start Date End Date Shira Wood MD [address] [place] [address] PCP - General Family Medicine 05/20/22 documented as of this encounter
--- OUTSIDE RECORDS SUMMARY | 2024-01-22 04:30 | External Medical Summary | Summary of Care ---
Author Name Unknown Organization [facility] Address [address] [place] [address] Phone [phone] Care Team Providers Care Production Stage Manager Name Role Phone Paul Lyn MD Primary Care Provider [phone]- [phone] Reason for Visit * Reason Onset Date Comments Congestion Pt here for comp laints of nasal congestion for over a year.Pt states that he has been seen for this several times but is not getting better Cold Symptoms 11/28/2023 Encounter Details Date Type Department Care Team (Latest Contact Info) Description 11/28/2023 8:20 AM EST Convenient Care Visit [facility] [address] [place] [address] Royal Lopez PA-C [facility] [place] [id number] Rhinitis medicamentosa*; Chronic rhinitis Allergies No known active allergiesdocumented as of this encounter (statuses as of 11/28/2023) Medications Medication Sig Dispensed Refills Start Date End Date Status Aspirin 81 MG Oral Tablet Delayed Release Take 1 Tablet by mouth in the morning. 0 Active Dutasteride 0.5 MG Oral Capsule (Avodart) Take 1 Capsule by mouth in the morning. 90 Capsule 3 11/26/2022 Active Simvastatin 40 MG Oral Tablet (Zocor) TAKE ONE TABLET BY MOUTH EVERY EVENING 90 Tablet 3 01/01/2023 02/05/20 24 Active Metoprolol Succinate ER 25 MG Oral Tablet Extended Release 24 Hour (toPROL XL) TAKE ONE TABLET BY MOUTH IN THE MORNING 100 Tablet 3 12/30/2022 01/21/20 24 Active Dutasteride 0.5 MG Oral Capsule (Avodart) TAKE ONE CAPSULE BY MOUTH EVERY MORNING 90 Capsule 3 12/04/2022 12/18/19 24 Active Metoprolol Succinate ER 25 MG Oral Tablet Extended Release 24 Hour (toPROL XL) TAKE ONE TABLET BY MOUTH IN THE MORNING 30 Tablet 5 04/14/2022 Active Terazosin HCl 5 MG Oral Capsule (Hytrin) TAKE ONE CAPSULE BY MOUTH AT BEDTIME 90 Capsule 1 04/27/2023 04/26/20 24 Active oxyBUTYnin Chloride 5 MG Oral Tablet (Ditropan) TAKE TWO TABLETS BY MOUTH IN THE MORNING AND TAKE TWO TABLETS BY MOUTH BEFORE BEDTIME 360 Tablet 3 05/06/2023 05/05/20 24 Active Omeprazole 40 MG Oral Capsule Delayed Release (PriLOSEC) TAKE ONE CAPSULE BY MOUTH EVERY DAY IN THE MORNING 90 Capsule 2 05/06/2023 Active Lisinopril 30 MG Oral Tablet Take 1 Tablet by mouth in the morning. 100 Tablet 2 08/04/2023 Active predniSONE 10 MG Oral Tablet (Deltasone)Jessica cations:Rhiniti s medicamentosa,C hronic rhinitis Take 5 tabs for 2 days, 4 tabs for 2 days, 3 tabs for 2 days, 2 tabs for 2 days 1 tab for 2 days 30 Tablet 0 11/28/2023 Active Fluticasone Propionate 50 MCG/ACT Nasal Suspension (Flonase)Indica tions:Rhinitis medicamentosa,C hronic rhinitis Administer 1 Benson into each nostril in the morning and 1 Benson before bedtime. For 1st week, can do 2 spray each nostril twice a day, then down to 1 spray each nostril twice a day.. 1 Each 3 11/28/2023 Active predniSONE 10 MG Oral Tablet (Deltasone)Jessica cations:Acute viral sinusitis Take 5 tabs for 2 days, 4 tabs for 2 days, 3 tabs for 2 days, 2 tabs for 2 days 1 tab for 2 days 30 Tablet 0 03/05/2023 11/28/19 24 Discontinued(Med ication List Clean Up) Fluticasone Propionate 50 MCG/ACT Nasal Suspension (Flonase)Indica tions:Chronic maxillary sinusitis Administer 2 Sprays into each nostril in the morning. 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 Headache 01/26/2012 02/15/2023 Overview: ICD-10 update of inactive term Dyspnea and respiratory abnormality 11/12/2009 02/15/2023 Overview: ICD-10 update of inactive term documented as of this encounter (statuses as of 11/28/2023) Social History Tobacco Use Types Packs/Day Years [...] Sign Reading Time Taken Comments Blood Pressure 148/86 11/28/2023 8:13 AM EST Pulse 59 11/28/2023 8:13 AM EST Temperature 35.8 C (96.4 F) 11/28/2023 8:13 AM ES T Respiratory Rate 16 11/28/2023 8:13 AM EST Oxygen Saturation 98% 11/28/2023 8:13 AM EST Inhaled Oxygen Concentration - - Weight 69.7 kg (153 lb 9.6 oz) 11/28/2023 8:13 A M EST Height 165.1 cm (5' 5") 11/28/2023 8:13 AM EST Body Mass Index 25.56 11/28/2023 8:13 AM EST documented in this encounter Patient Instructions * Patient Instructions* Royal Lopez PA-C - 11/28/2023 8:34 AM EST Stop Afrin Start Flonase 2 sprays each nostril twice a day for a week. Then drop down to 1 spray each nostril twice a day. Start prednisone taper Follow-up with PCP if no improvement in 2-3 weeks. ER if acutely worsens documented in this encounter Progress Notes * Royal Lopez PA-C - 11/28/2023 8:23 AM EST Nursing Notes: Mirella Vaughan LPN 11/28/23 0816 Sign at exiting of workspace Patient spelled last name and verbalized birthdate to verify identity. Chief Complaint Patient presents with Congestion Pt here for complaints of nasal congestion for over a year.Pt states that he has been seen for thisseveral times but is not getting better Vasyl Graham Jr. is a 78 year old male who presents with upper respiratory symptoms for 8-12 months(s) Patient was accompanied by Self. HPI I saw the patient for similar in March 2023, and suspected viral vs allergic mediated sinusitis. Tried trial of prednisone and flonase at the time. He noted that this course was only mildly helpful. He still had congestion and rhinorrhea, however, and so in August he was seen by Fam Prac in who refilled flonase and added amox. He noted that this course did not help. Severity of Symptoms: Moderate Timing (how often does it occur): constant Quality (feels like): "I got a snoot full" He notes that he uses Afrin 1-2x a day for the last several months. He states that this is the onlything that works, but it is only for maximum of 12 hours relief at a time. Denies f/s/ch, face pain, ear pain/pressure, ST, cough, n/v/d/c, sob, wheezing, cp, palp. ROS See HPI HISTORY Past Medical History: Diagnosis Date Diverticulitis of colon 09/02/02 Past Surgical History: Procedure Laterality Date NONE REMOVE CATARACT, INSERT LENS PROSTH Left 01/21/2021 LEFT EXTRACAPSULAR CATARACT REMOVAL WITH INTRAOCULAR LENS performed by Chapito Contreras MD at [facility] REMOVE CATARACT, INSERT LENS PROSTH Right 02/04/2021 RIGHT EXTRACAPSULAR CATARACT REMOVAL WITH INTRAOCULAR LENS performed by Chapito Contreras MD at [facility] REPAIR INITIAL INGUINAL HERNIA REDUCIBLE AGE 5 OR MORE 10/08/00 right hernia repair with mesh Social History Tobacco Use Smoking status: Former Types: Cigars Smokeless tobacco: Former Substance Use Topics Alcohol use: Not Currently Comment: quit around 12/15/22 Vaping/E-Cigarette Use Vaping/E-Cigarette Use Never User Vaping/E-Cigarette Substances Vaping/E-Cigarette Devices Current Outpatient Medications Medication Sig Dispense Refill Aspirin 81 MG Oral Tablet Delayed Release Take 1 Tablet by mouth in the morning. Dutasteride 0.5 MG Oral Capsule (Avodart) Take 1 Capsule by mouth in the morning. 90 Capsule 3 Simvastatin 40 MG Oral Tablet (Zocor) TAKE ONE TABLET BY MOUTH EVERY EVENING 90 Tablet 3 Metoprolol Succinate ER 25 MG Oral Tablet Extended Release 24 Hour (toPROL XL) TAKE ONE TABLET BY MOUTH IN THE MORNING 100 Tablet 3 Terazosin HCl 5 MG Oral Capsule (Hytrin) TAKE ONE CAPSULE BY MOUTH AT BEDTIME 90 Capsule 1 oxyBUTYnin Chloride 5 MG Oral Tablet (Ditropan) TAKE TWO TABLETS BY MOUTH IN THE MORNING AND TAKE TWO TABLETS BY MOUTH BEFORE BEDTIME 360 Tablet 3 Omeprazole 40 MG Oral Capsule Delayed Release (PriLOSEC) TAKE ONE CAPSULE BY MOUTH EVERY DAY IN THEMORNING 90 Capsule 2 Lisinopril 30 MG Oral Tablet Take 1 Tablet by mouth in the morning. 100 Tablet 2 predniSONE 10 MG Oral Tablet (Deltasone) Take 5 tabs for 2 days, 4 tabs for 2 days, 3 tabs for 2 days, 2 tabs for 2 days 1 tab for 2 days 30 Tablet 0 Fluticasone Propionate 50 MCG/ACT Nasal Suspension (Flonase) Administer 1 Benson into each nostril in the morning and 1 Benson before bedtime. For 1st week, can do 2 spray each nostril twice a day, then down to 1 spray each nostril twice a day.. 1 Each 3 Dutasteride 0.5 MG Oral Capsule (Avodart) TAKE ONE CAPSULE BY MOUTH EVERY MORNING 90 Capsule 3 Metoprolol Succinate ER 25 MG Oral Tablet Extended Release 24 Hour (toPROL XL) TAKE ONE TABLET BY MOUTH IN THE MORNING 30 Tablet 5 No current facility-administered medications for this visit. Review of patient's allergies indicates: No Known Allergies Family History Problem Relation Age of Onset Hypertension Mother Stroke Mother Other (Other) Father AAA Neurological Disorder Grandfather (Maternal) Alzheimers OBJECTIVE BP 148/86 | Pulse 59 | Temp 35.8 C (96.4 F) | Resp 16 | Ht 1.651 m (5' 5") | Wt 69.7 kg (153 lb9.6 oz) | SpO2 98% | BMI 25.56 kg/m | BSA 1.79 m Wt Readings from Last 1 Encounters: 11/28/23 69.7 kg (153 lb 9.6 oz) General Appearance: awake, alert, no apparent distress HEENT: perrl and eomi tms - clear, normal light reflex, no erythema oral pharynx clear, mucus membranes moist No sinus tenderness or facial pain to percussion + turbinate engorgement and discharge Neck: normal, supple, no adenopathy Respiratory: clear to auscultation, no rhonchi, no wheezes, and no crackles Heart: regular rate, regular rhythm, no murmurs , no rubs, and no gallops Skin: skin color, texture, turgor are normal, no rashes or significant lesions Patient Instructions Stop Afrin Start Flonase 2 sprays each nostril twice a day for a week. Then drop down to 1 spray each nostril twice a day. Start prednisone taper Follow-up with PCP if no improvement in 2-3 weeks. ER if acutely worsens ASSESSMENT AND PLAN Rhinitis medicamentosa (Primary) - predniSONE 10 MG Oral Tablet (Deltasone); Take 5 tabs for 2 days, 4 tabs for 2 days, 3 tabs for 2days, 2 tabs for 2 days 1 tab for 2 days - Fluticasone Propionate 50 MCG/ACT Nasal Suspension (Flonase); Administer 1 Benson into each nostril in the morning and 1 Benson before bedtime. For 1st week, can do 2 spray each nostril twice a day, then down to 1 spray each nostril twice a day.. Chronic rhinitis - predniSONE 10 MG Oral Tablet (Deltasone); Take 5 tabs for 2 days, 4 tabs for 2 days, 3 tabs for 2days, 2 tabs for 2 days 1 tab for 2 days - Fluticasone Propionate 50 MCG/ACT Nasal Suspension (Flonase); Administer 1 [place] into each nostril in the morning and 1 Benson before bedtime. For 1st week, can do 2 spray each nostril twice a day, then down to 1 spray each nostril twice a day.. Will work to wean patient off of afrin, going back to nasal steroid spray. If no improvement, will do CT sinus and ENT referral. No evidence of secondary bacterial infection, and patient was already treated for this without relief. Follow-up: Return if symptoms worsen or fail to improve. | Check-out note: If symtoms worsen or fail to improve Patient goals for plan of care were discussed Royal Lopez PA-C [facility] [address] [facility] [address] documented in this encounter Nursing Notes * Mirella Vaughan LPN - 11/28/2023 8:12 AM EST Patient spelled last name and verbalized birthdate to verify identity. Chief Complaint Patient presents with Congestion Pt here for complaints of nasal congestion for over a year.Pt states that he has been seen for thisseveral times but is not getting better documented in this encounter Plan of Treatment Upcoming Encounters Date Type Department Care Team (Late st Contact Info) Description 01/18/2024 8:30 AM EDT Office Visit Cardiology, [facility] [address] [facility] [place] [address] Fannie Estrella CRNP [address] [place] [address] 01/24/2024 8:20 AM EDT Office Visit [facility] [address] [place] [address] Paul Lyn MD [address], [place] [id number] Health Maintenance Due Date Last Done Comments [...] this encounter Medical Devices Implanted Type Area Security Sme Device Identifier Shelf Expiration Date Model / Serial / Lot Lens Intraoc 20.0 - [id number] - [id number] Implanted:Qty: 1 on 01/21/2021 by Chapito Contreras MD at OR [facility] Left: Eye [employer] 09/02/2025 [id number] / [id number] / [id number] Lens Intraoc 19.0 - [id number] - [id number] Implanted:Qty: 1 on 02/04/2021 by Chapito Contreras MD at OR [facility] Right: Eye [employer]OM[employer] 10/03/2025 [id number] / [id number] / [id number] documented as of this encounter Visit Diagnoses Diagnosis Rhinitis medicamentosa- Primary Chronic rhinitis Chronic rhinitis documented in this encounter Care Teams Production Stage Manager Relationship Specialty Start Date End Date Paul Lyn MD [address] [place] [address] PCP - General Family Medicine 05/20/22 documented as of this encounter
--- OUTSIDE RECORDS SUMMARY | 2024-01-22 04:30 | External Medical Summary | Summary of Care ---
Author Name Unknown Organization [facility] Address [address] [place] [address] Phone [phone] Care Team Providers Care Mechanical Systems Control Engineer Name Role Phone Shira Wood MD Primary Care Provider +1- [phone] Reason for Visit * Reason Onset Date Comments Medication Refill 08/03/2023 Encounter Details Date Type Department Care Team (Late st Contact Info) Description 08/03/2023 Refill [facility] [address] [place] [address] Shira Wood MD [address] [place] [address] Allergies No known active allergiesdocumented as of this encounter (statuses as of 08/04/2023) Medications Medication Sig Dispensed Refills Start Date End Date Status Aspirin 81 MG Oral Tablet Delayed Release Take 1 Tablet by mouth in the morning. 0 Active Dutasteride 0.5 MG Oral Capsule (Avodart) Take 1 Capsule by mouth in the morning. 90 Capsule 3 3 Active predniSONE 10 MG Oral Tablet (Deltasone)Jessica cations:Acute viral sinusitis Take 5 tabs for 2 days, 4 tabs for 2 days, 3 tabs for 2 days, 2 tabs for 2 days 1 tab for 2 days 30 Tablet 0 3 Active Additional Information Patient not taking.Reported on 08/04/2023 Simvastatin 40 MG Oral Tablet (Zocor) TAKE ONE TABLET BY MOUTH EVERY EVENING 90 Tablet 3 3 01/01/20 24 Active Metoprolol Succinate ER 25 MG Oral Tablet Extended Release 24 Hour (toPROL XL) TAKE ONE TABLET BY MOUTH IN THE MORNING 100 Tablet 3 3 12/30/19 24 Active Dutasteride 0.5 MG Oral Capsule (Avodart) TAKE ONE CAPSULE BY MOUTH EVERY MORNING 90 Capsule 3 3 12/04/19 24 Active Metoprolol Succinate ER 25 MG Oral Tablet Extended Release 24 Hour (toPROL XL) TAKE ONE TABLET BY MOUTH IN THE MORNING 30 Tablet 5 2 Active Terazosin HCl 5 MG Oral Capsule (Hytrin) TAKE ONE CAPSULE BY MOUTH AT BEDTIME 90 Capsule 1 3 04/26/20 24 Active Oxybutynin Chloride 5 MG Oral Tablet (Ditropan) TAKE TWO TABLETS BY MOUTH IN THE MORNING AND TAKE TWO TABLETS BY MOUTH BEFORE BEDTIME 360 Tablet 3 3 05/05/20 24 Active Omeprazole 40 MG Oral Capsule Delayed Release (PriLOSEC) TAKE ONE CAPSULE BY MOUTH EVERY DAY IN THE MORNING 90 Capsule 2 3 Active Lisinopril 30 MG Oral Tablet Take 1 Tablet by mouth in the morning. 100 Tablet 2 3 Active Lisinopril 30 MG Oral Tablet Take 1 Tablet by mouth in the morning. 90 Tablet 0 3 08/03/20 23 Discontinued(Ref ill) Fluticasone Propionate 50 MCG/ACT Nasal Suspension (Flonase)Indica tions:Acute viral sinusitis Administer 2 Sprays into each nostril in the morning. 1 Each 0 3 08/04/20 23 Discontinued(Ref ill) Lisinopril 30 MG Oral Tablet TAKE ONE TABLET BY MOUTH EVERY MORNING 90 Tablet 0 3 08/04/20 23 Discontinued documented as of this encounter (statuses [...] encounter Miscellaneous Notes * Telephone Encounter - Madeline Tomas [facility] - 08/04/2023 12:30 PM EDT Signed Prescriptions: Disp Refills Lisinopril 30 MG Oral Tablet 100 Ta*2 Sig: Take 1 Tablet by mouth in the morning. Authorizing Provider: SHIRA WOOD Ordering User: MADELINE TOMAS * Telephone Encounter - Ester Johnson, senior designer - 08/03/2023 3:44 PM EDT Did you pend patient's preferred pharmacy and medication before forwarding?yes Pharmacy: [facility] Pending Prescriptions: Disp Refills Lisinopril 30 MG Oral Tablet 100 Ta*0 Sig: Take 1 Tablet by mouth in the morning. Last Visit: 01/21/2023 (in office), Visit date not found (telemedicine) Next Visit: 01/24/2024 If no future appointments scheduled, and last appointment is greater than a year ago, please schedule patient for a follow-up appointment Last date the medication was ordered: 12/22 Is this request for a controlled substance?No [...] 09/08/2023 8:00 AM EST Office Visit Cardiology, [address] [place] [address] Fannie Estrella CRNP [address] [place] [address] 01/24/2024 8:20 AM EDT Office Visit [facility] [address] [place] [facility] [address] Shira Wood MD [address] [place] [address] Health Maintenance Due Date Last Done Comments [...] this encounter Medical Devices Implanted Type Area Credit Administration Officer Device Identifier Shelf Expiration Date Model / Serial / Lot Lens Intraoc 20.0 - [id number] - [id number] Implanted:Qty: 1 on 01/21/2021 by Chapito Contreras MD at OR [facility] Left: Eye [employer] 09/02/2025 [id number] / [id number] / [id number] Lens Intraoc 19.0 - [id number] - [id number] Implanted:Qty: 1 on 02/04/2021 by Chapito Contreras MD at OR [facility] Right: Eye [employer]OM[employer] 10/03/2025 [id number] / [id number] / [id number] documented as of this encounter Care Teams Mechanical Systems Control Engineer Relationship Specialty Start Date End Date Shira Wood MD [address] [place] [address] PCP - General Family Medicine 05/20/22 documented as of this encounter
--- OUTSIDE RECORDS SUMMARY | 2024-01-22 04:30 | External Medical Summary | Summary of Care ---
Author Name Unknown Organization [facility] Address [address] [place] [place] [address] Phone [phone] Care Team Providers Care Head Porter Baggage Name Role Phone Paul Lyn MD Primary Care Provider [phone]- [phone] Reason for Visit * Reason Comments Medication Refill Encounter Details Date Type Department Care Team (Late st Contact Info) Description 01/13/2024 Refill Cardiology, [facility] [address] [place] [address] Eva Taylor PA-C [address] [place] [address] Essential hypertension with goal blood pressure less than 140/90*; PVC (premature ventricular contraction) Allergies No known active allergiesdocumented as of this encounter (statuses as of 01/13/2024) Medications Medication Sig Dispensed Refills Start Date End Date Status Aspirin 81 MG Oral Tablet Delayed Release Take 1 Tablet by mouth in the morning. 0 Active Simvastatin 40 MG Oral Tablet (Zocor) TAKE ONE TABLET BY MOUTH EVERY EVENING 90 Tablet 3 01/01/2023 4 Active oxyBUTYnin Chloride 5 MG Oral Tablet (Ditropan) TAKE TWO TABLETS BY MOUTH IN THE MORNING AND TAKE TWO TABLETS BY MOUTH BEFORE BEDTIME 360 Tablet 3 05/06/2023 4 Active Omeprazole 40 MG Oral Capsule Delayed Release (PriLOSEC) TAKE ONE CAPSULE BY MOUTH EVERY DAY IN THE MORNING 90 Capsule 2 05/06/2023 Active Lisinopril 30 MG Oral Tablet Take 1 Tablet by mouth in the morning. 100 Tablet 2 08/04/2023 Active predniSONE 10 MG Oral Tablet (Deltasone)Indicat ions:Rhinitis medicamentosa,Clin Application Specialist alyse rhinitis Take 5 tabs for 2 days, 4 tabs for 2 days, 3 tabs for 2 days, 2 tabs for 2 days 1 tab for 2 days 30 Tablet 0 11/28/2023 Active Fluticasone Propionate 50 MCG/ACT Nasal Suspension (Flonase)Indicatio ns:Rhinitis medicamentosa,Clin Application Specialist alyse rhinitis Administer 1 [place] into each nostril in the morning and 1 [place] before bedtime. For 1st week, can do 2 spray each nostril twice a day, then down to 1 spray each nostril twice a day.. 1 Each 3 11/28/2023 Active Terazosin HCl 5 MG Oral Capsule (Hytrin) TAKE ONE CAPSULE BY MOUTH AT BEDTIME 90 Capsule 1 12/07/2023 5 Active Dutasteride 0.5 MG Oral Capsule (Avodart) TAKE ONE CAPSULE BY MOUTH EVERY MORNING 90 Capsule 1 12/10/2023 5 Active Metoprolol Succinate ER 25 MG Oral Tablet Extended Release 24 Hour (toPROL XL)Indications:Ess ential hypertension with goal blood pressure less than 140/90,PVC (premature ventricular contraction) TAKE ONE TABLET BY MOUTH IN THE MORNING 90 Tablet 3 01/13/2024 5 Active Metoprolol Succinate ER 25 MG Oral Tablet Extended Release 24 Hour (toPROL XL) TAKE ONE TABLET BY MOUTH IN THE MORNING 100 Tablet 3 12/30/2022 4 Discontinue d(Refill) documented as of this encounter (statuses as of 01/13/2024) Active Problems Problem Noted Date Diagnosed Date [...] as of this encounter (statuses as of 01/13/2024) Resolved Problems Problem Noted Date Diagnosed Date Resolved Date Heart palpitations 12/18/2021 Smell and taste disorder 01/26/2012 Headache 01/26/2012 02/15/2023 Overview: ICD-10 update of inactive term Dyspnea and respiratory abnormality 11/12/2009 02/15/2023 Overview: ICD-10 update of inactive term documented as of this encounter (statuses as of 01/13/2024) Social History Tobacco Use Types Packs/Day Years [...] encounter Miscellaneous Notes * Telephone Encounter - Zainab Reagan CRNP - 01/13/2024 10:14 AM EDT Signed Prescriptions: Disp Refills Metoprolol Succinate ER 25 MG Oral Tablet *90 Tab*3 Sig: TAKE ONE TABLET BY MOUTH IN THE MORNING Authorizing Provider: ZAINAB REAGAN * Telephone Encounter - Arminda Polo CMA - 01/13/2024 9:00 AM EDTPending Prescriptions: Disp Refills Metoprolol Succinate ER 25 MG Oral Tablet *90 Tab*3 Sig: TAKE ONE TABLET BY MOUTH IN THE MORNING * Telephone Encounter - Arminda Polo CMA - 01/13/2024 9:00 AM EDT Did you pend patient's preferred pharmacy and medication before forwarding?yes Pharmacy: [facility] Pending Prescriptions: Disp Refills Metoprolol Succinate ER 25 MG Oral Tablet*90 Tab*3 Sig: TAKE ONE TABLET BY MOUTH IN THE MORNING Last Visit: 12/30/2022 (in office), Visit date not found (telemedicine) Next Visit: 01/18/2024 If no future appointments scheduled, and last appointment is greater than a year ago, please schedule patient for a follow-up appointment Last date the medication was ordered: 12-30-2022 Is this request for a controlled substance?No [...] 01/18/2024 8:30 AM EDT Office Visit Cardiology, [facility] [address] [facility] [place] [address] Fannie Estrella CRNP [address] [place] [address] 01/24/2024 8:20 AM EDT Office Visit [facility] [address] [place] [address] Paul Lyn MD [address] [place] [address] Health Maintenance Due Date Last Done Comments Albumin/Creatinine Ratio 1963 Hepatitis C Screening 1963 DTaP,Tdap,and Td Vaccines (1 - Tdap) 1963 Zoster Vaccines (1 of 2) 1994 Pneumococcal Vaccine: 65+ Years (2 of 2 - PCV) 07/18/2015 07/18/2014 COVID-19 Vaccine ( - season) 2023 GFR 12/31/2023 12/30/2022, 03/0 10/2021, [...] this encounter Medical Devices Implanted Type Area Commercial Hvac Technician Device Identifier Shelf Expiration Date Model / Serial / Lot Lens Intraoc 20.0 - [id number] - [id number] Implanted:Qty: 1 on 01/21/2021 by Chapito Contreras MD at OR [facility] Left: Eye [employer] 09/02/2025 [id number] / [id number] / [id number] Lens Intraoc 19.0 - [id number] - [id number] Implanted:Qty: 1 on 02/04/2021 by Chapito Contreras MD at OR [facility] Right: Eye [employer] LOMB 10/03/2025 [id number] / [id number] / [id number] documented as of this encounter Visit Diagnoses Diagnosis Essential hypertension with goal blood pressure less than 140/90- Primary PVC (premature ventricular contraction) Other premature beats documented in this encounter Care Teams Head Porter Baggage Relationship Specialty Start Date End Date Paul Lyn MD [address] [place] [address] PCP - General Family Medicine 05/20/22 documented as of this encounter
--- OUTSIDE RECORDS SUMMARY | 2024-01-22 04:30 | External Medical Summary | Summary of Care ---
Author Name Unknown Organization [facility] Address [address] [place] [address] Phone [phone] Care Team Providers Care Skoog Machine Operator Name Role Phone Paul Lyn MD Primary Care Provider [phone] Reason for Visit * Reason Comments Congestion Nasal Encounter Details Date Type Department Care Team ([facility] Contact Info) Description 08/04/2023 9:20 AM EDT Office Visit [address] [id number] Trang Cabello MD [address] [place] [phone] Chronic maxillary sinusitis*; Risk and functional assessment Allergies No known active allergiesdocumented as of [...] the morning. 90 Tablet 0 12/22/2022 Active predniSONE 10 MG Oral Tablet (Deltasone)Indic ations:Acute viral sinusitis Take 5 tabs for 2 days, 4 tabs for 2 days, 3 tabs for 2 days, 2 tabs for 2 days 1 tab for 2 days 30 Tablet 0 03/05/2023 Active Additional Information Patient not taking.Reported on 08/04/2023 Simvastatin 40 MG Oral Tablet (Zocor) TAKE ONE TABLET BY MOUTH EVERY EVENING 90 Tablet 3 01/01/2023 4 Active Metoprolol Succinate ER 25 MG Oral Tablet Extended Release 24 Hour (toPROL XL) TAKE ONE TABLET BY MOUTH IN THE MORNING 100 Tablet 3 12/30/2022 4 Active Lisinopril 30 MG Oral Tablet TAKE ONE TABLET BY MOUTH EVERY MORNING 90 Tablet 0 12/22/2022 4 Active Dutasteride 0.5 MG Oral Capsule (Avodart) TAKE ONE CAPSULE BY MOUTH EVERY MORNING 90 Capsule 3 12/04/2022 4 Active Metoprolol Succinate ER 25 MG Oral Tablet Extended Release 24 Hour (toPROL XL) TAKE ONE TABLET BY MOUTH IN THE MORNING 30 Tablet 5 04/14/2022 Active Terazosin HCl 5 MG Oral Capsule (Hytrin) TAKE ONE CAPSULE BY MOUTH AT BEDTIME 90 Capsule 1 04/27/2023 4 Active Oxybutynin Chloride 5 MG Oral Tablet (Ditropan) TAKE TWO TABLETS BY MOUTH IN THE MORNING AND TAKE TWO TABLETS BY MOUTH BEFORE BEDTIME 360 Tablet 3 05/06/2023 4 Active Omeprazole 40 MG Oral Capsule Delayed Release (PriLOSEC) TAKE ONE CAPSULE BY MOUTH EVERY DAY IN THE MORNING 90 Capsule 2 05/06/2023 Active Amoxicillin 875 MG Oral TabletIndication s:Chronic maxillary sinusitis Take 1 Tablet by mouth in the morning and 1 Tablet before bedtime. Do all this for 10 days. 20 Tablet 0 08/04/2023 3 Active Fluticasone Propionate 50 MCG/ACT Nasal Suspension (Flonase)Indicat ions:Chronic maxillary sinusitis Administer 2 Sprays into each nostril in the morning. 16 g 0 08/04/2023 Active Fluticasone Propionate 50 MCG/ACT Nasal Suspension (Flonase)Indicat ions:Acute viral sinusitis Administer 2 Sprays into each nostril in the morning. 1 Each 0 03/05/2023 3 Discontinue d(Refill) documented as of this encounter [...] Cigars Q uit: 12/15/2022 Smokeless Tobacco: Former Tobacco Cessation:Counseling Given: Not [...] Sign Reading Time Taken Comments Blood Pressure 114/70 08/04/2023 8:55 AM EDT Pulse 52 08/04/2023 8:55 AM EDT Temperature 36.8 C (98.2 F) 08/04/2023 8:55 AM ED T Respiratory Rate 17 08/04/2023 8:55 AM EDT Oxygen Saturation 98% 08/04/2023 8:55 AM EDT Inhaled Oxygen Concentration - - Weight 71.2 kg (157 lb) 08/04/2023 8:55 AM EDT Height - - Body Mass Index 26.13 03/05/2023 4:30 PM EDT documented in this encounter Patient Instructions * Patient Instructions* Jeff Townsend LPN - 08/04/2023 8:56 AM EDT Patient Instructions - Fall Prevention (This education is for all patients over 65 regardless of symptoms) Remember to take your current medications as prescribed. In order to prevent falls, you are encouraged to: Exercise Utilize assistive/adaptive devices Avoid multifocal lenses when walking Avoid hazards in home Maintain a regular toileting schedule Any questions please contact our office. Preventing Falls in the Home (This education is for all patients over 65 regardless of symptoms) As you get older, falls are more likely. Thats because your reaction time slows. Your muscles and joints may also get stiffer, making them less flexible. Illness, medications, and vision changes can also affect your balance. A fall could leave you unable to live on your own. To make your home safer, follow these tips: Floors Put nonskid pads under area rugs Remove throw rugs Replace worn floor coverings Tack carpets firmly to each step on carpeted stairs. Put nonskid strips on the edges of uncarpeted stairs Keep floors and stairs free of clutter and cords Arrange furniture so there are clear pathways Clean up any spills right away Bathrooms Install grab bars in the tub or shower Apply nonskid strips or put a nonskid rubber mat in the tub or shower Sit on a bath chair to bathe Use bathmats with nonskid backing Lighting Keep a flashlight in each room Put a nightlight along the pathway between the bedroom and the bathroom [employer] Patient Education Copyright 2008 - 2010 [employer] except where otherwise noted Preventing Falls: Exercises to Improve Balance, Flexibility, Strength, and Staying Power (This education is for all patients over 65 regardless of symptoms) Certain types of exercises may help make you less likely to fall. Try the ones below. Or do other exercises that your healthcare provider suggests. Depending on your health, you may need to start slowly. Dont let that stop you. Even small amounts of exercise can help you. Be sure to talk to yourhealthcare provider before starting any exercise program. Improve Balance Many types of exercise can help improve balance. Isac chi and yoga are good examples. Heres another one to try. You can do it anytime and almost anywhere. Stand next to a counter or solid support. Push yourself up onto your tiptoes. Hold for 5 seconds. If you start to lose your balance, hold on to the counter. Rest and repeat 5 times. Work up to holding for 20 to 30 seconds, if you can. Increase Flexibility Being more flexible makes it easier for you to move around safely. Try exercises like the seated hamstring stretch. Sit in a chair and put one foot on a stool. Straighten your leg and reach with both hands down either side of your leg. Reach as far down your leg as you can. Hold for about 20 seconds. Go back to the starting position. Then repeat 5 times. Switch legs. Build Strength Resistance exercises help build strength. You can do them without equipment. Or you can use weights, elastic bands, or special machines. One such exercise is called the biceps curl. You can hold a 1 pound weight or even a can of soup. Do this exercise at least 3 times a week. Strive for everyday. Sit up straight in a chair. Keep your elbow close to your body and your wrist straight. Bend your arm, moving your hand up to your shoulder. Then slowly lower your arm. Repeat 5 times. Switch to the other arm. Build Your Staying Power Aerobic exercises make your heart and lungs stronger so you can keep moving longer. Walking and swimming are two of the best types of exercises you can do. Using a stationary bike is great, too. Find an aerobic exercise that you enjoy. Start slowly and build up. Even 5 minutes is helpful. Aimfor a goal of 30 minutes, at least 3 times a week. You dont have to do 30 minutes in one session. Break it up and walk a little throughout the day. More Helpful Tips Start easy. Slowly work up to doing more. Talk with your healthcare provider about the best exercises for you. Call senior centers or health clubs about exercise programs. If needed, have a family member watch you walk every so often to check your stability. Exercise with a friend. Choose an activity you both enjoy. Try exercises that you can do anytime, anywhere. Here are two examples. Have someone with you when you first try these: Practice walking by placing one foot right in front of the other. Stand up and sit down 10 times. Repeat this throughout the day. [employer] Patient Education Copyright 2008 [employer] except where otherwise noted. Preventing Falls: Moving Safely Using a Cane or Walker (This education is for all patients over 65 regardless of symptoms) Keep the cane away from your feet so you dont trip. A walking aid, such as a cane or walker, can help you stay more independent and avoid falls. Remember to keep your walking aid within easy reach when youre in a chair or in bed. And learn how to use it safely so you dont injure yourself. Using a Cane If you have a stronger side, hold the cane on that side. Get your balance. Move the cane and your weaker leg forward. Support your weight on both the cane and your weaker side. Step with your stronger leg. Start again from step 1. If youre using a folding walker, be sure you know how to lock it open. Check that its locked open before each use. Using a Walker Roll the walker (or lift it, if youre using one without wheels) forward about 12 inches. Step forward with your weaker leg first. Use the walker to help keep your balance. Bring your other foot forward to the center of the walker. Start again from step 1. Helpful Tips Check with your healthcare provider about the right walking aid to use. Ask about a walker with a seat attached. Check the tips of your cane or walker to make sure they have nonskid covers. Move slowly from room to room. Dont macknezie. Sit down to get dressed. Use a yung pack or backpack to keep your hands free. Get help for jobs that mean climbing, even on a stepstool. [employer] Patient Education Copyright 2008 [employer] except where otherwise noted. Treating Urinary Incontinence in Men (This education is for all patients over 65 regardless of symptoms) You can't always control the release of urine. You may leak urine. Or you may not be able to hold your urine until you can get to a bathroom. This is called urinary incontinence. The problem can be managed. Talk to your doctor about your treatment options. Taking Medications Prescription medications may help you. They may: Help the sphincter to work better. (This is the muscle that closes to keep urine from leaking out of the bladder.) Help stop the bladder from sy too often to push urine out. Help the bladder muscles contract with more force. Help relax the sphincter muscle and allow urine to flow more freely. Making Changes to Your Routine Certain changes in your daily routine may help. These include: Avoiding caffeine and alcohol. Using timed voiding. This is following a schedule for drinking fluids and urinating. Doing Kegel exercises daily. These exercises involve tightening the muscles in your sphincter and around your bladder to help strengthen them. Your doctor can explain how to do them. Using a Catheter A catheter is a narrow tube that is inserted through the urethra into the bladder. It drains urine.A condom catheter covers the penis. It channels urine into a collection bag. It is worn most of thetime. Intermittent catheterization means inserting a catheter to drain the bladder, then removing it. This is done on a regular schedule. Having Surgery If other options don't work, surgery may be recommended. If surgery is an option, your healthcare provider can discuss it with you and explain its risks and benefits. Healing After Prostate Surgery Surgery on the prostate gland can cause incontinence. Most often, the incontinence is only for a short time. It clears up when healing is complete. Very rarely, prostate surgery can result in permanent incontinence. documented in this encounter Progress Notes * Trang Cabello MD - 08/04/2023 9:09 AM EDT Images from the original note were not included. History of Present Illness Vasyl Graham Jr. is a 77 year old male with chronic rhinitis, hypertension, hyperlipidemia, SVT, GERD, chronic neck pain, , tobacco and alcohol use that presents for Congestion (Nasal ) Reports he has had ongoing chronic congestion, rhinorrhea, and post nasal drip of right maxillary sinus since March. He tried flonase and prednisone from [facility] care which did not help. More recently this pressure has been worsening. He has thick yellow opaque drainage from his right nose. No known foreign body, fevers, or chills. Physical Exam Vitals: 08/04/23 0855 Temp: 36.8 C (98.2 F) Pulse: 52 Resp: 17 SpO2: 98% BP: 114/70 Physical Exam Vitals reviewed. Constitutional: General: He is not in acute distress. Appearance: He is not toxic-appearing. HENT: Head: Normocephalic and atraumatic. Right Ear: Ear canal normal. There is impacted cerumen. Left Ear: Tympanic membrane and external ear normal. Nose: Nasal tenderness, mucosal edema and congestion present. Right Nostril: No foreign body. Right Turbinates: Enlarged and swollen. Right Sinus: Maxillary sinus tenderness present. Comments: Thick, yellow, purulent mucus in right nasal cavity Mouth/Throat: Comments: Thick, yellow, opaque drainage in posterior oropharynx Cardiovascular: Rate and Rhythm: Normal rate and regular rhythm. Pulmonary: Effort: Pulmonary effort is normal. No respiratory distress. Breath sounds: Normal breath sounds. Musculoskeletal: Right lower leg: No edema. Left lower leg: No edema. Lymphadenopathy: Cervical: No cervical adenopathy. Neurological: Mental Status: He is alert. I have reviewed the following results: None Assessment and Plan Chronic maxillary sinusitis Concern for bacterial infection with thick purulent nasal discharge. Treat with amoxicillin. Start flonase following. Given length of symptoms, consider CT sinuses and ENT referral if not improved - Amoxicillin 875 MG Oral Tablet; Take 1 Tablet by mouth in the morning and 1 Tablet before bedtime. Do all this for 10 days. - Fluticasone Propionate 50 MCG/ACT Nasal Suspension (Flonase); Administer 2 Sprays into each nostril in the morning. Risk and functional assessment Education provided to reduce fall risk Wrap-Up Follow Up: Return if symptoms worsen or fail to improve. Time: I spent a total of 10-19 minutes (exact time 13 mins) on the date of service in preparation, delivery, and documentation of the care provided to Vasyl Graham Jr. excluding any time spent in the performance of separately billed services. * Jeff Townsend LPN - 08/04/2023 8:56 AM EDT Fall Risk Plan of Care Documentation: - Current medications reconciled Patient encouraged to: - Exercise - Provide education materials for Core strengthening - Utilize assistive/adaptive devices - Provide education materials - Avoid multifocal lenses when walking - Avoid hazards in home - Provide education materials - Maintain a regular toileting schedule Jeff Townsend LPN 08/04/2023 documented in this encounter Nursing Notes * Jeff Townsend LPN - 08/04/2023 8:59 AM EDT The patient has been properly identified by confirmation of name and date of . Chief Complaint Patient presents with Congestion Nasal Patient has been verbally educated on the need or importance of Vaccines. documented in this encounter Plan of Treatment Upcoming Encounters Date Type Department Care Team (Late st Contact Info) Description 09/08/2023 8:00 AM EST Office Visit Cardiology, [facility] [address] [facility] [place] [address] Fannie Estrella CRNP [address] [facility] [place] [phone] 01/24/2024 8:20 AM EDT Office Visit [facility] [address] [place] [id number] Paul Lyn MD [address] [place], [place] [id number] Health Maintenance Due Date Last Done Comments [...] this encounter Medical Devices Implanted Type Area Food Photographer Device Identifier Shelf Expiration Date Model / Serial / Lot Lens Intraoc 20.0 - [id number] - [id number] Implanted:Qty: 1 on 01/21/2021 by Chapito Contreras MD at OR [facility] Left: Eye [employer] 09/02/2025 [id number] / [id number] / [id number] Lens Intraoc 19.0 - [id number] - [id number] Implanted:Qty: 1 on 02/04/2021 by Chapito Contreras MD at OR [facility] Right: Eye [employer] 10/03/2025 [id number] / [id number] / [id number] documented as of this encounter Visit Diagnoses Diagnosis Chronic maxillary sinusitis- Primary Risk and functional assessment Screening for unspecified condition documented in this encounter Care Teams Skoog Machine Operator Relationship Specialty Start Date End Date Paul Lyn MD [address] [place] [address] PCP - General Family Medicine 05/20/22 documented as of this encounter
[2024-01-22 06:14] LABS: Albumin Globulin Ratio 1.6 (0.9-2); Albumin Level 3.6 gm/dl (3.4-5.0); Bilirubin,Total 1.1 mg/dl (0.2-1.0); Calcium 8.5 mg/dl (8.6-10.3); Creatinine Clr Calc Pharmacy 55.4 ml/min; Est GFR (Non-African American) 76.8 ml/min; Globulin 2.2 gm/dl (2.5-4.0); Potassium 3.5 mmol/L (3.5-5.1); Total Protein 5.8 gm/dl (6.0-8.3)
[2024-01-22] MEDS: traMADol HCL 50 MG TABLET PO PRN (06:22)
[2024-01-22 06:33] LABS: Hematocrit (blood only) 31.7 % (42.0-52.0); Hemoglobin 10.9 g/dl (14.0-18.0); Mean Corpuscular Hemoglobin 30.4 pg (25.0-34.0); Mean Corpuscular Hgb Conc 34.4 g/dL (32.0-36.0); Mean Corpuscular Volume 88.3 fL (80.0-100.0); Mean Platelet Volume 11.5 fL (9.4-12.4); Platelet Count 161 K/uL (130-400); RDW Coefficient of Variation 15.3 % (11.5-14.5); RDW Standard Deviation 49.5 fL (36.4-46.3); Red Blood Count 3.59 M/uL (4.70-6.10); White Blood Count 9.05 K/ul (4.8-10.8)
--- NOTE | 2024-01-22 08:31 | Orthopedic Consultation ---
Date of Consultation January 22, 2024 Assessment & Plan (1) Cat bite: 78-year-old male with left dorsal forearm cat bite Elevate left upper extremity IV antibiotic therapy Pain control Medical management Obtain MRI with contrast to rule out abscess History of Present Illness Reason for Consultation: Left dorsal forearm cat bite Attending Physician: Tico Coker MD History of Present Illness 78-year-old male presenting after sustaining a cat bite to the dorsum of his distal third radius. He noted swelling overlying the area. Reports that it was a feral cat. Patient was admitted to medical service for monitoring and IV antibiotic therapy. Orthopedics was consulted for evaluation Allergies Allergy/AdvReac Type Severity Reaction Status Date / Time No Known Allergies Allergy Verified 05/18/22 13:52 Home Medications Medication Instructions Recorded Confirmed Type dutasteride 0.5 mg capsule 0.5 mg PO QAM 07/20/19 01/21/24 History lisinopril 30 mg tablet 30 mg PO QAM 07/20/19 01/21/24 History omeprazole 40 mg capsule,delayed 40 mg PO QAM 07/20/19 01/21/24 History release oxybutynin chloride 5 mg tablet 5 mg PO BID 07/20/19 01/21/24 History simvastatin 40 mg tablet 40 mg PO HS 07/20/19 01/21/24 History terazosin 5 mg capsule 5 mg PO HS 07/20/19 01/21/24 History aspirin 81 mg tablet,delayed 81 mg PO DAILY 05/14/22 01/21/24 History release metoprolol succinate 25 mg 25 mg PO QAM 05/14/22 01/21/24 History tablet,extended release 24 hr Patient History Medical History History of paroxysmal supraventricular tachycardia Encounter for pre-operative examination Ureterolithiasis Chronic back pain neck- cant turn side to side very well. up and down is ok BPH (benign prostatic hyperplasia) Diverticular disease has had in past GERD (gastroesophageal reflux disease) Hearing deficit Cardiac murmur doesnt follow with anyone DX As CHILD Hypertension Hyperlipidemia Surgical History History of ingrown nail LEFT FOOT WITH REPAIR History of deviated nasal septum with repair History of colonoscopy Hx of hernia repair Social History Smoking Status: Never smoker Cigarettes Per Day: 15; Second Hand Exposure: Yes; Do You Dip or Chew Tobacco: No; Hx Alcohol Use: Yes Alcohol type: beer and hard liquor Hx Substance Use: No Preferred Language: Belarusian Communication Ability: Effective Africana Studies Professor Required: No Beliefs That Will Affect Care: None Current Living Situation: Alone Other Information That Helps Us Care for You: No Feels Safe at Home: Yes Safety Concerns: Feels Safe At This Time Assistive Devices: None Physical Exam Constitutional: NAD, resting in bed Musculoskeletal: LUE - diffsue edema overlying distal forearm and hand - no fluctuance - silt srad/m/uln - fires wf/we/epl/fpl/edc/fdp - tolerates gentle wrist PROM w/o pain + rad Results & Data Vital Signs (Past 12 Hours) Vital Signs Temp Pulse Pulse Resp BP BP Pulse Ox 01/22/24 03:35 36.9 C 84 20 131/69 96 01/21/24 22:40 37.8 C H 102 H 18 158/97 H 96 01/21/24 22:36 108 H 01/21/24 21:40 108 H 15 97 01/21/24 21:30 108 H 21 98 01/21/24 21:29 166/118 H 01/21/24 21:29 107 H 22 96 01/21/24 21:20 107 H 18 97 01/21/24 21:00 108 H 16 01/21/24 20:57 102 H 21 100 01/21/24 20:57 144/98 H 01/21/24 20:50 92 H 12 99 01/21/24 20:40 89 17 99 01/21/24 20:30 97 H 23 98 O2 Del Method 01/22/24 03:35 Room Air 01/21/24 22:40 Room Air 01/21/24 22:36 01/21/24 21:40 01/21/24 21:30 01/21/24 21:29 01/21/24 21:29 01/21/24 21:20 01/21/24 21:00 01/21/24 20:57 01/21/24 20:57 01/21/24 20:50 01/21/24 20:40 01/21/24 20:30 Diagnostic Findings Radiographs of the forearm demonstrate no evidence of fracture or foreign body (1) Cat bite Encounter type: initial encounter Qualified Code(s): W55.01XA - Bitten by cat, initial encounter
[2024-01-22] MEDS: MoRPHine SULFATE 2 MG/ML CARP IV PRN (09:03)
[2024-01-22] MEDS: FINASTERIDE 5 MG TAB PO SCH (10:11)
[2024-01-22] MEDS: ENOXAPARIN INJ 40 MG/0.4 ML SYR SQ SCH (10:11)
[2024-01-22] MEDS: ASPIRIN 81 MG ECTAB PO SCH (10:12)
[2024-01-22] MEDS: PANTOprazole 40 MG TAB PO SCH (10:13)
[2024-01-22] MEDS: lisinopril 10 MG TAB PO SCH (10:15)
[2024-01-22] MEDS: METOPROLOL SUCC 25MG EXT REL TAB PO SCH (10:16)
[2024-01-22] MEDS: GADOBUTROL 30ML VIAL IV ONE (11:43)
--- NOTE | 2024-01-22 14:12 | Magnetic Resonance Report ---
MRI OF THE LEFT FOREARM COMBO CLINICAL HISTORY: Cat bite injury. Pain, swelling, and erythema. COMPARISON STUDY: Radiographs of the left forearm dated 01/21/2024. TECHNIQUE: MRI of the left forearm was performed utilizing various T1 and T2-weighted sequences in th e axial, sagittal, and coronal planes. Contrast-enhanced sequences are acquired following the IV admi nistration of 7 cc of Gadavist. The examination is compromised by motion artifact. FINDINGS: There is no MRI evidence of acute fracture. There is a chronic avulsion injury of the ulnar styloid. There is no marrow change to suggest osteomyelitis. Degenerative change is noted in the elb ow and wrist joints. An elbow joint effusion is observed. There is a benign-appearing lesion of the d istal ulna, which is T1 hypointense, T2 hyperintense, and shows postcontrast enhancement. This shows a narrow zone of transition. There is no expansile or soft tissue component, and the appearance favor s a benign lesion such as an enchondroma. There is subcutaneous soft tissue edema and trace fluid is seen on the volar aspect of the distal forearm/wrist with nonspecific patchy enhancement. The appeara nce favors cellulitis. No organized fluid collection is seen to indicate abscess. The regional muscul ature is normal as imaged. There is mild fluid and enhancement around the extensor tendons at the wri st joint. Tenosynovitis is not excluded. There is tendinopathy of the biceps tendon, which appears in tact. The brachioradialis appears maintained. IMPRESSION: 1. No acute bony abnormality is seen involving the forearm. 2. There is evidence of cellulitis along the volar aspect of the distal forearm/wrist. No fluid colle ction is seen to suggest abscess. 3. Findings suggest a nonspecific tenosynovitis of the extensor tendons of the wrist joint. Correlate clinically. 4. There is an indeterminant benign-appearing lesion of the distal ulna as detailed above, possibly r epresenting an enchondroma. Dictated: 01/22/2024 12:05 PM Transcribed: 01/22/2024 12:32 PM Yared [id number] [email or web address] Electronically signed by: Jett Toro M.D. 01/22/2024 2:10 PM
--- NOTE | 2024-01-22 16:19 | Hospitalist Progress Note ---
Date of Service January 22, 2024 Assessment & Plan (1) Cellulitis of forearm, left: (2) Cat bite: (3) History of paroxysmal supraventricular tachycardia: (4) HTN (hypertension): (5) BPH (benign prostatic hyperplasia): (6) Hyperlipidemia: (7) GERD (gastroesophageal reflux disease): Plan Mr. Graham is a 78 y/o M was at his house feeding stray cats and one bit his left forearm yesterday between [id number]. His left forearm has a small superficial bite rebecca on the ventral aspect of his hand. He has erythema and swelling at the site with lymphangitis on the left dorsal forearm. He denies previous bites. He has seen this cat before and has fed it before, but it lives outside and is not domesticated. Mild leukocytosis WBC 11.15, lactate and procalcitonin normal. Otherwise electrolytes unremarkable.L Forearm x-ray indicates no osteomyelitis but soft tissue swelling; old ulnar styloid fracture noted. No retained foreign matter (tooth) noted. RIG x4 (R thigh x2, L thigh x1 and left forearm), rabies vaccine, and Tdap administered with initiation of Unasyn IV. 1L NS be administered. Patient will be admitted for further evaluation and management of forearm cellulitis and lymphangitis Obtain MRSA screen, blood cultures low yield but were obtained in ED, limb elevation, cover for staph with Unasyn and Ortho consult given location of bite/increased swelling around joint. Cellulitis of left wrist: Lymphangitis/Tenosynovitis s/p Cat bite -- Left forearm MRI:No acute bony abnormality is seen involving the forearm. There is evidence of cellulitis along the volar aspect of the distal forearm/wrist. No fluid collection is seen to suggest abscess. Findings suggest a nonspecific tenosynovitis of the extensor tendons of the wrist joint. 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 -- Blood cultures pending --Negative MRSA screen -- Received Tdap, RIG plus rabies vaccine in ED Continue Unasyn --Received IV fluids Pain control Appreciate orthopedics input Elevate left upper extremity H/O PSVT HTN Continue metoprolol, terazosin, and lisinopril Follows with [facility] cardiology HLD: continue simvastatin BPH: continue terazosin GERD: continue PPI DVT Px: Lovenox SQ CODE STATUS: Full code Admission and Anticipated Discharge Date Admission Date: January 21, 2024 Subjective Patient is seen and examined at bedside States having left hand swelling associated with redness and pain Denies any chest pain, dyspnea, dizziness, nausea, vomiting, abdominal pain No other complaints Review of Systems Review of Systems: All systems reviewed & are unremarkable except as noted in Subjective Physical Exam Physical Exam: Physical Exam: Vitals signs as noted above General Appearance:Moderately built and nourished, no apparent distress Head: normocephalic, Atraumatic Eyes: normal inspection, EOMI Neck: supple, Trachea midline Respiratory/Chest: Normal breath sounds, CTA, No accessory muscle use Cardiovascular: S1, S2, No murmur Abdomen/GI:Soft, Non tender, Bowel sounds present Extremities/Musculoskeletal:normal inspection, left upper extremity swelling, erythema, tender Neurologic/Psych:AAOX3, grossly no focal neurological deficits Skin: normal color, warm Results & Data Results & Data Vital Signs (Past 12 Hours) Vital Signs Temp Pulse Resp BP Pulse Ox O2 Del Method 01/22/24 15:08 37.0 C 82 20 137/90 98 Room Air 01/22/24 12:15 37.4 C 88 18 126/81 95 Room Air 01/22/24 07:51 36.4 C L 91 H 20 129/85 98 Room Air Laboratory Results Short CBC 01/22/24 Range/Units 05:25 WBC 9.05 (4.8-10.8) K/ul Hgb 10.9 L (14.0-18.0) g/dl Hct 31.7 L (42.0-52.0) % Plt Count 161 (130-400) K/uL BMP 01/22/24 05:25 Sodium 140 Potassium 3.5 Chloride 110 H Carbon Dioxide 23 BUN 15 Creatinine 0.94 Glucose 101 H Calcium 8.5 L Liver Function 01/22/24 Range/Units 05:25 Total Bilirubin 1.1 H (0.2-1.0) mg/dl AST 17 (13-39) U/L ALT 9 (7-52) U/L Alkaline Phosphatase 44 (34-104) U/L Albumin 3.6 (3.4-5.0) gm/dl (2) Cat bite Encounter type: initial encounter Qualified Code(s): W55.01XA - Bitten by cat, initial encounter
[2024-01-23 06:20] LABS: Calcium 8.8 mg/dl (8.6-10.3); Creatinine Clr Calc Pharmacy 69.5 ml/min; Est GFR (African American) 101.1 ml/min; Est GFR (Non-African American) 87.2 ml/min; Magnesium 1.6 mg/dl (1.7-2.4); Potassium 3.4 mmol/L (3.5-5.1)
[2024-01-23 06:28] LABS: Hematocrit (blood only) 32.4 % (42.0-52.0); Hemoglobin 11.2 g/dl (14.0-18.0); Mean Corpuscular Hemoglobin 30.5 pg (25.0-34.0); Mean Corpuscular Hgb Conc 34.6 g/dL (32.0-36.0); Mean Corpuscular Volume 88.3 fL (80.0-100.0); Mean Platelet Volume 11.7 fL (9.4-12.4); Platelet Count 163 K/uL (130-400); RDW Coefficient of Variation 15.4 % (11.5-14.5); RDW Standard Deviation 50.3 fL (36.4-46.3); Red Blood Count 3.67 M/uL (4.70-6.10)
[2024-01-23] MEDS: oxyCODONE/ACETAMINOPHEN 5mg/325mg TAB PO PRN (08:57)
[2024-01-23] MEDS: POTASSIUM CHLORIDE CRTAB 20 MEQ TABCR PO ONE (10:19)
[2024-01-23] MEDS: MAGNESIUM CHLORIDE W/CALCIUM 64MG DELAYED REL TAB PO SCH (10:19)
--- NOTE | 2024-01-23 13:13 | Orthopedic Progress Note ---
Date of Service January 23, 2024 Assessment & Plan (1) Cat bite: Plan: 78-year-old male with left dorsal forearm cat bite Elevate left upper extremity IV antibiotic therapy Pain control Medical management The MRI images were reviewed with the patient. At this time, there does not appear to be any surgical treatment necessary for his cellulitis. We discussed that IV antibiotic choice will be the most important to control infection and pain/swelling in the left upper extremity. Orthopedics will sign off at this time. Please reconsult if any symptoms change/worsen that would necessitate surgical treatment. Admission and Anticipated Discharge Date Admission Date: January 21, 2024 Subjective The patient states the left hand and arm swelling has not improved much over the past 2 days. States the IV pain medications seem to be controlling his pain. However, the pain gets quite severe when the medication seems to be wearing off. Physical Exam Constitutional: WD/WN, vitals as above no acute distress (Lying comfortably in bed with the left arm elevated on a pillow.) Musculoskeletal: Extremities: + elbow/forearm abnormality Left (Moderate to severe swelling of the left hand and forearm. Swelling extends to the MP joints of the fingers. No open or draining areas. Some tenderness at the dorsal aspect of the hand.) Skin: no rashes, warm and dry Neurologic: normal touch/pain/proprioception Psychiatric: A+Ox3, euthymic affect Speech: normal rate/rhythm/volume of sp eech Results & Data Vital Signs (Past 12 Hours) Vital Signs Temp Pulse Resp BP Pulse Ox O2 Del Method 01/23/24 11:09 36.7 C 113 H 18 122/82 96 Room Air 01/23/24 07:28 37.5 C 97 H 18 134/87 96 Room Air 01/23/24 03:21 37.2 C 105 H 22 131/92 96 Room Air Laboratory Results Laboratory Tests 01/23/24 05:28 WBC 9.70 Hgb 11.2 L Hct 32.4 L Plt Count 163 Sodium 136 Potassium 3.4 L Chloride 105 BUN 12 Creatinine 0.75 Diagnostic Findings The MRI images were independently reviewed and I reviewed the radiology report. There does not appear to be any fluid collection/abscess at the dorsal or volar aspect of the wrist. Soft tissue edema dorsal to the dorsal radial aspect of the distal radius. (1) Cat bite Encounter type: initial encounter Qualified Code(s): W55.01XA - Bitten by cat, initial encounter
--- NOTE | 2024-01-23 16:28 | Hospitalist Progress Note ---
Date of Service January 23, 2024 Assessment & Plan (1) Cellulitis of forearm, left: (2) Cat bite: (3) History of paroxysmal supraventricular tachycardia: (4) HTN (hypertension): (5) BPH (benign prostatic hyperplasia): (6) Hyperlipidemia: (7) GERD (gastroesophageal reflux disease): Plan Mr. Graham is a 78 y/o M was at his house feeding stray cats and one bit his left forearm yesterday between [id number]. His left forearm has a small superficial bite rebecca on the ventral aspect of his hand. He has erythema and swelling at the site with lymphangitis on the left dorsal forearm. He denies previous bites. He has seen this cat before and has fed it before, but it lives outside and is not domesticated. Mild leukocytosis WBC 11.15, lactate and procalcitonin normal. Otherwise electrolytes unremarkable.L Forearm x-ray indicates no osteomyelitis but soft tissue swelling; old ulnar styloid fracture noted. No retained foreign matter (tooth) noted. RIG x4 (R thigh x2, L thigh x1 and left forearm), rabies vaccine, and Tdap administered with initiation of Unasyn IV. 1L NS be administered. Patient will be admitted for further evaluation and management of forearm cellulitis and lymphangitis Obtain MRSA screen, blood cultures low yield but were obtained in ED, limb elevation, cover for staph with Unasyn and Ortho consult given location of bite/increased swelling around joint. Cellulitis of left wrist: Lymphangitis/Tenosynovitis s/p Cat bite -- Left forearm MRI:No acute bony abnormality is seen involving the forearm. There is evidence of cellulitis along the volar aspect of the distal forearm/wrist. No fluid collection is seen to suggest abscess. Findings suggest a nonspecific tenosynovitis of the extensor tendons of the wrist joint. 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 -- Blood cultures no growth to date --Negative MRSA screen -- Received Tdap, RIG plus rabies vaccine in ED Continue Unasyn --Received IV fluids Pain control Appreciate orthopedics input Elevate left upper extremity Conservative management per orthopedics Continue current management H/O PSVT HTN Continue metoprolol, terazosin, and lisinopril Follows with [facility] cardiology HLD: continue simvastatin BPH: continue terazosin GERD: continue PPI DVT Px: Lovenox SQ CODE STATUS: Full code Admission and Anticipated Discharge Date Admission Date: January 21, 2024 Subjective Patient is seen and examined at bedside Continues to have significant left upper extremity pain Left hand erythema, swelling slightly better clinically Denies any chest pain, dyspnea, dizziness, nausea, vomiting, abdominal pain No other complaints Review of Systems Review of Systems: All systems reviewed & are unremarkable except as noted in Subjective Physical Exam Physical Exam: Physical Exam: Vitals signs as noted above General Appearance:Moderately built and nourished, no apparent distress Head: normocephalic, Atraumatic Eyes: normal inspection, EOMI Neck: supple, Trachea midline Respiratory/Chest: Normal breath sounds, CTA, No accessory muscle use Cardiovascular: S1, S2, No murmur Abdomen/GI:Soft, Non tender, Bowel sounds present Extremities/Musculoskeletal:normal inspection, left upper extremity swelling, erythema, tender Neurologic/Psych:AAOX3, grossly no focal neurological deficits Skin: normal color, warm Results & Data Results & Data Vital Signs (Past 12 Hours) Vital Signs Temp Pulse Pulse Resp BP Pulse Ox Pulse Ox 01/23/24 15:10 77 01/23/24 15:00 98 01/23/24 14:58 113 H 01/23/24 11:09 36.7 C 113 H 18 122/82 96 01/23/24 07:28 37.5 C 97 H 18 134/87 96 O2 Del Method O2 Del Method 01/23/24 15:10 01/23/24 15:00 Room Air 01/23/24 14:58 01/23/24 11:09 Room Air 01/23/24 07:28 Room Air Laboratory Results Short CBC 01/23/24 Range/Units 05:28 WBC 9.70 (4.8-10.8) K/ul Hgb 11.2 L (14.0-18.0) g/dl Hct 32.4 L (42.0-52.0) % Plt Count 163 (130-400) K/uL BMP 01/23/24 05:28 Sodium 136 Potassium 3.4 L Chloride 105 Carbon Dioxide 25 BUN 12 Creatinine 0.75 Glucose 117 H Calcium 8.8 (2) Cat bite Encounter type: initial encounter Qualified Code(s): W55.01XA - Bitten by cat, initial encounter
[2024-01-23] MEDS: POLYETHYLENE (MIRALAX) 17 GM PACK PO PRN (20:59)
[2024-01-24] MEDS: oxyCODONE HCL IR 5 MG TAB (IMMEDIATE RELEASE) PO STA (00:31)
[2024-01-24] MEDS: METOPROLOL SUCC 25MG EXT REL TAB PO STA (00:32)
[2024-01-24 07:20] LABS: Hematocrit (blood only) 31.6 % (42.0-52.0); Hemoglobin 10.4 g/dl (14.0-18.0); Mean Corpuscular Hemoglobin 30.1 pg (25.0-34.0); Mean Corpuscular Hgb Conc 32.9 g/dL (32.0-36.0); Mean Corpuscular Volume 91.3 fL (80.0-100.0); Mean Platelet Volume 11.2 fL (9.4-12.4); Platelet Count 163 K/uL (130-400); RDW Coefficient of Variation 15.4 % (11.5-14.5); RDW Standard Deviation 51.1 fL (36.4-46.3); Red Blood Count 3.46 M/uL (4.70-6.10); White Blood Count 7.88 K/ul (4.8-10.8)
[2024-01-24 07:55] LABS: BUN Creatinine Ratio 14.3 (10-20); Calcium 9.1 mg/dl (8.6-10.3); Creatinine Clr Calc Pharmacy 74.4 ml/min; Est GFR (Non-African American) 89.8 ml/min; Potassium 4.4 mmol/L (3.5-5.1)
[2024-01-24] MEDS: METOPROLOL SUCC 25MG EXT REL TAB PO SCH (08:09)
--- NOTE | 2024-01-24 15:51 | Hospitalist Progress Note ---
Date of Service January 24, 2024 Assessment & Plan (1) Cellulitis of forearm, left: (2) Cat bite: (3) History of paroxysmal supraventricular tachycardia: (4) HTN (hypertension): (5) BPH (benign prostatic hyperplasia): (6) Hyperlipidemia: (7) GERD (gastroesophageal reflux disease): Plan Mr. Graham is a 78 y/o M was at his house feeding stray cats and one bit his left forearm yesterday between [id number]. His left forearm has a small superficial bite rebecca on the ventral aspect of his hand. He has erythema and swelling at the site with lymphangitis on the left dorsal forearm. He denies previous bites. He has seen this cat before and has fed it before, but it lives outside and is not domesticated. Mild leukocytosis WBC 11.15, lactate and procalcitonin normal. Otherwise electrolytes unremarkable.L Forearm x-ray indicates no osteomyelitis but soft tissue swelling; old ulnar styloid fracture noted. No retained foreign matter (tooth) noted. RIG x4 (R thigh x2, L thigh x1 and left forearm), rabies vaccine, and Tdap administered with initiation of Unasyn IV. 1L NS be administered. Patient will be admitted for further evaluation and management of forearm cellulitis and lymphangitis Obtain MRSA screen, blood cultures low yield but were obtained in ED, limb elevation, cover for staph with Unasyn and Ortho consult given location of bite/increased swelling around joint. Cellulitis of left wrist: Lymphangitis/Tenosynovitis s/p Cat bite -- Left forearm MRI:No acute bony abnormality is seen involving the forearm. There is evidence of cellulitis along the volar aspect of the distal forearm/wrist. No fluid collection is seen to suggest abscess. Findings suggest a nonspecific tenosynovitis of the extensor tendons of the wrist joint. 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 -- Blood cultures no growth to date --Negative MRSA screen -- Received Tdap, RIG plus rabies vaccine in ED Continue Unasyn --Received IV fluids Pain control Appreciate orthopedics input Elevate left upper extremity Conservative management per orthopedics Slowly improving Transfer to medical floor Advised to minimize IV narcotics as able H/O PSVT HTN Continue metoprolol, terazosin, and lisinopril Follows with [facility] cardiology HLD: continue simvastatin BPH: continue terazosin GERD: continue PPI DVT Px: Lovenox SQ CODE STATUS: Full code Admission and Anticipated Discharge Date Admission Date: January 21, 2024 Subjective Patient is seen and examined at bedside Left upper extremity pain slowly improving Offers no new complaints Left hand erythema, swelling slowly improving Denies any chest pain, dyspnea, dizziness, nausea, vomiting, abdominal pain Review of Systems Review of Systems: All systems reviewed & are unremarkable except as noted in Subjective Physical Exam Physical Exam: Physical Exam: Vitals signs as noted above General Appearance:Moderately built and nourished, no apparent distress Head: normocephalic, Atraumatic Eyes: normal inspection, EOMI Neck: supple, Trachea midline Respiratory/Chest: Normal breath sounds, CTA, No accessory muscle use Cardiovascular: S1, S2, No murmur Abdomen/GI:Soft, Non tender, Bowel sounds present Extremities/Musculoskeletal:normal inspection, left upper extremity swelling, erythema, tender Neurologic/Psych:AAOX3, grossly no focal neurological deficits Skin: normal color, warm Results & Data Results & Data Vital Signs (Past 12 Hours) Vital Signs Temp Pulse Pulse Resp BP Pulse Ox O2 Del Method 01/24/24 14:48 36.8 C 98 H 18 154/98 H 99 Room Air 01/24/24 11:59 36.9 C 79 18 114/75 97 Room Air 01/24/24 08:00 69 01/24/24 07:37 36.9 C 83 18 128/84 96 Room Air Laboratory Results Short CBC 01/24/24 Range/Units 06:50 WBC 7.88 (4.8-10.8) K/ul Hgb 10.4 L (14.0-18.0) g/dl Hct 31.6 L (42.0-52.0) % Plt Count 163 (130-400) K/uL BMP 01/24/24 06:50 Sodium 138 Potassium 4.4 D Chloride 106 Carbon Dioxide 29 BUN 10 Creatinine 0.70 Glucose 106 H Calcium 9.1 (2) Cat bite Encounter type: initial encounter Qualified Code(s): W55.01XA - Bitten by cat, initial encounter
[2024-01-24] MEDS: MAGNESIUM HYDROXIDE SUSP 30 ML UDC PO PRN (17:30)
--- NOTE | 2024-01-25 05:41 | Communication Note ---
Date of Service: January 25, 2024 Patient with worsening left hand/forearm swelling AP Cat bite cellulitis, left upper extremity Worsening symptoms Rule out abscess CT hand/forearm N.p.o. until CT resulted
[2024-01-25] MEDS: MoRPHine SULFATE 4 MG/ML 1 ML CARP\\VIAL IV PRN (05:49)
[2024-01-25] MEDS: ACETAMINOPHEN 1,000 MG/100 ML VIAL IV STA (06:17)
[2024-01-25 06:18] LABS: BUN Creatinine Ratio 17.2 (10-20); Calcium 9.1 mg/dl (8.6-10.3); Creatinine Clr Calc Pharmacy 59.9 ml/min; Est GFR (African American) 95.1 ml/min; Est GFR (Non-African American) 82.1 ml/min; Magnesium 1.9 mg/dl (1.7-2.4); Potassium 3.8 mmol/L (3.5-5.1)
[2024-01-25] MEDS: OPTIRAY 320 100ml IV ONE (06:54)
--- NOTE | 2024-01-25 07:25 | CT Scan Report ---
CT forearm LT w con CT DOSE: 255.08 mGy.cm CLINICAL HISTORY: worsening swelling . Left forearm swelling. Cat bite. TECHNIQUE: Multiaxial CT images of the left forearm were performed following the intravenous administ ration of contrast and reformatted in the sagittal and coronal plane. A dose lowering technique was utilized adhering to the principles of ALARA. COMPARISON STUDY: Left forearm MRI 01/22/2024. FINDINGS: No fracture or dislocation within the left forearm. No destructive changes to suggest an os teomyelitis. Subcutaneous edema throughout the left forearm. No loculated fluid collections to sugges t an abscess. No soft tissue masses or lymphadenopathy. Evaluation of the left hand/wrist is better a ppreciated on the same day left hand CT. Suggestion of a small effusion within the left wrist and lef t elbow, unchanged. There is an old ulnar styloid fracture, unchanged. IMPRESSION: 1. Subcutaneous edema throughout the left forearm which could represent a cellulitis. This is similar to the prior study. 2. Small effusions within the elbow and wrist, unchanged. 3. No loculated fluid collections to suggest an abscess. 4. No evidence for osteomyelitis. ACT 112: Negative or not required by law. Electronically signed by: Reginaldo Paige M.D. 01/25/2024 7:23 AM
--- NOTE | 2024-01-25 07:32 | CT Scan Report ---
LEFT HAND CT WITH CONTRAST CLINICAL HISTORY: Worsening swelling. COMPARISON STUDY: Left forearm radiographs January 21, 2024. Left forearm MRI January 22, 2024. TECHNIQUE: Axial images of the left hand and wrist were obtained following intravenous injection of 8 9 cc of Optiray 320 IV. Sagittal and coronal reconstructions were viewed. Automated exposure control was utilized for the study. A dose lowering technique was utilized adhering to the principles of ALA RA. FINDINGS: Please note that the left forearm CT will be reported separately. Well-corticated ossicle a long the ulnar styloid indicates old injury. There is no acute fracture within the left hand. No bony erosions within the left hand are identified. There is no soft tissue gas within the left forearm. D istal left forearm and wrist soft tissue swelling is present. No rim-enhancing fluid collection is pr esent within the left hand. A small wrist joint effusion is present mild synovial thickening. No radi opaque foreign bodies are identified. 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 IMPRESSION: 1. Left forearm and wrist soft tissue swelling consistent with cellulitis. No rim-enhancing fluid col lection to suggest abscess. No soft tissue gas. No radiopaque foreign bodies. 2. Small left wrist joint effusion with mild synovial thickening and enhancement. This joint effusion is nonspecific. ACT 112: Negative or not required by law. Electronically signed by: Antolin Mcneal M.D. 01/25/2024 7:30 AM
[2024-01-25] MEDS: oxyCODONE HCL IR 5 MG TAB (IMMEDIATE RELEASE) PO PRN ×2 (09:46→19:22)
[2024-01-25] MEDS: DOCUSATE SODIUM/SENNA 50/8.6MG TAB PO SCH (11:06)
[2024-01-25] MEDS: POLYETHYLENE (MIRALAX) 17 GM PACK PO SCH (11:07)
[2024-01-25] MEDS: bisacodyL 5 MG TABEC PO ONE (11:07)
[2024-01-25] MEDS: IBUPROFEN 600 MG TAB PO SCH (11:42)
--- NOTE | 2024-01-25 12:16 | Hospitalist Progress Note ---
Date of Service January 25, 2024 Assessment & Plan (1) Cellulitis of forearm, left: (2) Cat bite: (3) History of paroxysmal supraventricular tachycardia: (4) HTN (hypertension): (5) BPH (benign prostatic hyperplasia): (6) Hyperlipidemia: (7) GERD (gastroesophageal reflux disease): Plan Mr. Graham is a 78 y/o M was at his house feeding stray cats and one bit his left forearm yesterday between [id number]. His left forearm has a small superficial bite rebecca on the ventral aspect of his hand. He has erythema and swelling at the site with lymphangitis on the left dorsal forearm. He denies previous bites. He has seen this cat before and has fed it before, but it lives outside and is not domesticated. Mild leukocytosis WBC 11.15, lactate and procalcitonin normal. Otherwise electrolytes unremarkable.L Forearm x-ray indicates no osteomyelitis but soft tissue swelling; old ulnar styloid fracture noted. No retained foreign matter (tooth) noted. RIG x4 (R thigh x2, L thigh x1 and left forearm), rabies vaccine, and Tdap administered with initiation of Unasyn IV. 1L NS be administered. Patient will be admitted for further evaluation and management of forearm cellulitis and lymphangitis Obtain MRSA screen, blood cultures low yield but were obtained in ED, limb elevation, cover for staph with Unasyn and Ortho consult given location of bite/increased swelling around joint. Cellulitis of left wrist: Lymphangitis/Tenosynovitis s/p Cat bite -- Left forearm MRI:No acute bony abnormality is seen involving the forearm. There is evidence of cellulitis along the volar aspect of the distal forearm/wrist. No fluid collection is seen to suggest abscess. Findings suggest a nonspecific tenosynovitis of the extensor tendons of the wrist joint. 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 -- Blood cultures no growth to date --Negative MRSA screen -- Received Tdap, RIG plus rabies vaccine in ED Continue Unasyn --Received IV fluids Pain control Appreciate orthopedics input Elevate left upper extremity Conservative management per orthopedics Slowly improving but with persistent swelling, worsened pain and decreased sen sation to distal fingers Will reconsult orthopedics to re eval repeat CT scan 1. Left forearm and wrist soft tissue swelling consistent with cellulitis. No rim-enhancing fluid collection to suggest abscess. No soft tissue gas. No radiopaque foreign bodies.2. Small left wrist joint effusion with mild synovial thickening and enhancement. This joint effusion is nonspecific. Schedule alternating ibuprofen and tylenol Encouraged pt to elevate and be compliant with ICE TID H/O PSVT HTN Continue metoprolol, terazosin, and lisinopril [facility] cardiology HLD: continue simvastatin BPH: continue terazosin GERD: continue PPI Bowel Regimen Miralax and senna S added dulcolax x 1 now BM afternoon on 01/24 DVT Px: Lovenox SQ CODE STATUS: Full code Dispo: not yet medically stable for discharge PCP: Paul Lyn A total of 50 minutes was spent coordinating, documenting, and providing care for this patient excluding time spent in the performance of separately billed services. This included personally viewing all current laboratories and imaging studies, medication reconciliation, outpatient chart review, and discussion with specialists. Admission and Anticipated Discharge Date Admission Date: January 21, 2024 Supervising Physician Co-Signing Physician Notes Patient was not evaluated by me on 01/25/2024. Patient being managed by advanced practice provider. Subjective Patient has been seen and evaluated in 377. Follow-up cat bite. Patient is upset as he feels like his symptoms should be improving. He feels his pain in his left forearm and wrist are worse and the swelling is worse. He cannot believe he still has to be here and hasn't had improvement. He denies f/c/s, chest pain, sob, n/v/d. He has not had a BM yet. Review of Systems Review of Systems: All systems reviewed & are unremarkable except as noted in HPI & below Physical Exam Physical Exam: Gen: WD/WN, M, sitting up in bed, NAD, A&O x3 HEENT: Normocephalic, atraumatic, conjunctivae moist, sclerae anicteric, mucous membranes moist. Lung: Clear to Auscultation bilaterally, no wheezes/rales/rhonchi Heart: Regular rate, regular rhythm, no murmurs, rubs, or gallops Abdomen: Soft, NT, ND +BS x 4 Extremities: L wrist/volar forearm tenosynovitis, warm to touch, erythema minimal, minimal hand ROM. Skin: Warm, no rash, negative turgor. Results & Data Results & Data Vital Signs (Past 12 Hours) Vital Signs Temp Pulse Resp BP Pulse Ox O2 Del Method 01/25/24 07:43 37.1 C 93 H 14 146/91 H 95 Room Air Diagnostic Findings Forearm CT 01/25/24 05:39 CT forearm LT w con CT DOSE: 255.08 mGy.cm CLINICAL HISTORY: worsening swelling . Left forearm swelling. Cat bite. TECHNIQUE: Multiaxial CT images of the left forearm were performed following the intravenous administration of contrast and reformatted in the sagittal and coronal plane. A dose lowering technique was utilized adhering to the principles of ALARA. COMPARISON STUDY: Left forearm MRI 01/22/2024. FINDINGS: No fracture or dislocation within the left forearm. No destructive changes to suggest an osteomyelitis. Subcutaneous edema throughout the left forearm. No loculated fluid collections to suggest an abscess. No soft tissue masses or lymphadenopathy. Evaluation of the left hand/wrist is better appreciated on the same day left hand CT. Suggestion of a small effusion within the left wrist and left elbow, unchanged. There is an old ulnar styloid fracture, unchanged. IMPRESSION: 1. Subcutaneous edema throughout the left forearm which could represent a cellulitis. This is similar to the prior study. 2. Small effusions within the elbow and wrist, unchanged. 3. No loculated fluid collections to suggest an abscess. 4. No evidence for osteomyelitis. ACT 112: Negative or not required by law. Electronically signed by: Reginaldo Paige M.D. 01/25/2024 7:[address] 01/25/24 05:[address] WITH CONTRAST CLINICAL HISTORY: Worsening swelling. COMPARISON STUDY: Left forearm radiographs January 21, 2024. Left forearm MRI January 22, 2024. TECHNIQUE: Axial images of the left hand and wrist were obtained following intravenous injection of 89 cc of Optiray 320 IV. Sagittal and coronal reconstructions were viewed. Automated exposure control was utilized for the study. A dose lowering technique was utilized adhering to the principles of ALARA. FINDINGS: Please note that the left forearm CT will be reported separately. Well-corticated ossicle along the ulnar styloid indicates old injury. There is no acute fracture within the left hand. No bony erosions within the left hand are identified. There is no soft tissue gas within the left forearm. Distal left forearm and wrist soft tissue swelling is present. No rim-enhancing fluid collection is present within the left hand. A small wrist joint effusion is present mild synovial thickening. No radiopaque foreign bodies are identified. 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 IMPRESSION: 1. Left forearm and wrist soft tissue swelling consistent with cellulitis. No rim-enhancing fluid collection to suggest abscess. No soft tissue gas. No radiopaque foreign bodies. 2. Small left wrist joint effusion with mild synovial thickening and enhancement. This joint effusion is nonspecific. ACT 112: Negative or not required by law. Electronically signed by: Antolin Mcneal M.D. 01/25/2024 7:30 AM Medications Administered Current Inpatient Medications Acetaminophen (Acetaminophen 325 Mg Tab) 650 mg PO Q4H PRN PRN Reason: Pain or Fever Stop: 02/20/24 11:42 Last Admin: 01/25/24 11:05 Dose: 650 mg Acetaminophen (Acetaminophen 500 Mg Tab) 1,000 mg PO Q8H [facility] Stop: 02/24/24 13:59 Al Hydrox/Mg Hydrox/Simethicone (Aluminum/Magnesium Susp 30 Ml Udc) 15 ml PO Q4H PRN PRN Reason: Dyspepsia Stop: 02/20/24 11:42 Aspirin (Aspirin 81 Mg Ectab) 81 mg PO DAILY [facility] Stop: 02/21/24 08:59 Last Admin: 01/25/24 07:47 Dose: 81 mg Enoxaparin Sodium (Enoxaparin Inj 40 Mg/0.4 Ml Syr) 40 mg SQ QAM [facility] Stop: 02/21/24 08:59 Last Admin: 01/25/24 07:48 Dose: 40 mg Finasteride (Finasteride 5 Mg Tab) 5 mg PO QAM [facility]; Protocol Stop: 02/21/24 08:59 Last Admin: 01/25/24 07:48 Dose: 5 mg Hydralazine HCl (Hydralazine 10 Mg Tab) 10 mg PO Q8H PRN PRN Reason: Hypertension SBP>180orDBP>100 Stop: 02/23/24 18:44 Ampicillin Sodium/Sulbactam Sodium 3,000 mg/ Sodium Chloride 100 mls @ 100 mls/hr IV Q6H [facility] Stop: 01/28/24 15:59 Last Infusion: 01/25/24 10:44 Dose: Infused Ibuprofen (Ibuprofen 600 Mg Tab) 600 mg PO Q8H [facility] Stop: 02/24/24 11:59 Last Admin: 01/25/24 11:42 Dose: 600 mg Lisinopril (Lisinopril 10 Mg Tab) 30 mg PO QAM [facility] Stop: 02/21/24 08:59 Last Admin: 01/25/24 07:47 Dose: 30 mg Magnesium Chloride (Magnesium Chloride W/Calcium 64mg Delayed Rel Tab) 64 mg PO BID [facility] Stop: 02/22/24 09:14 Last Admin: 01/25/24 09:11 Dose: 64 mg Magnesium Hydroxide (Magnesium Hydroxide Susp 30 Ml Udc) 30 ml PO Q12H PRN PRN Reason: Constipation Stop: 02/20/24 11:42 Last Admin: 01/24/24 17:30 Dose: 30 ml Metoprolol Succinate (Metoprolol Succ 25mg Ext Rel Tab) [facility] [place]: 02/24/24 08:59 Last Admin: 01/25/24 07:47 Dose: 25 mg Morphine Sulfate (Morphine Sulfate 4 Mg/Ml 1 Ml Carp\Vial) 4 mg IV Q4H PRN PRN Reason: Severe Pain (Scale 7, 8, 9,10) Stop: 02/08/24 05:46 Last Admin: 01/25/24 05:49 Dose: 4 mg Ondansetron HCl (Ondansetron Inj 2 Mg/Ml 2 Ml Vial) 4 mg IV Q6H PRN PRN Reason: Nausea Stop: 02/20/24 11:42 Oxybutynin Chloride (Oxybutynin Chloride 5 Mg Tab) 10 mg PO BID [facility] Stop: 02/20/24 20:59 Last Admin: 01/25/24 07:47 Dose: 10 mg Oxycodone HCl (Oxycodone Hcl Ir 5 Mg Tab (Immediate Release)) 5 mg PO Q4H PRN PRN Reason: Moderate Pain (Scale 4, 5, 6) Stop: 02/08/24 05:37 Pantoprazole Sodium (Pantoprazole 40 Mg Tab) 40 mg PO [facility]; Protocol Stop: 02/21/24 08:59 Last Admin: 01/25/24 07:47 Dose: 40 mg Polyethylene Glycol (Polyethylene (Miralax) 17 Gm Pack) 17 gm PO DAILY [facility] Stop: 02/24/24 10:29 Last Admin: 01/25/24 11:07 Dose: 17 gm Senna/Docusate Sodium (Docusate Sodium/Senna 50/8.6mg Tab) 1 tab PO BID [facility] Stop: 02/24/24 10:29 Last Admin: 01/25/24 11:06 Dose: 1 tab Simvastatin (Simvastatin 40 Mg Tab) 40 mg PO [facility] Stop: 02/20/24 20:59 Last Admin: 01/24/24 20:47 Dose: 40 mg Terazosin HCl (Terazosin Hcl 5 Mg Cap) 5 mg PO [facility] Stop: 02/20/24 20:59 Last Admin: 01/24/24 20:45 Dose: 5 mg (2) Cat bite Encounter type: initial encounter Qualified Code(s): W55.01XA - Bitten by cat, initial encounter
[2024-01-25] MEDS: ACETAMINOPHEN 500 MG TAB PO SCH (13:37)
--- NOTE | 2024-01-25 18:25 | Consultation ---
Date of Consultation January 25, 2024 Assessment & Plan (1) Cat bite: 78-year-old male with left dorsal forearm cat bite At this point in time I do not see any obvious surgical indications, but would like to rule out a fluid collection in the region of the carpal tunnel and/or radiocarpal joint and/or distal radial ulnar joint. My recommendation is a high-quality MRI which is coned-down and focused on the wrist joint itself. The previous CAT scan and MRI are fairly nondiagnostic and not very sensitive to picking supervisor any small fluid collection given that the MRI is not focused on the wrist. Will order new CAT scan. At this point the patient may have a diet. We will review the MRI results. History of Present Illness Requesting Physician: Hospitalist Reason for Consultation: Continued infection left upper extremity Attending Physician: Tico Coker MD Allergies Allergy/AdvReac Type Severity Reaction Status Date / Time No Known Allergies Allergy Verified 05/18/22 13:52 Home Medications Medication Instructions Recorded Confirmed Type dutasteride 0.5 mg capsule 0.5 mg PO QAM 07/20/19 01/21/24 History lisinopril 30 mg tablet 30 mg PO QAM 07/20/19 01/21/24 History omeprazole 40 mg capsule,delayed 40 mg PO QAM 07/20/19 01/21/24 History release oxybutynin chloride 5 mg tablet 5 mg PO BID 07/20/19 01/21/24 History simvastatin 40 mg tablet 40 mg PO HS 07/20/19 01/21/24 History terazosin 5 mg capsule 5 mg PO HS 07/20/19 01/21/24 History aspirin 81 mg tablet,delayed 81 mg PO DAILY 05/14/22 01/21/24 History release metoprolol succinate 25 mg 25 mg PO QAM 05/14/22 01/21/24 History tablet,extended release 24 hr Patient History Medical History History of paroxysmal supraventricular tachycardia Encounter for pre-operative examination Ureterolithiasis Chronic back pain neck- cant turn side to side very well. up and down is ok BPH (benign prostatic hyperplasia) Diverticular disease has had in past GERD (gastroesophageal reflux disease) Hearing deficit Cardiac murmur doesnt follow with anyone DX As CHILD Hypertension Hyperlipidemia Surgical History History of ingrown nail LEFT FOOT WITH REPAIR History of deviated nasal septum with repair History of colonoscopy Hx of hernia repair Social History Smoking Status: Never smoker Cigarettes Per Day: 15; Second Hand Exposure: Yes; Do You Dip or Chew Tobacco: No; Hx Alcohol Use: Yes Alcohol type: beer and hard liquor Hx Substance Use: No Preferred Language: Georgian Communication Ability: Effective 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 He does have some mild pain with extension of the wrist and fingers and some swelling in the region of the carpal tunnel. I do not detect any fluctuance, abscess or gross purulent drainage. He has negative Knavel signs in the fingers. Results & Data Vital Signs (Past 12 Hours) Vital Signs Temp Pulse Resp BP Pulse Ox O2 Del Method 01/25/24 14:58 36.8 C 74 16 124/74 96 Room Air 01/25/24 07:43 37.1 C 93 H 14 146/91 H 95 Room Air Diagnostic Findings I reviewed CAT scan which shows no evidence of rim-enhancing lesion or abscess. I reviewed MRI of the forearm which does not show any evidence of abscess or significant fluid collection. However MRI is very nondiagnostic as it is not coned down on the wrist and extends from the fingertips to the elbow and is very low resolution. (1) Cat bite Encounter type: initial encounter Qualified Code(s): W55.01XA - Bitten by cat, initial encounter
[2024-01-25] MEDS: GADOBUTROL 65ML VIAL IV ONE (23:17)
--- NOTE | 2024-01-26 01:12 | Magnetic Resonance Report ---
Exam(s): MRI LEFT WRIST W/WO Contrast IV Amt: 7.2cc gadavist EXAM: MR Left Upper Extremity Without and With Intravenous Contrast, Wrist CLINICAL HISTORY: Reason for exam: r/o infection in wrist and carpal tunnel. TECHNIQUE: Multiplanar magnetic resonance images of the left wrist without and with intravenous contrast. CONTRAST: Patient received 7.2cc gadavist of IV contrast COMPARISON: No relevant prior studies available. FINDINGS: Tear of the scapholunate ligament. No widening of the scapholunate interval. Degeneration of the central disc of the triangular fiber cartilage. Old fracture at the base of the ulnar styloid, with ununited fracture fragment measuring 7 x 8 mm. No acute fracture or subluxation. Severe osteoarthritis with the carpus, consisting of grade 4 chondral degeneration and subchondral cystic changes/sclerosis. Qovw-ds-tmal articulation of the first CMC with osteophytic spurring of the trapezium and base of the first metacarpal. Moderate dorsal capsule synovitis. Moderate synovitis along the volar radiocarpal eccentric ligaments. Severe synovitis in the carpal tunnel. Normal size and signal intensity median nerve. Circumferential subcutaneous edema. Normal carpal alignment. IMPRESSION: Severe synovitis in the carpal tunnel. Circumferential subcutaneous edema. Severe osteoarthritis with the carpus, as described. Moderate dorsal capsule synovitis. Moderate synovitis along the volar radiocarpal eccentric ligaments. Tear of the scapholunate ligament. No widening of the scapholunate interval. Degeneration of the central disc of the triangular fiber cartilage. Old fracture at the base of the ulnar styloid, with ununited fracture fragment measuring 7 x 8 mm. Electronically signed by: William Norman MD 01/26/24 01:11 AM
[2024-01-26 08:21] LABS: Hematocrit (blood only) 30.7 % (42.0-52.0); Hemoglobin 10.3 g/dl (14.0-18.0); Mean Corpuscular Hemoglobin 30.8 pg (25.0-34.0); Mean Corpuscular Hgb Conc 33.6 g/dL (32.0-36.0); Mean Corpuscular Volume 91.9 fL (80.0-100.0); Mean Platelet Volume 10.4 fL (9.4-12.4); Platelet Count 189 K/uL (130-400); RDW Coefficient of Variation 14.9 % (11.5-14.5); RDW Standard Deviation 50.2 fL (36.4-46.3); Red Blood Count 3.34 M/uL (4.70-6.10); White Blood Count 6.58 K/ul (4.8-10.8)
[2024-01-26 08:41] LABS: Potassium 4.8 mmol/L (3.5-5.1)
[2024-01-26 08:42] LABS: BUN Creatinine Ratio 17.4 (10-20); Calcium 9.1 mg/dl (8.6-10.3); Creatinine Clr Calc Pharmacy 56.6 ml/min; Est GFR (African American) 91.4 ml/min; Est GFR (Non-African American) 78.8 ml/min; Magnesium 2.3 mg/dl (1.7-2.4)
--- NOTE | 2024-01-26 10:40 | Anesthesiology Consultation ---
Date of Service January 26, 2024 Assessment & Plan Chart Review Chart Review: Acceptable Risk for Surgery and Patient NOT seen in Pre Admission Testing History Surgery Operation Date: 01/26/24 10:30 Proposed Procedures p Left Wrist Carpal Tunnel Release - Logan Carreon MD s Incision and Drainage Flexor Tenosynovitis - Logan Carreon MD Height/Weight Height: 5 ft 5 in Weight: 72.6 kg Allergies Allergy/AdvReac Type Severity Reaction Status Date / Time No Known Allergies Allergy Verified 05/18/22 13:52 Medications Home Medications Medication Instructions Recorded Confirmed Last Taken dutasteride 0.5 mg capsule 0.5 mg PO QAM 07/20/19 01/21/24 05/14/22 lisinopril 30 mg tablet 30 mg PO QAM 07/20/19 01/21/24 05/14/22 omeprazole 40 mg capsule,delayed 40 mg PO QAM 07/20/19 01/21/24 05/14/22 release oxybutynin chloride 5 mg tablet 5 mg PO BID 07/20/19 01/21/24 05/14/22 08:00 simvastatin 40 mg tablet 40 mg PO HS 07/20/19 01/21/24 05/13/22 terazosin 5 mg capsule 5 mg PO HS 07/20/19 01/21/24 05/13/22 aspirin 81 mg tablet,delayed 81 mg PO DAILY 05/14/22 01/21/24 05/14/22 release metoprolol succinate 25 mg 25 mg PO QAM 05/14/22 01/21/24 05/14/22 tablet,extended release 24 hr Active Medications Generic Name Dose Route Start Last Admin Trade Name Alfq PRN Reason Stop Dose Admin Acetaminophen 650 mg 01/21/24 11:43 01/25/24 11:05 Acetaminophen 325 Mg Tab PO 02/20/24 11:42 650 mg Q4H PRN Administration Pain or Fever Acetaminophen 1,000 mg 01/25/24 14:00 01/26/24 05:15 Acetaminophen 500 Mg Tab PO 02/24/24 13:59 1,000 mg Q8H ST[facility]IE Administration Aspirin 81 mg 01/22/24 09:00 01/26/24 08:34 Aspirin 81 Mg Ectab PO 02/21/24 08:59 81 mg DAILY ST[facility]IE Administration Enoxaparin Sodium 40 mg 01/22/24 09:00 01/25/24 07:48 Enoxaparin Inj 40 Mg/0.4 Ml Syr SQ 02/21/24 08:59 40 mg QAM ST[facility]IE Administration Finasteride 5 mg 01/22/24 09:00 01/26/24 08:33 Finasteride 5 Mg Tab PO 02/21/24 08:59 5 mg QAM STEFANIE Administration Protocol Ampicillin Sodium/Sulbactam 100 mls @ 100 mls/hr 01/21/24 16:00 01/26/24 10:05 Sodium 3,000 mg/ Sodium IV 01/28/24 15:59 100 mls/hr Chloride Q6H [facility] Administration Ibuprofen 600 mg 01/25/24 12:00 01/26/24 03:46 Ibuprofen 600 Mg Tab PO 02/24/24 11:59 600 mg Q8H ST[facility]IE Administration Lisinopril 30 mg 01/22/24 09:00 01/26/24 08:34 Lisinopril 10 Mg Tab PO 02/21/24 08:59 30 mg QAM ST[facility]ANIE Administration Magnesium Chloride 64 mg 01/23/24 09:15 01/26/24 08:33 Magnesium Chloride W/Calcium 64mg Delayed Rel Tab PO 02/22/24 09:14 64 mg BID STEFANIE Administration Magnesium Hydroxide 30 ml 01/21/24 11:43 01/24/24 17:30 Magnesium Hydroxide Susp 30 Ml Udc PO 02/20/24 11:42 30 ml Q12H PRN Administration Constipation Metoprolol Succinate 25 mg 01/25/24 09:00 01/26/24 08:33 Metoprolol Succ 25mg Ext Rel Tab PO 02/24/24 08:59 25 mg QAM [facility] Administration Morphine Sulfate 4 mg 01/25/24 05:47 01/25/24 23:36 Morphine Sulfate 4 Mg/Ml 1 Ml Carp\Vial IV 02/08/24 05:46 4 mg Q4H PRN Administration Severe Pain (Scale 7, 8, 9,10) Oxybutynin Chloride 10 mg 01/21/24 21:00 01/26/24 08:33 Oxybutynin Chloride 5 Mg Tab PO 02/20/24 20:59 10 mg BID ST[facility]IE Administration Oxycodone HCl 5 mg 01/25/24 10:22 01/26/24 10:08 Oxycodone Hcl Ir 5 Mg Tab (Immediate Release) PO 02/08/24 05:37 5 mg Q4H PRN Administration Moderate Pain (Scale 4, 5, 6) Pantoprazole Sodium 40 mg 01/22/24 09:00 01/26/24 08:34 Pantoprazole 40 Mg Tab PO 02/21/24 08:59 40 mg QAM ST[facility]IE Administration Protocol Polyethylene Glycol 17 gm 01/25/24 10:30 01/26/24 08:34 Polyethylene (Miralax) 17 Gm Pack PO 02/24/24 10:29 Not Given DAILY [facility] Senna/Docusate Sodium 1 tab 01/25/24 10:30 01/26/24 08:34 Docusate Sodium/Senna 50/8.6mg Tab PO 02/24/24 10:29 1 tab BID ST[facility]IE Administration Simvastatin 40 mg 01/21/24 21:00 01/25/24 20:56 Simvastatin 40 Mg Tab PO 02/20/24 20:59 40 mg HS ST[facility]ANIE Administration Terazosin HCl 5 mg 01/21/24 21:00 01/25/24 20:57 Terazosin Hcl 5 Mg Cap PO 02/20/24 20:59 5 mg HS ST[facility]IE Administration Past Medical History Medical History History of paroxysmal supraventricular tachycardia Encounter for pre-operative examination Ureterolithiasis Chronic back pain neck- cant turn side to side very well. up and down is ok BPH (benign prostatic hyperplasia) Diverticular disease has had in past GERD (gastroesophageal reflux disease) Hearing deficit Cardiac murmur doesnt follow with anyone DX As CHILD Hypertension Hyperlipidemia Past Surgical History Surgical History History of ingrown nail LEFT FOOT WITH REPAIR History of deviated nasal septum with repair History of colonoscopy Hx of hernia repair Social History Smoking Status: Never smoker tobacco type: cigars Smoking cigarettes per day: 15 Do You Dip or Chew Tobacco: No Hx Alcohol Use: Yes Alcohol type: beer and hard liquor alcohol intake frequency: 3 or more drinks per day Hx Substance Use: No substance use type: marijuana Last Used Substance: Hours (ago) Last Used Substance Other:: DAILY USE Physical Exam Vital Signs Last Vital Signs Temp 36.6 C 01/25/24 20:47 Pulse 99 H 01/25/24 20:47 Resp 18 01/25/24 20:47 BP 134/87 01/25/24 20:47 Pulse Ox 98 01/25/24 20:47 O2 Del Method Room Air 01/25/24 20:47 Testing Laboratory Results 01/26/24 08:00 01/26/24 08:00 01/21/24 10:15 Aerobic Blood Culture - Preliminary Blood No growth in Aerobic bottle after 48 hours. Anaerobic Blood Culture - Preliminary No growth in Anaerobic bottle after 48 hours. 01/21/24 10:05 Aerobic Blood Culture - Preliminary Blood No growth in Aerobic bottle after 48 hours. Anaerobic Blood Culture - Preliminary No growth in Anaerobic bottle after 48 hours.
--- NOTE | 2024-01-26 10:57 | Hospitalist Progress Note ---
Date of Service January 26, 2024 Assessment & Plan (1) Cellulitis of forearm, left: (2) Cat bite: (3) History of paroxysmal supraventricular tachycardia: (4) HTN (hypertension): (5) BPH (benign prostatic hyperplasia): (6) Hyperlipidemia: (7) GERD (gastroesophageal reflux disease): Plan Mr. Graham is a 78 y/o M was at his house feeding stray cats and one bit his left forearm yesterday between [id number]. His left forearm has a small superficial bite rebecca on the ventral aspect of his hand. He has erythema and swelling at the site with lymphangitis on the left dorsal forearm. He denies previous bites. He has seen this cat before and has fed it before, but it lives outside and is not domesticated. Mild leukocytosis WBC 11.15, lactate and procalcitonin normal. Otherwise electrolytes unremarkable.L Forearm x-ray indicates no osteomyelitis but soft tissue swelling; old ulnar styloid fracture noted. No retained foreign matter (tooth) noted. RIG x4 (R thigh x2, L thigh x1 and left forearm), rabies vaccine, and Tdap administered with initiation of Unasyn IV. 1L NS be administered. Patient will be admitted for further evaluation and management of forearm cellulitis and lymphangitis Obtain MRSA screen, blood cultures low yield but were obtained in ED, limb elevation, cover for staph with Unasyn and Ortho consult given location of bite/increased swelling around joint. Cellulitis of left wrist: Lymphangitis/Tenosynovitis s/p Cat bite -- Left forearm MRI:No acute bony abnormality is seen involving the forearm. There is evidence of cellulitis along the volar aspect of the distal forearm/wrist. No fluid collection is seen to suggest abscess. Findings suggest a nonspecific tenosynovitis of the extensor tendons of the wrist joint. 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 -- Blood cultures no growth to date --Negative MRSA screen -- Received Tdap, RIG plus rabies vaccine in ED Continue Unasyn --Received IV fluids Pain control Appreciate orthopedics input Elevate left upper extremity Conservative management per orthopedics Slowly improving but with persistent swelling, worsened pain and decreased sensation to distal fingers Schedule alternating ibuprofen and tylenol Encouraged pt to elevate and be compliant with ICE TID Orthopedics reconsulted who ordered a repeat MRI Patient is currently n.p.o. and plan is to undergo left I&D of flexor tenosynovitis as well as carpal tunnel release today Rabies PEP received RIG plus vaccine on 01/20 which would be day 0 He will require additional rabies vaccination, will give additional rabies vaccine today as it was not given on day 3 Will need two additional doses, next on 01/27 and February 03 I did schedule dose for 01/27 in event patient is still in house H/O PSVT HTN Continue metoprolol, terazosin, and lisinopril Follows with [facility] cardiology HLD: continue simvastatin BPH: continue terazosin GERD: continue PPI Bowel Regimen Miralax and senna S added dulcolax x 1 now BM afternoon on 01/24 DVT Px: Lovenox SQ CODE STATUS: Full code Dispo: not yet medically stable for discharge PCP: Paul Lyn A total of 45 minutes was spent coordinating, documenting, and providing care for this patient excluding time spent in the performance of separately billed services. This included personally viewing all current laboratories and imaging studies, medication reconciliation, outpatient chart review, and discussion with specialists. Admission and Anticipated Discharge Date Admission Date: January 21, 2024 Supervising Physician Co-Signing Physician Notes Attending addendum: The patient was seen and examined in the medical floor His dorsal tenosynovitis of the left upper extremity has been worsening today Complains to more pain and swelling of the left upper extremity On examination Left forearm and hand are swollen with increased local temperature and tenderness Fingers are numb and movement is extremely painful Remains hemodynamically stable and is afebrile MRI did not show-severe tenosynovitis and will need I&D as per Ortho Reviewed his imaging studies, labs and medication Severe tenosynovitis of the left wrist status post cat bite :will go for I&D as per Ortho Agree with assessment plan as outlined above by Ashley Domínguez Subjective Patient was seen and examined in 377. Follow-up cat bite and flexor tenosynovitis. He continues to have significant swelling. He remains to have limited range of motion of left hand and digits. He continues to have decreased sensation in fingertips. He has been utilizing ice and elevating. He feels pain has improved over the last 24 hours. He underwent MRI last evening. He currently is NPO. Review of Systems Review of Systems: All systems reviewed & are unremarkable except as noted in HPI & below Physical Exam Physical Exam: Gen: WD/WN, M, sitting up in bed, NAD, A&O x3 HEENT: Normocephalic, atraumatic, conjunctivae moist, sclerae anicteric, mucous membranes moist. Lung: Clear to Auscultation bilaterally, no wheezes/rales/rhonchi Heart: Regular rate, regular rhythm, no murmurs, rubs, or gallops Abdomen: Soft, NT, ND +BS x 4 Extremities: L wrist/volar forearm tenosynovitis significant edema, warm to touch, erythema minimal, minimal hand ROM. Difficult palpating pulse in setting of significant edema. Skin: Warm, no rash, negative turgor. Results & Data Results & Data Laboratory Results Short CBC 01/26/24 Range/Units 08:00 WBC 6.58 (4.8-10.8) K/ul Hgb 10.3 L (14.0-18.0) g/dl Hct 30.7 L (42.0-52.0) % Plt Count 189 (130-400) K/uL BMP 01/26/24 08:00 Sodium 141 Potassium 4.8 D Chloride 105 Carbon Dioxide 29 BUN 16 Creatinine 0.92 Glucose 95 Calcium 9.1 Diagnostic Findings Wrist MRI 01/25/24 18:25 Exam(s): MRI LEFT WRIST W/WO Contrast IV Amt: 7.2cc gadavist EXAM: MR Left Upper Extremity Without and With Intravenous Contrast, Wrist CLINICAL HISTORY: Reason for exam: r/o infection in wrist and carpal tunnel. TECHNIQUE: Multiplanar magnetic resonance images of the left wrist without and with intravenous contrast. CONTRAST: Patient received 7.2cc gadavist of IV contrast COMPARISON: No relevant prior studies available. FINDINGS: Tear of the scapholunate ligament. No widening of the scapholunate interval. Degeneration of the central disc of the triangular fiber cartilage. Old fracture at the base of the ulnar styloid, with ununited fracture fragment measuring 7 x 8 mm. No acute fracture or subluxation. Severe osteoarthritis with the carpus, consisting of grade 4 chondral degeneration and subchondral cystic changes/sclerosis. [id number] articulation of the first CMC with osteophytic spurring of the trapezium and base of the first metacarpal. Moderate dorsal capsule synovitis. Moderate synovitis along the volar radiocarpal eccentric ligaments. Severe synovitis in the carpal tunnel. Normal size and signal intensity median nerve. Circumferential subcutaneous edema. Normal carpal alignment. IMPRESSION: Severe synovitis in the carpal tunnel. Circumferential subcutaneous edema. Severe osteoarthritis with the carpus, as described. Moderate dorsal capsule synovitis. Moderate synovitis along the volar radiocarpal eccentric ligaments. Tear of the scapholunate ligament. No widening of the scapholunate interval. Degeneration of the central disc of the triangular fiber cartilage. Old fracture at the base of the ulnar styloid, with ununited fracture fragment measuring 7 x 8 mm. Electronically signed by: William Norman MD 01/26/24 01:11 AM Medications Administered Current Inpatient Medications Acetaminophen (Acetaminophen 325 Mg Tab) 650 mg PO Q4H PRN PRN Reason: Pain or Fever Stop: 02/20/24 11:42 Last Admin: 01/25/24 11:05 Dose: 650 mg Acetaminophen (Acetaminophen 500 Mg Tab) 1,000 mg PO Q8H [facility] Stop: 02/24/24 13:59 Last Admin: 01/26/24 05:15 Dose: 1,000 mg Al Hydrox/Mg Hydrox/Simethicone (Aluminum/Magnesium Susp 30 Ml Udc) 15 ml PO Q4H PRN PRN Reason: Dyspepsia Stop: 02/20/24 11:42 Aspirin (Aspirin 81 Mg Ectab) 81 mg PO DAILY [facility] Stop: 02/21/24 08:59 Last Admin: 01/26/24 08:34 Dose: 81 mg Enoxaparin Sodium (Enoxaparin Inj 40 Mg/0.4 Ml Syr) [facility] [place] Stop: 02/21/24 08:59 Last Admin: 01/25/24 07:48 Dose: 40 mg Finasteride (Finasteride 5 Mg Tab) 5 mg PO QAM [facility]; Protocol Stop: 02/21/24 08:59 Last Admin: 01/26/24 08:33 Dose: 5 mg Hydralazine HCl (Hydralazine 10 Mg Tab) 10 mg PO Q8H PRN PRN Reason: Hypertension SBP>180orDBP>100 Stop: 02/23/24 18:44 Ampicillin Sodium/Sulbactam Sodium 3,000 mg/ Sodium Chloride 100 mls @ 100 mls/hr IV Q6H [facility] Stop: 01/28/24 15:59 Last Admin: 01/26/24 10:05 Dose: 100 mls/hr Ibuprofen (Ibuprofen 600 Mg Tab) 600 mg PO Q8H [facility] Stop: 02/24/24 11:59 Last Admin: 01/26/24 03:46 Dose: 600 mg Lisinopril (Lisinopril 10 Mg Tab) 30 mg PO [facility] Stop: 02/21/24 08:59 Last Admin: 01/26/24 08:34 Dose: 30 mg Magnesium Chloride (Magnesium Chloride W/Calcium 64mg Delayed Rel Tab) 64 mg PO BID [facility] Stop: 02/22/24 09:14 Last Admin: 01/26/24 08:33 Dose: 64 mg Magnesium Hydroxide (Magnesium Hydroxide Susp 30 Ml Udc) 30 ml PO Q12H PRN PRN Reason: Constipation Stop: 02/20/24 11:42 Last Admin: 01/24/24 17:30 Dose: 30 ml Metoprolol Succinate (Metoprolol Succ 25mg Ext Rel Tab) 25 mg PO [facility] Stop: 02/24/24 08:59 Last Admin: 01/26/24 08:33 Dose: 25 mg Morphine Sulfate (Morphine Sulfate 4 Mg/Ml 1 Ml Carp\Vial) 4 mg IV Q4H PRN PRN Reason: Severe Pain (Scale 7, 8, 9,10) Stop: 02/08/24 05:46 Last Admin: 01/25/24 23:36 Dose: 4 mg Ondansetron HCl (Ondansetron Inj 2 Mg/Ml 2 Ml Vial) 4 mg IV Q6H PRN PRN Reason: Nausea Stop: 02/20/24 11:42 Oxybutynin Chloride (Oxybutynin Chloride 5 Mg Tab) 10 mg PO BID [facility] Stop: 02/20/24 20:59 Last Admin: 01/26/24 08:33 Dose: 10 mg Oxycodone HCl (Oxycodone Hcl Ir 5 Mg Tab (Immediate Release)) 5 mg PO Q4H PRN PRN Reason: Moderate Pain (Scale 4, 5, 6) Stop: 02/08/24 05:37 Last Admin: 01/26/24 10:08 Dose: 5 mg Pantoprazole Sodium (Pantoprazole 40 Mg Tab) 40 mg PO [facility]; Protocol Stop: 02/21/24 08:59 Last Admin: 01/26/24 08:34 Dose: 40 mg Polyethylene Glycol (Polyethylene (Miralax) 17 Gm Pack) 17 gm PO DAILY [facility] Stop: 02/24/24 10:29 Last Admin: 01/26/24 08:34 Dose: Not Given Senna/Docusate Sodium (Docusate Sodium/Senna 50/8.6mg Tab) 1 tab PO BID [facility] Stop: 02/24/24 10:29 Last Admin: 01/26/24 08:34 Dose: 1 tab Simvastatin (Simvastatin 40 Mg Tab) 40 mg PO [facility] Stop: 02/20/24 20:59 Last Admin: 01/25/24 20:56 Dose: 40 mg Terazosin HCl (Terazosin Hcl 5 Mg Cap) 5 mg PO [facility] Stop: 02/20/24 20:59 Last Admin: 01/25/24 20:57 Dose: 5 mg (2) Cat bite Encounter type: initial encounter Qualified Code(s): W55.01XA - Bitten by cat, initial encounter
[2024-01-26] MEDS ORDERED: PROPOFOL IV EMULSION 10 MG/ML 20 ML VIAL IV ONE ×2 (12:59→16:38)
[2024-01-26] MEDS ORDERED: DEXAMETHASONE SOD INJ 4 MG/ML VIAL ONE (12:59)
[2024-01-26] MEDS ORDERED: MIDAZOLAM HCL 1 MG/ML 2ML VIAL ONE (12:59)
[2024-01-26] MEDS ORDERED: LIDOCAINE 2% 2 ML VIAL/AMP(20MG/ML) INFIL ONE (12:59)
[2024-01-26] MEDS ORDERED: ONDANSETRON INJ 2 MG/ML 2 ML VIAL ONE (12:59)
[2024-01-26] MEDS ORDERED: fentaNYL citrate PF 100 MCG/2 ML VIAL ONE (13:00)
[2024-01-26] MEDS ORDERED: fentaNYL citrate PF 100 MCG/2 ML VIAL IV PRN (13:14)
[2024-01-26] MEDS ORDERED: ePHEDrine sulfate 50 MG/ML AMP IV PRN (13:14)
[2024-01-26] MEDS ORDERED: HYDROmorphone INJ 1 MG/ML SYRINGE IV PRN (13:14)
[2024-01-26] MEDS ORDERED: ATROPINE SULFATE 0.1 MG/ML 10ML SYR IV PRN (13:14)
--- NOTE | 2024-01-26 14:47 | History & Physical Bridge Note ---
Date of Service January 26, 2024 History & Physical Bridge Note I have examined the patient, reviewed the History & Physical and in the interval since the performance of the History & Physical I have noted the following changes of clinical significance: no changes noted. I saw the patient in the preoperative holding area. We discussed risk benefits and reasonable outcomes and expectations for surgery. I reviewed his CAT scan which does show severe synovitis in the carpal tunnel. I have suspicion that this is infectious tenosynovitis and infection in the carpal tunnel causing acute carpal tunnel syndrome. We will plan for: Left carpal tunnel release, left wrist flexor tenosynovectomy in the region of the carpal tunnel, possible left wrist arthrotomy and drainage and washout.
[2024-01-26] MEDS ORDERED: ePHEDrine sulfate 50 MG/5 ML SYR ONE (16:16)
[2024-01-26] MEDS: BUPIVACAINE 0.5 % 5 MG/1 ML MPF 30ML VIAL ONE (16:21)
[2024-01-26] MEDS: LIDOCAINE 1% LOCAL 20 ML VIAL ONE (16:22)
--- NOTE | 2024-01-26 16:29 | Operative Report ---
Post Operative Report Procedure Date: January 26, 2024 PRE-OP DIAGNOSIS: Left septic flexor tenosynovitis, left acute carpal tunnel syndrome, left wrist infection POST-OP DIAGNOSIS: Left septic flexor tenosynovitis, left acute carpal tunnel syndrome, left septic radiocarpal joint, left septic distal radial ulnar joint, left septic extensor tenosynovitis. PROCEDURE: Left carpal tunnel release, left flexor tenosynovectomy, left extensor tenosynovectomy, left arthrotomy and drainage radiocarpal joint, left arthrotomy and drainage distal radial ulnar joint. SURGEON: Soren Carreon MD TRUSS ASSEMBLER: Atif Alex PA-C ANESTHESIA: General anesthesia FINDINGS: Significant infection in the carpal tunnel, distal radial ulnar joint and radiocarpal joint. Severe flexor tenosynovitis seen, moderate extensor tenosynovitis seen. Carpal tunnel showed significant inflammatory fluid in median nerve show compression in the mid aspect of the carpal tunnel. INDICATIONS: This is a gentleman with progressive pain and swelling in the hand. He presents after failure of conservative treatment antibiotics. MRI documents significant synovitis in the carpal tunnel. Clinically I have concern for septic flexor tenosynovitis in the carpal tunnel and distal forearm as well as possible radiocarpal joint infection and distal radial ulnar joint infection. The risks and benefits have been discussed including, but not limited to, risk of infection, nerve injury, stiffness, loss of motion, failure to improve, etc. Reasonable outcomes and options of treatment were discussed. An explanation of appropriate alternatives to the procedure that may be advantageous were discussed and their risks and benefits, as well as the risks and benefits of not proceeding with treatment. I offered to answer any additional inquiries concerning the treatment involved. All the patients questions were answered. The patient is agreeable, understanding of the treatment plan and alternatives, and wishes to proceed with the treatment plan. DESCRIPTION OF OPERATION: The patient was identified. The proper procedure and site were verified. A surgical time out was taken and observed. The patient was given perioperative antibiotics prior to the skin incision. After administration of anesthesia, the patient's arm prepped and draped in the usual sterile fashion. I made an extensile carpal tunnel incision with a zigzag over the wrist crease and extended this proximally up about 2 inches from the flexion crease of the wrist. I dissected through the subcutaneous tissues and identified the transverse carpal ligament. I sharply incised the transverse carpal ligament and opened the forearm fascia, completing carpal tunnel release. The above- mentioned findings were identified. Patient had significant Flexor tenosynovitis in the FDS and FDP tendons in particular. I performed flexor tenosynovectomy of these tendons with scissors and rongeur, removing a large amount of extensor tenosynovitis. I took extensive cultures. I protect the median nerve throughout the procedure. I made a dorsal longitudinal incision over Daniela's tubercle. Dissection was carried down through the skin and subcutaneous tissues. I sharply incised the fourth extensor compartment distally. Moderate amount of extensor tenosynovitis was identified and I performed extensor tenosynovectomy with scissors and rongeur. I made a longitudinal arthrotomy into the radiocarpal joint and identified gross infection in the region and serous fluid. Performed s ynovectomy and arthrotomy and drainage of the radiocarpal joint. Given that there is a bite wound directly over the distal radial ulnar joint elected to proceed with inspection of this. I made a small mini incision in the fifth extensor compartment and retracted the EDM tendon. I then made a small incision distal radial ulnar joint and performed arthrotomy and drainage of the infection in that region as well. Due to the complex nature of the procedure, the entire surgery was performed with the operational assistance of Atif Alex PA-C.The medical office assistant, under direct supervision, was involved in the actual performance of all aspects of the surgical procedure including hemostasis, tissue retraction and incision, instrument management, patient positioning, and wound closure. Attestation: I attest to the content of the Intraoperative Record and any orders documented therein. Any exceptions are noted below.
[2024-01-26] MEDS: ONDANSETRON INJ 2 MG/ML 2 ML VIAL IV PRN (17:13)
--- NOTE | 2024-01-26 17:32 | Anesthesiology Progress Note ---
Date of Service January 26, 2024 Anesthesia Post Procedure Vital Signs Vital Signs: Temp Pulse Pulse Resp BP Pulse Ox O2 Del Method 01/26/24 17:24 77 20 157/94 H 95 Room Air 01/26/24 17:15 76 15 139/89 100 Oxymask 01/26/24 17:05 69 13 144/87 H 100 Oxymask 01/26/24 16:55 70 17 151/85 H 100 Oxymask 01/26/24 16:46 96.8 F L 73 24 153/92 H 96 Oxymask 01/26/24 13:09 98.4 F 82 20 153/98 H 96 Room Air 01/25/24 20:47 97.9 F 99 H 18 134/87 98 Room Air O2 Flow Rate 01/26/24 17:24 01/26/24 17:15 2 01/26/24 17:05 6 01/26/24 16:55 6 01/26/24 16:46 6 01/26/24 13:09 01/25/24 20:47 Pain Intensity Left Arm: Pain Intensity: 2 Transfer of Care Handoff Completed per policy Notes Mental Status: alert / awake / arousable and participated in evaluation Patient Amnestic to Procedure: Yes Nausea / Vomiting: adequately controlled Pain: adequately controlled Airway Patency, RR, SpO2: stable & adequate BP & HR: stable & adequate Hydration State: stable & adequate Anesthetic Complications: no major complications apparent and Pt Satisfied with anesthetic care
[2024-01-26] MEDS ORDERED: MAGNESIUM HYDROXIDE SUSP 30 ML UDC PO PRN (17:54)
[2024-01-26] MEDS ORDERED: bisacodyL 10 MG SUPP PR PRN (17:54)
[2024-01-26] MEDS ORDERED: ONDANSETRON INJ 2 MG/ML 2 ML VIAL IV PRN (17:54)
[2024-01-26] MEDS ORDERED: METOCLOPRAMIDE HCL INJ 5 MG/ML 2 ML VIAL IV PRN (17:54)
[2024-01-26] MEDS ORDERED: NALOXONE HCL 0.4 MG/1 ML VIAL/CARP IV PRN (17:54)
[2024-01-26] MEDS ORDERED: diphenhydrAMINE Capsule 25 MG CAP PO PRN (17:54)
[2024-01-26] MEDS: SODIUM CHLORIDE 0.9% 1,000 ML IV SCH (18:29)
[2024-01-26] MEDS: RABIES VACC (IMOVAX) HUMAN DIPL CELL 2.5 UNITS/ML SYR IM ONE (18:36)
[2024-01-26] MEDS: DOCUSATE SODIUM 100 MG CAP PO SCH (21:09)
[2024-01-26] MEDS: SENNA 8.6 MG TAB PO SCH (21:09)
[2024-01-27 07:47] LABS: Basophils # (auto) 0.02 K/uL (0.00-0.20); Basophils % (auto) 0.2 %; Hematocrit (blood only) 30.9 % (42.0-52.0); Hemoglobin 10.2 g/dl (14.0-18.0); Immature Granulocytes # (auto) 0.04 K/uL (0.01-0.20); Immature Granulocytes % (auto) 0.3 %; Lymphocytes # (auto) 0.79 K/uL (1.20-3.40); Lymphocytes % (auto) 6.5 %; Mean Corpuscular Hemoglobin 30.2 pg (25.0-34.0); Mean Corpuscular Volume 91.4 fL (80.0-100.0); Mean Platelet Volume 10.5 fL (9.4-12.4); Monocytes # (auto) 1.18 K/uL (0.11-0.59); Monocytes % (auto) 9.7 %; Neutrophils # (auto) 10.18 K/uL (1.40-6.50); Neutrophils % (auto) 83.3 %; Platelet Count 261 K/uL (130-400); RDW Coefficient of Variation 14.7 % (11.5-14.5); RDW Standard Deviation 49.7 fL (36.4-46.3); Red Blood Count 3.38 M/uL (4.70-6.10); White Blood Count 12.21 K/ul (4.8-10.8)
[2024-01-27 08:05] LABS: BUN Creatinine Ratio 18.4 (10-20); Calcium 9.4 mg/dl (8.6-10.3); Creatinine Clr Calc Pharmacy 53.2 ml/min; Est GFR (African American) 84.6 ml/min; Potassium 3.9 mmol/L (3.5-5.1)
[2024-01-27] MEDS: MULTIVITAMIN TAB PO SCH (09:51)
[2024-01-27] MEDS: SODIUM CHLORIDE 0.9% 1,000 ML IV SCH (13:52)
--- NOTE | 2024-01-27 15:54 | Electrocardiogram Report ---
Test Reason : Blood Pressure : / mmHG Vent. Rate : 087 BPM Atrial Rate : 087 BPM P-R Int : 202 ms QRS Dur : 086 ms QT Int : 358 ms P-R-T Axes : 076 081 075 degrees QTc Int : 430 ms Normal sinus rhythm Normal ECG When compared with ECG of 15-MAY-2022 09:41, Vent. rate has increased BY 36 BPM Confirmed by Harpreet Neff ([id number]) on 01/27/2024 3:54:07 PM Referred By: REFERRED SELF Confirmed By:Harpreet Neff
--- NOTE | 2024-01-27 17:21 | Hospitalist Progress Note ---
Date of Service January 27, 2024 Assessment & Plan (1) Cellulitis of forearm, left: (2) Cat bite: (3) History of paroxysmal supraventricular tachycardia: (4) HTN (hypertension): (5) BPH (benign prostatic hyperplasia): (6) Hyperlipidemia: (7) GERD (gastroesophageal reflux disease): Plan Mr. Graham is a 78 y/o M was at his house feeding stray cats and one bit his left forearm. His left forearm had a small superficial bite rebecca on the ventral aspect of his hand. He had erythema and swelling at the site with lymphangitis on the left dorsal forearm. He denies previous bites. He has seen this cat before and has fed it before, but it lives outside and is not domesticated. Mild leukocytosis WBC 11.15, lactate and procalcitonin normal. Otherwise electrolytes unremarkable.L Forearm x-ray indicates no osteomyelitis but soft tissue swelling; old ulnar styloid fracture noted. No retained foreign matter (tooth) noted. RIG x4 (R thigh x2, L thigh x1 and left forearm), rabies vaccine, and Tdap administered with initiation of Unasyn IV. 1L NS be administered. Patient will be admitted for further evaluation and management of forearm cellulitis and lymphangitis Obtain MRSA screen, blood cultures low yield but were obtained in ED, limb elevation, cover for staph with Unasyn and Ortho consult given location of bite/increased swelling around joint. Cellulitis of left wrist: Lymphangitis/Tenosynovitis s/p Cat bite Left forearm MRI:No acute bony abnormality is seen involving the forearm. There is evidence of cellulitis along the volar aspect of the distal forearm/wrist. No fluid collection is seen to suggest abscess. Findings suggest a nonspecific tenosynovitis of the extensor tendons of the wrist joint. 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 01/20 blood cultures no growth to date Negative MRSA screen Received Tdap, RIG plus rabies vaccine in ED On IV Unasyn (day 7) 01/24 wrist MRI - Severe synovitis in the carpal tunnel. Circumferential subcutaneous edema. Severe osteoarthritis with the carpus, as described. Moderate dorsal capsule synovitis. Moderate synovitis along the volar radiocarpal eccentric ligaments. Tear of the scapholunate ligament. No widening of the scapholunate interval. Degeneration of the central disc of the triangular fiber cartilage. Old fracture at the base of the ulnar styloid, with ununited fracture fragment measuring 7 x 8 mm. POD#1 Left carpal tunnel release, left flexor tenosynovectomy, left extensor tenosynovectomy, left arthrotomy and drainage radiocarpal joint, left arthrotomy and drainage distal radial ulnar joint by Dr. Carreon Operative cultures NGTD ID consult placed Rabies PEP received RIG plus vaccine on 01/20 which would be day 0 Will require additional rabies vaccination, received rabies vaccine on 01/25 Will need two additional doses, next on 01/27 and February 03 Scheduled dose for 01/27 H/O PSVT HTN Continue metoprolol, terazosin, and lisinopril [facility] Slightly tachycardic today, will give 1 L IVF, continue to monitor; EKG shows NSR HLD continue simvastatin BPH continue terazosin GERD continue PPI Bowel Regimen On Miralax and senna S DVT PROPHYLAXIS SQ Lovenox Patient seen in collaboration with Dr. Domínguez. Admission and Anticipated Discharge Date Admission Date: January 21, 2024 Supervising Physician Co-Signing Physician Notes Attending addendum: The patient was seen and examined in medical floor He has been feeling much better following I&D of the left forearm Denies any numbness and or tingling involving the fingers He can move his fingers pretty well Swelling of the finger is down Awaiting ID input and recommendation for use of antibiotic Cellulitis of the left wrist with tenosynovitis status post cat bite Status post I&D Agree with assessment and plan as outlined above by Ev Domínguez Subjective Follow-up for cat bite and tenosynovitis. Patient seen and examined. S/p I&D yesterday by orthopedics. Patient reports significant improvement in discomfort. Offers no complaints. Remains afebrile. No chest pain or shortness of breath. Denies abdominal pain and nausea. Physical Exam Constitutional: WD/WN, vitals as above no acute distress Respiratory: normal respiratory effort, lungs clear to auscultation Cardiovascular: Rate/Rhythm: regular rhythm and + tachycardic Vessels: normal peripheral pulses Extremities: no edema Gastrointestinal (Abdomen): Percussion/Palpation: abdomen soft; abdomen nontender Musculoskeletal: S/p left hand and wrist surgery, surgical dressing CDI,+ edema left hand, CSM checks intact Skin: no rashes, warm and dry Neurologic: no focal motor deficits Psychiatric: A+Ox3, euthymic affect Results & Data Results & Data Vital Signs (Past 12 Hours) Vital Signs Temp Pulse Resp BP Pulse Ox O2 Del Method 01/27/24 15:43 36.3 C L 92 H 16 156/91 H 95 Room Air 01/27/24 12:47 37 C 110 H 16 148/90 H 95 Room Air 01/27/24 08:49 37.2 C 109 H 18 163/81 H 96 Room Air Laboratory Results Short CBC 01/27/24 Range/Units 07:20 WBC 12.21 H (4.8-10.8) K/ul Hgb 10.2 L (14.0-18.0) g/dl Hct 30.9 L (42.0-52.0) % Plt Count 261 (130-400) K/uL BMP 01/27/24 07:20 Sodium 140 Potassium 3.9 Chloride 103 Carbon Dioxide 26 BUN 18 Creatinine 0.98 Glucose 143 H Calcium 9.4 (2) Cat bite Encounter type: initial encounter Qualified Code(s): W55.01XA - Bitten by cat, initial encounter
[2024-01-28 08:04] LABS: Hematocrit (blood only) 29.9 % (42.0-52.0); Hemoglobin 9.8 g/dl (14.0-18.0); Mean Corpuscular Hemoglobin 30.1 pg (25.0-34.0); Mean Corpuscular Hgb Conc 32.8 g/dL (32.0-36.0); Mean Corpuscular Volume 91.7 fL (80.0-100.0); Mean Platelet Volume 10.4 fL (9.4-12.4); Platelet Count 263 K/uL (130-400); RDW Coefficient of Variation 15.1 % (11.5-14.5); RDW Standard Deviation 51.5 fL (36.4-46.3); Red Blood Count 3.26 M/uL (4.70-6.10); White Blood Count 6.17 K/ul (4.8-10.8)
[2024-01-28 08:19] LABS: BUN Creatinine Ratio 15.6 (10-20); Calcium 8.5 mg/dl (8.6-10.3); Creatinine Clr Calc Pharmacy 57.9 ml/min; Est GFR (African American) 93.8 ml/min; Est GFR (Non-African American) 80.9 ml/min; Potassium 4.4 mmol/L (3.5-5.1)
[2024-01-28] MEDS: RABIES VACC (IMOVAX) HUMAN DIPL CELL 2.5 UNITS/ML SYR IM ONE (10:04)
--- NOTE | 2024-01-28 10:50 | Infectious Disease Consult ---
Date of Service January 28, 2024 Telehealth Information I performed this visit using a real-time telehealth connection between my location and the patients location ([facility]). After connecting through interactive tele-video, patient was identified by name and date of and/or wristband check.Patient (or authorized healthcare renewals representative) was informed that this was a telemedicine visit and it was being conducted confidentially over secure lines. My office door was closed and no on e else was present in the room with me.Patient (or authorized healthcare renewals representative) provided consent to proceed with the visit, expressed an understanding of privacy and security of the telemedicine visit, and gave permission to have a hospital renewals representative in the room in order to assist with the visit and to conduct portions of the visit, as needed. I informed the patient (or authorized healthcare renewals representative) that I reviewed their record and presented the opportunity for them to ask any questions regarding the visit today. The patient agreed to participate. Assessment & Plan (1) Rabies, need for prophylactic vaccination against: (2) History of paroxysmal supraventricular tachycardia: (3) Hyperlipidemia: (4) BPH (benign prostatic hyperplasia): (5) GERD (gastroesophageal reflux disease): (6) Cellulitis of forearm, left: (7) Cat bite: (8) Renal colic on left side: (9) History of colon polyps: (10) HTN (hypertension): Plan Assessment: Mr. Graham is a 78 yo M with PMhx as shown below presents to [facility] on 01/21/2024 for left forearm wound infection from Cat Bite. At [facility], pt taken to OR on 01/26/2024 Significant infection in the carpal tunnel, distal radial ulnar joint and radiocarpal joint. Severe flexor tenosynovitis seen, moderate extensor tenosynovitis seen. Carpal tunnel showed significant inflammatory fluid in median nerve show compression in the mid aspect of the carpal tunnel. Pt with deep wound infection from Cat Bite. Plan: - Recommend Unasyn 3g q6 IV for a total of 3 weeks from OR on 01/26/2024 with END DATE: 02/16/2024 - Recommend CMP an CBC weekly until end date. - we will sign off, no need for ID clinic appointment, please call with issues, concerns, or questions. History of Present Illness History of Present Illness Reason for consult: left septic radiocarpal joint, left septic distal Mr. Graham is a 78 yo M with PMhx as shown below presents to [facility] on 01/21/2024 for left forearm wound infection. Per notes and chart review, pt was at his house feeding stray cats and one bit his left forearm yesterday between [id number]. Pt had a left forearm with a small superficial bite rebecca on the ventral aspect of his hand. Pt developed erythema and swelling at the site with lymphangitis on the left dorsal forearm. This prompted pt a trip to the ED, pt had L Forearm x-ray which indicated no osteomyelitis but soft tissue swelling; old ulnar styloid fracture noted. No retained foreign matter (tooth) noted. Pt given, RIG x4 (R thigh x2, L thigh x1 and left forearm), rabies vaccine, and Tdap administered with initiation of Unasyn IV. 1L NS be administered. Patient admitted for further evaluation and management of forearm cellulitis and lymphangitis. Obtain MRSA screen, blood cultures negative, limb elevation, cover for staph with Unasyn and Ortho consult given location of bite/increased swelling around joint. At [facility], pt taken to OR on 01/26/2024 Significant infection in the carpal tunnel, distal radial ulnar joint and radiocarpal joint. Severe flexor tenosynovitis seen, moderate extensor tenosynovitis seen. Carpal tunnel showed significant inflammatory fluid in median nerve show compression in the mid aspect of the carpal tunnel. ID consulted for evaluation and management. Allergies Allergy/AdvReac Type Severity Reaction Status Date / Time No Known Allergies Allergy Verified 05/18/22 13:52 Home Medications Medication Instructions Recorded Confirmed Type dutasteride 0.5 mg capsule 0.5 mg PO QAM 07/20/19 01/21/24 History lisinopril 30 mg tablet 30 mg PO QAM 07/20/19 01/21/24 History omeprazole 40 mg capsule,delayed 40 mg PO QAM 07/20/19 01/21/24 History release oxybutynin chloride 5 mg tablet 5 mg PO BID 07/20/19 01/21/24 History simvastatin 40 mg tablet 40 mg PO HS 07/20/19 01/21/24 History terazosin 5 mg capsule 5 mg PO HS 07/20/19 01/21/24 History aspirin 81 mg tablet,delayed 81 mg PO DAILY 05/14/22 01/21/24 History release metoprolol succinate 25 mg 25 mg PO QAM 05/14/22 01/21/24 History tablet,extended release 24 hr Patient History Medical History History of paroxysmal supraventricular tachycardia Encounter for pre-operative examination Ureterolithiasis Chronic back pain neck- cant turn side to side very well. up and down is ok BPH (benign prostatic hyperplasia) Diverticular disease has had in past GERD (gastroesophageal reflux disease) Hearing deficit Cardiac murmur doesnt follow with anyone DX As CHILD Hypertension Hyperlipidemia Surgical History History of ingrown nail LEFT FOOT WITH REPAIR History of deviated nasal septum with repair History of colonoscopy Hx of hernia repair Social History Smoking Status: Never smoker Cigarettes Per Day: 15; Second Hand Exposure: Yes; Do You Dip or Chew Tobacco: No; Hx Alcohol Use: Yes Alcohol type: beer and hard liquor Hx Substance Use: No Preferred Language: Vietnamese Communication Ability: Effective Grey Roll Man Required: No Beliefs That Will Affect Care: None Current Living Situation: Alone Other Information That Helps Us Care for You: No Feels Safe at Home: Yes Safety Concerns: Feels Safe At This Time Assistive Devices: None Review of Systems Reviewed all negative except what mentioned above. Physical Exam NA Results & Data Vital Signs (Past 12 Hours) Vital Signs Temp Pulse Resp BP Pulse Ox O2 Del Method 01/28/24 07:21 36.5 C 69 18 153/93 H 97 Room Air Laboratory Results 01/26/24 16:01 Gram Stain - Final Hand,Left Aerobic and Anaerobic Culture - Preliminary No growth to date. 01/26/24 15:38 Gram Stain - Final Hand,Left Aerobic and Anaerobic Culture - Preliminary No growth to date. 01/26/24 15:27 Gram Stain - Final Hand,Left Aerobic and Anaerobic Culture - Preliminary No growth to date. 01/28/24 07:22 WBC 6.17 RBC 3.26 L Hgb 9.8 L Hct 29.9 L MCV 91.7 MCH 30.1 MCHC 32.8 RDW Std Deviation 51.5 H RDW Coeff of Vic 15.1 H Plt Count 263 MPV 10.4 Sodium 142 Potassium 4.4 Chloride 109 H Carbon Dioxide 28 Anion Gap 5 BUN 14 Creatinine 0.90 Est Cr Clr Drug Dosing 57.9 Est GFR ( Amer) 93.8 Est GFR (Non-Af Amer) 80.9 BUN/Creatinine Ratio 15.6 Glucose 98 Calcium 8.5 L Diagnostic Findings Reviewed all apppropriate diagnostics. Medications Administered Home Medications Medication Instructions Recorded Confirmed Last Taken dutasteride 0.5 mg capsule 0.5 mg PO QAM 07/20/19 01/21/24 05/14/22 lisinopril 30 mg tablet 30 mg PO QAM 07/20/19 01/21/24 05/14/22 omeprazole 40 mg capsule,delayed 40 mg PO QAM 07/20/19 01/21/24 05/14/22 release oxybutynin chloride 5 mg tablet 5 mg PO BID 07/20/19 01/21/24 05/14/22 08:00 simvastatin 40 mg tablet 40 mg PO HS 07/20/19 01/21/24 05/13/22 terazosin 5 mg capsule 5 mg PO HS 07/20/19 01/21/24 05/13/22 aspirin 81 mg tablet,delayed 81 mg PO DAILY 05/14/22 01/21/24 05/14/22 release metoprolol succinate 25 mg 25 mg PO QAM 05/14/22 01/21/24 05/14/22 tablet,extended release 24 hr Active Medications Generic Name Dose Route Start Last Admin Trade Name Eloy PRN Reason Stop Dose Admin Acetaminophen 1,000 mg 01/25/24 14:00 01/28/24 13:14 Acetaminophen 500 Mg Tab PO 02/24/24 13:59 1,000 mg Q8H STEFANIE Administration Aspirin 81 mg 01/22/24 09:00 01/28/24 07:53 Aspirin 81 Mg Ectab PO 02/21/24 08:59 81 mg DAILY STEFANIE Administration Docusate Sodium 100 mg 01/26/24 21:00 01/28/24 07:52 Docusate Sodium 100 Mg Cap PO 02/25/24 20:59 100 mg BID STEFANIE Administration Enoxaparin Sodium 40 mg 01/22/24 09:00 01/28/24 07:54 Enoxaparin Inj 40 Mg/0.4 Ml Syr SQ 02/21/24 08:59 40 mg QAM STEFANIE Administration Finasteride 5 mg 01/22/24 09:00 01/28/24 07:52 Finasteride 5 Mg Tab PO 02/21/24 08:59 5 mg QAM STEFANIE Administration Protocol Ampicillin Sodium/Sulbactam 100 mls @ 100 mls/hr 01/21/24 16:00 01/28/24 10:32 Sodium 3,000 mg/ Sodium IV 01/28/24 15:59 Infused Chloride Q6H STEFANIE Infusion Ibuprofen 600 mg 01/25/24 12:00 01/28/24 11:52 Ibuprofen 600 Mg Tab PO 02/24/24 11:59 600 mg Q8H STEFANIE Administration Lisinopril 30 mg 01/22/24 09:00 01/28/24 07:53 Lisinopril 10 Mg Tab PO 02/21/24 08:59 30 mg QAM STEFANIE Administration Magnesium Chloride 64 mg 01/23/24 09:15 01/28/24 07:52 Magnesium Chloride W/Calcium 64mg Delayed Rel Tab PO 02/22/24 09:14 64 mg BID STEFANIE Administration Magnesium Hydroxide 30 ml 01/21/24 11:43 01/24/24 17:30 Magnesium Hydroxide Susp 30 Ml Udc PO 02/20/24 11:42 30 ml Q12H PRN Administration Constipation Metoprolol Succinate 25 mg 01/25/24 09:00 01/28/24 07:53 Metoprolol Succ 25mg Ext Rel Tab PO 02/24/24 08:59 25 mg QAM STEFANIE Administration Morphine Sulfate 4 mg 01/25/24 05:47 01/25/24 23:36 Morphine Sulfate 4 Mg/Ml 1 Ml Carp\Vial IV 02/08/24 05:46 4 mg Q4H PRN Administration Severe Pain (Scale 7, 8, 9,10) Multivitamins 1 tab 01/27/24 09:00 01/28/24 07:53 Multivitamin Tab PO 02/26/24 08:59 1 tab QAM STEFANIE Administration Oxybutynin Chloride 10 mg 01/21/24 21:00 01/28/24 07:53 Oxybutynin Chloride 5 Mg Tab PO 02/20/24 20:59 10 mg BID STEFANIE Administration Oxycodone HCl 5 mg 01/25/24 10:22 01/26/24 18:38 Oxycodone Hcl Ir 5 Mg Tab (Immediate Release) PO 02/08/24 05:37 5 mg Q4H PRN Administration Moderate Pain (Scale 4, 5, 6) Pantoprazole Sodium 40 mg 01/22/24 09:00 01/28/24 07:52 Pantoprazole 40 Mg Tab PO 02/21/24 08:59 40 mg QAM STEFANIE Administration Protocol Polyethylene Glycol 17 gm 01/25/24 10:30 01/28/24 07:54 Polyethylene (Miralax) 17 Gm Pack PO 02/24/24 10:29 17 gm DAILY STEFANIE Administration Senna/Docusate Sodium 1 tab 01/25/24 10:30 01/28/24 07:53 Docusate Sodium/Senna 50/8.6mg Tab PO 02/24/24 10:29 1 tab BID STEFANIE Administration Sennosides 17.2 mg 01/26/24 21:00 01/27/24 20:12 Senna 8.6 Mg Tab PO 02/25/24 20:59 17.2 mg HS STEFANIE Administration Simvastatin 40 mg 01/21/24 21:00 01/27/24 20:11 Simvastatin 40 Mg Tab PO 02/20/24 20:59 40 mg HS STEFANIE Administration Terazosin HCl 5 mg 01/21/24 21:00 01/27/24 20:12 Terazosin Hcl 5 Mg Cap PO 02/20/24 20:59 5 mg HS STEFANIE Administration (7) Cat bite Encounter type: initial encounter Qualified Code(s): W55.01XA - Bitten by cat, initial encounter
--- NOTE | 2024-01-28 15:46 | Hospitalist Progress Note ---
Date of Service January 28, 2024 Assessment & Plan (1) Cellulitis of forearm, left: (2) Cat bite: (3) History of paroxysmal supraventricular tachycardia: (4) HTN (hypertension): (5) BPH (benign prostatic hyperplasia): (6) Hyperlipidemia: (7) GERD (gastroesophageal reflux disease): Plan Mr. Graham is a 78 y/o M was at his house feeding stray cats and one bit his left forearm. His left forearm had a small superficial bite rebecca on the ventral aspect of his hand. He had erythema and swelling at the site with lymphangitis on the left dorsal forearm. He denies previous bites. He has seen this cat before and has fed it before, but it lives outside and is not domesticated. Mild leukocytosis WBC 11.15, lactate and procalcitonin normal. Otherwise electrolytes unremarkable.L Forearm x-ray indicates no osteomyelitis but soft tissue swelling; old ulnar styloid fracture noted. No retained foreign matter (tooth) noted. RIG x4 (R thigh x2, L thigh x1 and left forearm), rabies vaccine, and Tdap administered with initiation of Unasyn IV. 1L NS be administered. Patient will be admitted for further evaluation and management of forearm cellulitis and lymphangitis Obtain MRSA screen, blood cultures low yield but were obtained in ED, limb elevation, cover for staph with Unasyn and Ortho consult given location of bite/increased swelling around joint. Cellulitis of left wrist: Lymphangitis/Tenosynovitis s/p Cat bite Left forearm MRI:No acute bony abnormality is seen involving the forearm. There is evidence of cellulitis along the volar aspect of the distal forearm/wrist. No fluid collection is seen to suggest abscess. Findings suggest a nonspecific tenosynovitis of the extensor tendons of the wrist joint. 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 01/20 blood cultures no growth to date Negative MRSA screen Received Tdap, RIG plus rabies vaccine in ED On IV Unasyn (day 7) Clinically much better-swelling of the left hand is improving. And denies any pain 01/24 wrist MRI - Severe synovitis in the carpal tunnel. Circumferential subcutaneous edema. Severe osteoarthritis with the carpus, as described. Mod erate dorsal capsule synovitis. Moderate synovitis along the volar radiocarpal eccentric ligaments. Tear of the scapholunate ligament. No widening of the scapholunate interval. Degeneration of the central disc of the triangular fiber cartilage. Old fracture at the base of the ulnar styloid, with ununited fracture fragment measuring 7 x 8 mm. POD#2 Left carpal tunnel release, left flexor tenosynovectomy, left extensor tenosynovectomy, left arthrotomy and drainage radiocarpal joint, left arthrotomy and drainage distal radial ulnar joint by Dr. Carreon Operative cultures NGTD Appreciate ID input and recommendation Recommended to have Unasyn 3 g intravenously every 6 hourly for a total of 3 weeks Rabies PEP received RIG plus vaccine on 01/20 which would be day 0 Will require additional rabies vaccination, received rabies vaccine on 01/25 Will need two additional doses, next on 01/27 and February 03 Scheduled dose for 01/27 H/O PSVT HTN Continue metoprolol, terazosin, and lisinopril [facility] Slightly tachycardic today, will give 1 L IVF, continue to monitor; EKG shows NSR HLD continue simvastatin BPH continue terazosin GERD continue PPI Bowel Regimen On Miralax and senna S DVT PROPHYLAXIS SQ Lovenox Patient seen in collaboration with Dr. Domínguez. Admission and Anticipated Discharge Date Admission Date: January 21, 2024 Subjective 01/28/2024 The patient was seen and examined in medical He is a status post I&D for left dorsal tenosynovitis of the wrist He has been feeling a lot better following the procedure Has had ID evaluation Denies any other significant symptoms Review of Systems Review of Systems: All systems reviewed and are unremarkable except as noted below Physical Exam Physical Exam: Lying in bed without any acute distress Constitutional: well developed and well nourished; not ill appearing Eyes: PERRL, conjunctivae normal, anicteric sclerae ENMT: external ear and nose normal, oropharynx normal Neck: trachea midline, no thyromegaly Respiratory: no respiratory distress Auscultation: lungs clear to auscultation bilaterally Cardiovascular: Rate/Rhythm: regular rate and regular rhythm; not tachycardic Heart Sounds: normal S1 and normal S2; no murmur Extremities: no edema Gastrointestinal (Abdomen): Inspection/Auscultation: normal bowel sounds; abdomen not distended Percussion/Palpation: abdomen soft; abdomen nontender Musculoskeletal: No acute arthritis involving any of the joints Neurologic: normal touch/pain/proprioception and moves all extremities; no focal motor deficits Lymphatic: no cervical or axillary lymphadenopathy Results & Data Results & Data Vital Signs (Past 12 Hours) Vital Signs Temp Pulse Resp BP Pulse Ox O2 Del Method 01/28/24 15:11 37.0 C 62 18 157/92 H 95 Room Air 01/28/24 07:21 36.5 C 69 18 153/93 H 97 Room Air Laboratory Results Short CBC 01/28/24 Range/Units 07:22 WBC 6.17 (4.8-10.8) K/ul Hgb 9.8 L (14.0-18.0) g/dl Hct 29.9 L (42.0-52.0) % Plt Count 263 (130-400) K/uL BMP 01/28/24 07:22 Sodium 142 Potassium 4.4 Chloride 109 H Carbon Dioxide 28 BUN 14 Creatinine 0.90 Glucose 98 Calcium 8.5 L Medications Administered Current Inpatient Medications Acetaminophen (Acetaminophen 500 Mg Tab) 1,000 mg PO Q8H STEFANIE Stop: 02/24/24 13:59 Last Admin: 01/28/24 13:14 Dose: 1,000 mg Al Hydrox/Mg Hydrox/Simethicone (Aluminum/Magnesium Susp 30 Ml Udc) 15 ml PO Q4H PRN PRN Reason: Dyspepsia Stop: 02/20/24 11:42 Aspirin (Aspirin 81 Mg Ectab) 81 mg PO DAILY STEFANIE Stop: 02/21/24 08:59 Last Admin: 01/28/24 07:53 Dose: 81 mg Bisacodyl (Bisacodyl 10 Mg Supp) 10 mg MD DAILY PRN PRN Reason: Constipation Stop: 02/25/24 17:53 Diphenhydramine HCl (Diphenhydramine Capsule 25 Mg Cap) 25 mg PO Q8H PRN PRN Reason: Itching Stop: 02/25/24 17:53 Docusate Sodium (Docusate Sodium 100 Mg Cap) 100 mg PO BID STEFANIE Stop: 02/25/24 20:59 Last Admin: 01/28/24 07:52 Dose: 100 mg Enoxaparin Sodium (Enoxaparin Inj 40 Mg/0.4 Ml Syr) 40 mg SQ QAM STEFANIE Stop: 02/21/24 08:59 Last Admin: 01/28/24 07:54 Dose: 40 mg Finasteride (Finasteride 5 Mg Tab) 5 mg PO [facility]; Protocol Stop: 02/21/24 08:59 Last Admin: 01/28/24 07:52 Dose: 5 mg Hydralazine HCl (Hydralazine 10 Mg Tab) 10 mg PO Q8H PRN PRN Reason: Hypertension SBP>180orDBP>100 Stop: 02/23/24 18:44 Ampicillin Sodium/Sulbactam Sodium 3,000 mg/ Sodium Chloride 100 mls @ 100 mls/hr IV Q6H [facility] Stop: 01/28/24 15:59 Last Infusion: 01/28/24 10:32 Dose: Infused Ibuprofen (Ibuprofen 600 Mg Tab) 600 mg PO Q8H [facility] Stop: 02/24/24 11:59 Last Admin: 01/28/24 11:52 Dose: 600 mg Lisinopril (Lisinopril 10 Mg Tab) 30 mg PO [facility] Stop: 02/21/24 08:59 Last Admin: 01/28/24 07:53 Dose: 30 mg Magnesium Chloride (Magnesium Chloride W/Calcium 64mg Delayed Rel Tab) 64 mg PO BID [facility] Stop: 02/22/24 09:14 Last Admin: 01/28/24 07:52 Dose: 64 mg Magnesium Hydroxide (Magnesium Hydroxide Susp 30 Ml Udc) 30 ml PO Q12H PRN PRN Reason: Constipation Stop: 02/20/24 11:42 Last Admin: 01/24/24 17:30 Dose: 30 ml Magnesium Hydroxide (Magnesium Hydroxide Susp 30 Ml Udc) 30 ml PO Q6H PRN PRN Reason: Constipation Stop: 02/25/24 17:53 Metoclopramide HCl (Metoclopramide Hcl Inj 5 Mg/Ml 2 Ml Vial) 10 mg IV Q6H PRN PRN Reason: Nausea And Vomiting Stop: 02/25/24 17:53 Metoprolol Succinate (Metoprolol Succ 25mg Ext Rel Tab) 25 mg PO [facility] Stop: 02/24/24 08:59 Last Admin: 01/28/24 07:53 Dose: 25 mg Morphine Sulfate (Morphine Sulfate 4 Mg/Ml 1 Ml Carp\Vial) 4 mg IV Q4H PRN PRN Reason: Severe Pain (Scale 7, 8, 9,10) Stop: 02/08/24 05:46 Last Admin: 01/25/24 23:36 Dose: 4 mg Multivitamins (Multivitamin Tab) 1 tab PO QAM [facility] Stop: 02/26/24 08:59 Last Admin: 01/28/24 07:53 Dose: 1 tab Naloxone HCl (Naloxone Hcl 0.4 Mg/1 Ml Vial/Carp) 0.1 mg IV Q5M PRN PRN Reason: Oversedation/Resp Depression Stop: 02/25/24 17:53 Ondansetron HCl (Ondansetron Inj 2 Mg/Ml 2 Ml Vial) 4 mg IV Q6H PRN PRN Reason: Nausea Stop: 02/20/24 11:42 Ondansetron HCl (Ondansetron Inj 2 Mg/Ml 2 Ml Vial) 4 mg IV Q6H PRN PRN Reason: Nausea And Vomiting Stop: 02/25/24 17:53 Oxybutynin Chloride (Oxybutynin Chloride 5 Mg Tab) 10 mg PO BID [facility] Stop: 02/20/24 20:59 Last Admin: 01/28/24 07:53 Dose: 10 mg Oxycodone HCl (Oxycodone Hcl Ir 5 Mg Tab (Immediate Release)) 5 mg PO Q4H PRN PRN Reason: Moderate Pain (Scale 4, 5, 6) Stop: 02/08/24 05:37 Last Admin: 01/26/24 18:38 Dose: 5 mg Pantoprazole Sodium (Pantoprazole 40 Mg Tab) 40 mg PO [facility]; Protocol Stop: 02/21/24 08:59 Last Admin: 01/28/24 07:52 Dose: 40 mg Polyethylene Glycol (Polyethylene (Miralax) 17 Gm Pack) 17 gm PO DAILY [facility] Stop: 02/24/24 10:29 Last Admin: 01/28/24 07:54 Dose: 17 gm Senna/Docusate Sodium (Docusate Sodium/Senna 50/8.6mg Tab) 1 tab PO BID [facility] Stop: 02/24/24 10:29 Last Admin: 01/28/24 07:53 Dose: 1 tab Sennosides (Senna 8.6 Mg Tab) 17.2 mg PO [facility] Stop: 02/25/24 20:59 Last Admin: 01/27/24 20:12 Dose: 17.2 mg Simvastatin (Simvastatin 40 Mg Tab) 40 mg PO [facility] Stop: 02/20/24 20:59 Last Admin: 01/27/24 20:11 Dose: 40 mg Terazosin HCl (Terazosin Hcl 5 Mg Cap) 5 mg PO HS STEFANIE Stop: 02/20/24 20:59 Last Admin: 01/27/24 20:12 Dose: 5 mg (2) Cat bite Encounter type: initial encounter Qualified Code(s): W55.01XA - Bitten by cat, initial encounter
--- NOTE | 2024-01-28 17:03 | Orthopedic Progress Note ---
Date of Service January 28, 2024 Assessment & Plan (1) Cat bite: Plan: Assessment: Postop day 2 I&D of left carpal tunnel and radiocarpal joint Plan Overall he exhibits significant improvement. I feels unlikely he will require additional surgical treatment. At this point he should be stable to discharge if he can be provided with the appropriate intravenous antibiotics on a home basis. I instructed him in range of motion of the digits and strict elevation. Upon discharge she should follow-up with my physician lead dental assistant, Atif Alex 10 to 14 days from the surgical date. He should call the office additionally for an appointment with certified hand therapist as soon as he is discharged from the hospital for digital range of motion. Admission and Anticipated Discharge Date Admission Date: January 21, 2024 Subjective Vasyl is doing well. He states less pain compared to prior to surgery. He states numbness is improving to a small degree. Physical Exam Musculoskeletal: Left upper extremity exam: He has moderate swelling and edema in the hand. He has no streaking erythema. He has no significant drainage. He has more supple range of motion of his joints today than he did prior to surgery. He has less fluid accumulation in the carpal tunnel region. Results & Data Vital Signs (Past 12 Hours) Vital Signs Temp Pulse Resp BP Pulse Ox O2 Del Method 01/28/24 15:11 37.0 C 62 18 157/92 H 95 Room Air 01/28/24 07:21 36.5 C 69 18 153/93 H 97 Room Air (1) Cat bite Encounter type: initial encounter Qualified Code(s): W55.01XA - Bitten by cat, initial encounter
[2024-01-29] MEDS ORDERED: AMPICILLIN SOD/SULBACTAM SOD 3 GM VIAL IV SCH (08:30)
[2024-01-29] MEDS: AMPICILLIN/SULBACTAM SOD 3,000 MG in SODIUM CHLOR 0.9% MINI-B 100 ML IV SCH (08:57)
--- NOTE | 2024-01-29 15:17 | Hospitalist Progress Note ---
Date of Service January 29, 2024 Assessment & Plan (1) Cellulitis of forearm, left: (2) Cat bite: (3) History of paroxysmal supraventricular tachycardia: (4) HTN (hypertension): (5) BPH (benign prostatic hyperplasia): (6) Hyperlipidemia: (7) GERD (gastroesophageal reflux disease): Plan Mr. Graham is a 78 y/o M was at his house feeding stray cats and one bit his left forearm. His left forearm had a small superficial bite rebecca on the ventral aspect of his hand. He had erythema and swelling at the site with lymphangitis on the left dorsal forearm. He denies previous bites. He has seen this cat before and has fed it before, but it lives outside and is not domesticated. Mild leukocytosis WBC 11.15, lactate and procalcitonin normal. Otherwise electrolytes unremarkable.L Forearm x-ray indicates no osteomyelitis but soft tissue swelling; old ulnar styloid fracture noted. No retained foreign matter (tooth) noted. RIG x4 (R thigh x2, L thigh x1 and left forearm), rabies vaccine, and Tdap administered with initiation of Unasyn IV. 1L NS be administered. Patient will be admitted for further evaluation and management of forearm cellulitis and lymphangitis Obtain MRSA screen, blood cultures low yield but were obtained in ED, limb elevation, cover for staph with Unasyn and Ortho consult given location of bite/increased swelling around joint. Cellulitis of left wrist: Lymphangitis/Tenosynovitis s/p Cat bite Left forearm MRI:No acute bony abnormality is seen involving the forearm. There is evidence of cellulitis along the volar aspect of the distal forearm/wrist. No fluid collection is seen to suggest abscess. Findings suggest a nonspecific tenosynovitis of the extensor tendons of the wrist joint. 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 01/20 blood cultures no growth to date Negative MRSA screen Received Tdap, RIG plus rabies vaccine in ED On IV Unasyn (day 7) Clinically much better-swelling of the left hand is improving. And denies any pain Will continue to have wound care dressing as per recommendation Will have PICC line placement today and possible discharge on Wednesday 01/24 wrist MRI - Severe synovitis in the carpal tunnel. Circumferential subcutaneous edema. Severe osteoarthritis with the carpus, as described. Moderate dorsal capsule synovitis. Moderate synovitis along the volar radiocarpal eccentric ligaments. Tear of the scapholunate ligament. No widening of the scapholunate interval. Degeneration of the central disc of the triangular fiber cartilage. Old fracture at the base of the ulnar styloid, with ununited fracture fragment measuring 7 x 8 mm. POD#3 Left carpal tunnel release, left flexor tenosynovectomy, left extensor tenosynovectomy, left arthrotomy and drainage radiocarpal joint, left arthrotomy and drainage distal radial ulnar joint by Dr. Carreon Operative cultures NGTD Appreciate ID input and recommendation Recommended to have Unasyn 3 g intravenously every 6 hourly for a total of 3 weeks Antibiotic will be continued until 02/16/2024 Will need to have CBC and CMP weekly as long as an antibiotic Rabies PEP received RIG plus vaccine on 01/20 which would be day 0 Will require additional rabies vaccination, received rabies vaccine on 01/25 Will need two additional doses, next on 01/27 and February 03 Scheduled dose for 01/27 H/O PSVT HTN Continue metoprolol, terazosin, and lisinopril Follows with [facility] cardiology Slightly tachycardic today, will give 1 L IVF, continue to monitor; EKG shows NSR HLD continue simvastatin BPH continue terazosin GERD continue PPI Bowel Regimen On Miralax and senna S DVT PROPHYLAXIS SQ Lovenox Admission and Anticipated Discharge Date Admission Date: January 21, 2024 Subjective 01/28/2024 The patient was seen and examined in medical He is a status post I&D for left dorsal tenosynovitis of the wrist He has been feeling a lot better following the procedure Has had ID evaluation Denies any other significant symptoms 01/29/2024 The patient was seen and examined in medical floor He has been feeling a lot better He will have PICC line today and possible discharge on Wednesday on intravenous Unasyn Review of Systems Review of Systems: All systems reviewed and are unremarkable except as noted below Physical Exam Physical Exam: Lying in bed without any acute distress Constitutional: well developed and well nourished; not ill appearing Eyes: PERRL, conjunctivae normal, anicteric sclerae ENMT: external ear and nose normal, oropharynx normal Neck: trachea midline, no thyromegaly Respiratory: no respiratory distress Auscultation: lungs clear to auscultation bilaterally Cardiovascular: Rate/Rhythm: regular rate and regular rhythm; not tachycardic Heart Sounds: normal S1 and normal S2; no murmur Extremities: no edema Gastrointestinal (Abdomen): Inspection/Auscultation: normal bowel sounds; abdomen not distended Percussion/Palpation: abdomen soft; abdomen nontender Musculoskeletal: Left forearm and hand are much improved. Swelling is down no tenderness and has been moving the fingers and the wrist Neurologic: normal touch/pain/proprioception and moves all extremities; no focal motor deficits Lymphatic: no cervical or axillary lymphadenopathy Results & Data Results & Data Vital Signs (Past 12 Hours) Vital Signs Temp Pulse Resp BP Pulse Ox O2 Del Method 01/29/24 14:39 36.7 C 71 16 138/97 98 Room Air 01/29/24 07:58 36.6 C 72 16 149/88 H 96 Room Air Medications Administered Current Inpatient Medications Acetaminophen (Acetaminophen 500 Mg Tab) 1,000 mg PO Q8H [facility] Stop: 02/24/24 13:59 Last Admin: 01/29/24 13:00 Dose: 1,000 mg Al Hydrox/Mg Hydrox/Simethicone (Aluminum/Magnesium Susp 30 Ml Udc) 15 ml PO Q4H PRN PRN Reason: Dyspepsia Stop: 02/20/24 11:42 Aspirin (Aspirin 81 Mg Ectab) 81 mg PO DAILY [facility] Stop: 02/21/24 08:59 Last Admin: 01/29/24 07:51 Dose: 81 mg Bisacodyl (Bisacodyl 10 Mg Supp) 10 mg [place] DAILY PRN PRN Reason: Constipation Stop: 02/25/24 17:53 Diphenhydramine HCl (Diphenhydramine Capsule 25 Mg Cap) 25 mg PO Q8H PRN PRN Reason: Itching Stop: 02/25/24 17:53 Docusate Sodium (Docusate Sodium 100 Mg Cap) 100 mg PO BID [facility] Stop: 02/25/24 20:59 Last Admin: 01/29/24 07:50 Dose: 100 mg Enoxaparin Sodium (Enoxaparin Inj 40 Mg/0.4 Ml Syr) 40 mg SQ QAM [facility] Stop: 02/21/24 08:59 Last Admin: 01/29/24 07:52 Dose: 40 mg Finasteride (Finasteride 5 Mg Tab) 5 mg PO QAM [facility]; Protocol Stop: 02/21/24 08:59 Last Admin: 01/29/24 07:50 Dose: 5 mg Hydralazine HCl (Hydralazine 10 Mg Tab) 10 mg PO Q8H PRN PRN Reason: Hypertension SBP>180orDBP>100 Stop: 02/23/24 18:44 Ampicillin Sodium/Sulbactam Sodium 3,000 mg/ Sodium Chloride 100 mls @ 200 mls/hr IV Q6H [facility] Stop: 03/11/24 08:59 Last Infusion: 01/29/24 09:27 Dose: Infused Ibuprofen (Ibuprofen 600 Mg Tab) 600 mg PO Q8H [facility] Stop: 02/24/24 11:59 Last Admin: 01/29/24 11:27 Dose: 600 mg Lisinopril (Lisinopril 10 Mg Tab) 30 mg PO [facility] Stop: 02/21/24 08:59 Last Admin: 01/29/24 07:50 Dose: 30 mg Magnesium Chloride (Magnesium Chloride W/Calcium 64mg Delayed Rel Tab) 64 mg PO BID [facility] Stop: 02/22/24 09:14 Last Admin: 01/29/24 07:49 Dose: 64 mg Magnesium Hydroxide (Magnesium Hydroxide Susp 30 Ml Udc) 30 ml PO Q12H PRN PRN Reason: Constipation Stop: 02/20/24 11:42 Last Admin: 01/24/24 17:30 Dose: 30 ml Magnesium Hydroxide (Magnesium Hydroxide Susp 30 Ml Udc) 30 ml PO Q6H PRN PRN Reason: Constipation Stop: 02/25/24 17:53 Metoclopramide HCl (Metoclopramide Hcl Inj 5 Mg/Ml 2 Ml Vial) 10 mg IV Q6H PRN PRN Reason: Nausea And Vomiting Stop: 02/25/24 17:53 Metoprolol Succinate (Metoprolol Succ 25mg Ext Rel Tab) 25 mg PO [facility] Stop: 02/24/24 08:59 Last Admin: 01/29/24 07:50 Dose: 25 mg Morphine Sulfate (Morphine Sulfate 4 Mg/Ml 1 Ml Carp\Vial) 4 mg IV Q4H PRN PRN Reason: Severe Pain (Scale 7, 8, 9,10) Stop: 02/08/24 05:46 Last Admin: 01/25/24 23:36 Dose: 4 mg Multivitamins (Multivitamin Tab) 1 tab PO [facility] Stop: 02/26/24 08:59 Last Admin: 01/29/24 07:50 Dose: 1 tab Naloxone HCl (Naloxone Hcl 0.4 Mg/1 Ml Vial/Carp) 0.1 mg IV Q5M PRN PRN Reason: Oversedation/Resp Depression Stop: 02/25/24 17:53 Ondansetron HCl (Ondansetron Inj 2 Mg/Ml 2 Ml Vial) 4 mg IV Q6H PRN PRN Reason: Nausea Stop: 02/20/24 11:42 Ondansetron HCl (Ondansetron Inj 2 Mg/Ml 2 Ml Vial) 4 mg IV Q6H PRN PRN Reason: Nausea And Vomiting Stop: 02/25/24 17:53 Oxybutynin Chloride (Oxybutynin Chloride 5 Mg Tab) 10 mg PO BID [facility] Stop: 02/20/24 20:59 Last Admin: 01/29/24 07:49 Dose: 10 mg Oxycodone HCl (Oxycodone Hcl Ir 5 Mg Tab (Immediate Release)) 5 mg PO Q4H PRN PRN Reason: Moderate Pain (Scale 4, 5, 6) Stop: 02/08/24 05:37 Last Admin: 01/26/24 18:38 Dose: 5 mg Pantoprazole Sodium (Pantoprazole 40 Mg Tab) 40 mg PO [facility]; Protocol Stop: 02/21/24 08:59 Last Admin: 01/29/24 07:51 Dose: 40 mg Polyethylene Glycol (Polyethylene (Miralax) 17 Gm Pack) 17 gm PO DAILY [facility] Stop: 02/24/24 10:29 Last Admin: 01/29/24 07:51 Dose: 17 gm Senna/Docusate Sodium (Docusate Sodium/Senna 50/8.6mg Tab) 1 tab PO BID [facility] Stop: 02/24/24 10:29 Last Admin: 01/29/24 07:51 Dose: 1 tab Sennosides (Senna 8.6 Mg Tab) 17.2 mg PO [facility] Stop: 02/25/24 20:59 Last Admin: 01/28/24 19:32 Dose: 17.2 mg Simvastatin (Simvastatin 40 Mg Tab) 40 mg PO [facility] Stop: 02/20/24 20:59 Last Admin: 01/28/24 19:31 Dose: 40 mg Terazosin HCl (Terazosin Hcl 5 Mg Cap) 5 mg PO HS [facility] Stop: 02/20/24 20:59 Last Admin: 01/28/24 19:29 Dose: 5 mg (2) Cat bite Encounter type: initial encounter Qualified Code(s): W55.01XA - Bitten by cat, initial encounter
--- NOTE | 2024-01-30 11:11 | Hospitalist Progress Note ---
Date of Service January 30, 2024 Assessment & Plan (1) Cellulitis of forearm, left: (2) Cat bite: (3) History of paroxysmal supraventricular tachycardia: (4) HTN (hypertension): (5) BPH (benign prostatic hyperplasia): (6) Hyperlipidemia: (7) GERD (gastroesophageal reflux disease): Plan Mr. Graham is a 78 y/o M was at his house feeding stray cats and one bit his left forearm. His left forearm had a small superficial bite rebecca on the ventral aspect of his hand. He had erythema and swelling at the site with lymphangitis on the left dorsal forearm. He denies previous bites. He has seen this cat before and has fed it before, but it lives outside and is not domesticated. Mild leukocytosis WBC 11.15, lactate and procalcitonin normal. Otherwise electrolytes unremarkable.L Forearm x-ray indicates no osteomyelitis but soft tissue swelling; old ulnar styloid fracture noted. No retained foreign matter (tooth) noted. RIG x4 (R thigh x2, L thigh x1 and left forearm), rabies vaccine, and Tdap administered with initiation of Unasyn IV. 1L NS be administered. Patient will be admitted for further evaluation and management of forearm cellulitis and lymphangitis Obtain MRSA screen, blood cultures low yield but were obtained in ED, limb elevation, cover for staph with Unasyn and Ortho consult given location of bite/increased swelling around joint. Cellulitis of left wrist: Lymphangitis/Tenosynovitis s/p Cat bite Left forearm MRI:No acute bony abnormality is seen involving the forearm. There is evidence of cellulitis along the volar aspect of the distal forearm/wrist. No fluid collection is seen to suggest abscess. Findings suggest a nonspecific tenosynovitis of the extensor tendons of the wrist joint. 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 01/20 blood cultures no growth to date Negative MRSA screen Received Tdap, RIG plus rabies vaccine in ED On IV Unasyn (day 7) Clinically much better-swelling of the left hand is improving. And denies any pain Will continue to have wound care dressing as per recommendation Will have PICC line placement today and possible discharge on Wednesday Likely discharge tomorrow on IV antibiotic as planned 01/24 wrist MRI - Severe synovitis in the carpal tunnel. Circumferential subcutaneous edema. Severe osteoarthritis with the carpus, as described. Moderate dorsal capsule synovitis. Moderate synovitis along the volar radiocarpal eccentric ligaments. Tear of the scapholunate ligament. No widening of the scapholunate interval. Degeneration of the central disc of the triangular fiber cartilage. Old fracture at the base of the ulnar styloid, with ununited fracture fragment measuring 7 x 8 mm. POD#4 Left carpal tunnel release, left flexor tenosynovectomy, left extensor tenosynovectomy, left arthrotomy and drainage radiocarpal joint, left arthrotomy and drainage distal radial ulnar joint by Dr. Carreon Operative cultures NGTD Appreciate ID input and recommendation Recommended to have Unasyn 3 g intravenously every 6 hourly for a total of 3 weeks Antibiotic will be continued until 02/16/2024 Will need to have CBC and CMP weekly as long as an antibiotic Dressing as per Ortho Rabies PEP received RIG plus vaccine on 01/20 which would be day 0 Will require additional rabies vaccination, received rabies vaccine on 01/25 Will need two additional doses, next on 01/27 and February 03 Scheduled dose for 01/27 H/O PSVT HTN Continue metoprolol, terazosin, and lisinopril Follows with [facility] cardiology Slightly tachycardic today, will give 1 L IVF, continue to monitor; EKG shows NSR HLD continue simvastatin BPH continue terazosin GERD continue PPI Bowel Regimen On Miralax and senna S DVT PROPHYLAXIS SQ Lovenox Admission and Anticipated Discharge Date Admission Date: January 21, 2024 Subjective 01/28/2024 The patient was seen and examined in medical He is a status post I&D for left dorsal tenosynovitis of the wrist He has been feeling a lot better following the procedure Has had ID evaluation Denies any other significant symptoms 01/29/2024 The patient was seen and examined in medical floor He has been feeling a lot better He will have PICC line today and possible discharge on Wednesday on intravenous Unasyn 01/30/2024 The patient was seen and examined in the medical floor He has been feeling a lot better Left hand is free of pain at rest and the swelling is much improved Denies any other symptoms Review of Systems Review of Systems: All systems reviewed and are unremarkable except as noted below Physical Exam Physical Exam: Lying in bed without any acute distress Constitutional: well developed and well nourished; not ill appearing Eyes: PERRL, conjunctivae normal, anicteric sclerae ENMT: external ear and nose normal, oropharynx normal Neck: trachea midline, no thyromegaly Respiratory: no respiratory distress Auscultation: lungs clear to auscultation bilaterally Cardiovascular: Rate/Rhythm: regular rate and regular rhythm; not tachycardic Heart Sounds: normal S1 and normal S2; no murmur Extremities: no edema Gastrointestinal (Abdomen): Inspection/Auscultation: normal bowel sounds; abdomen not distended Percussion/Palpation: abdomen soft; abdomen nontender Musculoskeletal: Left forearm is bandaged. Swelling of the left hand has improved a lot without any loss of sensation and/or function Neurologic: normal touch/pain/proprioception and moves all extremities; no focal motor deficits Psychiatric: A+Ox3, euthymic affect Lymphatic: no cervical or axillary lymphadenopathy Results & Data Results & Data Vital Signs (Past 12 Hours) Vital Signs Temp Pulse Resp BP Pulse Ox O2 Del Method 01/30/24 08:42 125/70 01/30/24 07:28 175/106 H 01/30/24 07:28 36.8 C 63 16 170/101 H 98 Room Air Medications Administered Current Inpatient Medications Acetaminophen (Acetaminophen 500 Mg Tab) 1,000 mg PO Q8H [facility] Stop: 02/24/24 13:59 Last Admin: 01/30/24 05:08 Dose: 1,000 mg Al Hydrox/Mg Hydrox/Simethicone (Aluminum/Magnesium Susp 30 Ml Udc) 15 ml PO Q4H PRN PRN Reason: Dyspepsia Stop: 02/20/24 11:42 Aspirin (Aspirin 81 Mg Ectab) 81 mg PO DAILY [facility] Stop: 02/21/24 08:59 Last Admin: 01/30/24 08:04 Dose: 81 mg Bisacodyl (Bisacodyl 10 Mg Supp) 10 mg MD DAILY PRN PRN Reason: Constipation Stop: 02/25/24 17:53 Diphenhydramine HCl (Diphenhydramine Capsule 25 Mg Cap) 25 mg PO Q8H PRN PRN Reason: Itching Stop: 02/25/24 17:53 Docusate Sodium (Docusate Sodium 100 Mg Cap) 100 mg PO BID [facility] Stop: 02/25/24 20:59 Last Admin: 01/30/24 08:05 Dose: 100 mg Enoxaparin Sodium (Enoxaparin Inj 40 Mg/0.4 Ml Syr) 40 mg SQ [facility] Stop: 02/21/24 08:59 Last Admin: 01/30/24 08:06 Dose: 40 mg Finasteride (Finasteride 5 Mg Tab) 5 mg PO [facility]; Protocol Stop: 02/21/24 08:59 Last Admin: 01/30/24 08:05 Dose: 5 mg Hydralazine HCl (Hydralazine 10 Mg Tab) 10 mg PO Q8H PRN PRN Reason: Hypertension SBP>180orDBP>100 Stop: 02/23/24 18:44 Ampicillin Sodium/Sulbactam Sodium 3,000 mg/ Sodium Chloride 100 mls @ 200 mls/hr IV Q6H [facility] Stop: 03/11/24 08:59 Last Infusion: 01/30/24 08:38 Dose: Infused Ibuprofen (Ibuprofen 600 Mg Tab) 600 mg PO Q8H [facility] Stop: 02/24/24 11:59 Last Admin: 01/30/24 11:08 Dose: 600 mg Lisinopril (Lisinopril 10 Mg Tab) 30 mg PO [facility] Stop: 02/21/24 08:59 Last Admin: 01/30/24 08:05 Dose: 30 mg Magnesium Chloride (Magnesium Chloride W/Calcium 64mg Delayed Rel Tab) 64 mg PO BID [facility] Stop: 02/22/24 09:14 Last Admin: 01/30/24 08:04 Dose: 64 mg Magnesium Hydroxide (Magnesium Hydroxide Susp 30 Ml Udc) 30 ml PO Q12H PRN PRN Reason: Constipation Stop: 02/20/24 11:42 Last Admin: 01/24/24 17:30 Dose: 30 ml Magnesium Hydroxide (Magnesium Hydroxide Susp 30 Ml Udc) 30 ml PO Q6H PRN PRN Reason: Constipation Stop: 02/25/24 17:53 Metoclopramide HCl (Metoclopramide Hcl Inj 5 Mg/Ml 2 Ml Vial) 10 mg IV Q6H PRN PRN Reason: Nausea And Vomiting Stop: 02/25/24 17:53 Metoprolol Succinate (Metoprolol Succ 25mg Ext Rel Tab) 25 mg PO [facility] Stop: 02/24/24 08:59 Last Admin: 01/30/24 08:04 Dose: 25 mg Morphine Sulfate (Morphine Sulfate 4 Mg/Ml 1 Ml Carp\Vial) 4 mg IV Q4H PRN PRN Reason: Severe Pain (Scale 7, 8, 9,10) Stop: 02/08/24 05:46 Last Admin: 01/25/24 23:36 Dose: 4 mg Multivitamins (Multivitamin Tab) [facility] Stop: 02/26/24 08:59 Last Admin: 01/30/24 08:05 Dose: 1 tab Naloxone HCl (Naloxone Hcl 0.4 Mg/1 Ml Vial/Carp) 0.1 mg IV Q5M PRN PRN Reason: Oversedation/Resp Depression Stop: 02/25/24 17:53 Ondansetron HCl (Ondansetron Inj 2 Mg/Ml 2 Ml Vial) 4 mg IV Q6H PRN PRN Reason: Nausea Stop: 02/20/24 11:42 Ondansetron HCl (Ondansetron Inj 2 Mg/Ml 2 Ml Vial) 4 mg IV Q6H PRN PRN Reason: Nausea And Vomiting Stop: 02/25/24 17:53 Oxybutynin Chloride (Oxybutynin Chloride 5 Mg Tab) 10 mg PO BID [facility] Stop: 02/20/24 20:59 Last Admin: 01/30/24 08:04 Dose: 10 mg Oxycodone HCl (Oxycodone Hcl Ir 5 Mg Tab (Immediate Release)) 5 mg PO Q4H PRN PRN Reason: Moderate Pain (Scale 4, 5, 6) Stop: 02/08/24 05:37 Last Admin: 01/26/24 18:38 Dose: 5 mg Pantoprazole Sodium (Pantoprazole 40 Mg Tab) 40 mg PO [facility]; Protocol Stop: 02/21/24 08:59 Last Admin: 01/30/24 08:05 Dose: 40 mg Polyethylene Glycol (Polyethylene (Miralax) 17 Gm Pack) 17 gm PO DAILY [facility] Stop: 02/24/24 10:29 Last Admin: 01/30/24 08:06 Dose: 17 gm Senna/Docusate Sodium (Docusate Sodium/Senna 50/8.6mg Tab) 1 tab PO BID [facility] Stop: 02/24/24 10:29 Last Admin: 01/30/24 08:05 Dose: 1 tab Sennosides (Senna 8.6 Mg Tab) 17.2 mg PO HS [facility] Stop: 02/25/24 20:59 Last Admin: 01/29/24 22:19 Dose: 17.2 mg Simvastatin (Simvastatin 40 Mg Tab) 40 mg PO [facility] Stop: 02/20/24 20:59 Last Admin: 01/29/24 22:20 Dose: 40 mg Terazosin HCl (Terazosin Hcl 5 Mg Cap) 5 mg PO [facility] Stop: 02/20/24 20:59 Last Admin: 01/29/24 22:18 Dose: 5 mg (2) Cat bite Encounter type: initial encounter Qualified Code(s): W55.01XA - Bitten by cat, initial encounter
[2024-01-31 07:24] LABS: Basophils # (auto) 0.06 K/uL (0.00-0.20); Eosinophils % (auto) 3.3 %; Hematocrit (blood only) 31.6 % (42.0-52.0); Hemoglobin 10.6 g/dl (14.0-18.0); Immature Granulocytes # (auto) 0.04 K/uL (0.01-0.20); Immature Granulocytes % (auto) 0.7 %; Lymphocytes # (auto) 1.64 K/uL (1.20-3.40); Lymphocytes % (auto) 26.8 %; Mean Corpuscular Hemoglobin 30.3 pg (25.0-34.0); Mean Corpuscular Hgb Conc 33.5 g/dL (32.0-36.0); Mean Corpuscular Volume 90.3 fL (80.0-100.0); Mean Platelet Volume 10.2 fL (9.4-12.4); Monocytes % (auto) 11.4 %; Neutrophils # (auto) 3.48 K/uL (1.40-6.50); Neutrophils % (auto) 56.8 %; Platelet Count 356 K/uL (130-400); RDW Coefficient of Variation 14.6 % (11.5-14.5); RDW Standard Deviation 48.1 fL (36.4-46.3); White Blood Count 6.12 K/ul (4.8-10.8)
[2024-01-31 07:49] LABS: Albumin Globulin Ratio 1.2 (0.9-2); Albumin Level 3.4 gm/dl (3.4-5.0); BUN Creatinine Ratio 23.1 (10-20); Bilirubin,Total 0.3 mg/dl (0.2-1.0); Calcium 8.7 mg/dl (8.6-10.3); Creatinine Clr Calc Pharmacy 57.3 ml/min; Est GFR (African American) 92.6 ml/min; Est GFR (Non-African American) 79.9 ml/min; Globulin 2.8 gm/dl (2.5-4.0); Total Protein 6.2 gm/dl (6.0-8.3)
[2024-01-31] MEDS: ALUMINUM/MAGNESIUM SUSP 30 ML UDC PO PRN (14:20)
[2024-01-31] MEDS: hydrALAZINE 10 MG TAB PO PRN (16:20)
--- NOTE | 2024-01-31 16:28 | Hospitalist Progress Note ---
Date of Service January 31, 2024 Assessment & Plan (1) Cellulitis of forearm, left: (2) Cat bite: (3) History of paroxysmal supraventricular tachycardia: (4) HTN (hypertension): (5) BPH (benign prostatic hyperplasia): (6) Hyperlipidemia: (7) GERD (gastroesophageal reflux disease): Plan Mr. Graham is a 78 y/o M was at his house feeding stray cats and one bit his left forearm. His left forearm had a small superficial bite rebecca on the ventral aspect of his hand. He had erythema and swelling at the site with lymphangitis on the left dorsal forearm. He denies previous bites. He has seen this cat before and has fed it before, but it lives outside and is not domesticated. Mild leukocytosis WBC 11.15, lactate and procalcitonin normal. Otherwise electrolytes unremarkable.L Forearm x-ray indicates no osteomyelitis but soft tissue swelling; old ulnar styloid fracture noted. No retained foreign matter (tooth) noted. RIG x4 (R thigh x2, L thigh x1 and left forearm), rabies vaccine, and Tdap administered with initiation of Unasyn IV. 1L NS be administered. Patient will be admitted for further evaluation and management of forearm cellulitis and lymphangitis Obtain MRSA screen, blood cultures low yield but were obtained in ED, limb elevation, cover for staph with Unasyn and Ortho consult given location of bite/increased swelling around joint. Cellulitis of left wrist: Lymphangitis/Tenosynovitis s/p Cat bite Left forearm MRI:No acute bony abnormality is seen involving the forearm. There is evidence of cellulitis along the volar aspect of the distal forearm/wrist. No fluid collection is seen to suggest abscess. Findings suggest a nonspecific tenosynovitis of the extensor tendons of the wrist joint. 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 01/20 blood cultures no growth to date Negative MRSA screen Received Tdap, RIG plus rabies vaccine in ED On IV Unasyn (day 7) Clinically much better-swelling of the left hand is improving. And denies any pain Will continue to have wound care dressing as per recommendation Will have PICC line placement today and possible discharge on Wednesday Likely discharge tomorrow on IV antibiotic as planned Will continue with the dressing as per Ortho Left upper extremity has been much improved with swelling of the fingers and hands and also pain 01/24 wrist MRI - Severe synovitis in the carpal tunnel. Circumferential subcutaneous edema. Severe osteoarthritis with the carpus, as described. Moderate dorsal capsule synovitis. Moderate synovitis along the volar radiocarpal eccentric ligaments. Tear of the scapholunate ligament. No widening of the scapholunate interval. Degeneration of the central disc of the triangular fiber cartilage. Old fracture at the base of the ulnar styloid, with ununited fracture fragment measuring 7 x 8 mm. POD#5 Left carpal tunnel release, left flexor tenosynovectomy, left extensor tenosynovectomy, left arthrotomy and drainage radiocarpal joint, left arthrotomy and drainage distal radial ulnar joint by Dr. Carreon Operative cultures NGTD Appreciate ID input and recommendation Recommended to have Unasyn 3 g intravenously every 6 hourly for a total of 3 weeks Antibiotic will be continued until 02/16/2024 Will need to have CBC and CMP weekly as long as an antibiotic Dressing as per Ortho Will have intravenous antibiotic with Unasyn 6 g IV continuously over 12 hours and every 12 hourly until the course is finished on 02/16/2024 Will have CBC and CMP weekly Rabies PEP received RIG plus vaccine on 01/20 which would be day 0 Will require additional rabies vaccination, received rabies vaccine on 01/25 Will need two additional doses, next on 01/27 and February 03 Scheduled dose for 01/27 H/O PSVT HTN Continue metoprolol, terazosin, and lisinopril Follows with [facility] cardiology Slightly tachycardic today, will give 1 L IVF, continue to monitor; EKG shows NSR HLD continue simvastatin BPH continue terazosin GERD continue PPI Bowel Regimen On Miralax and senna S DVT PROPHYLAXIS SQ Lovenox Admission and Anticipated Discharge Date Admission Date: January 21, 2024 Subjective 01/28/2024 The patient was seen and examined in medical He is a status post I&D for left dorsal tenosynovitis of the wrist He has been feeling a lot better following the procedure Has had ID evaluation Denies any other significant symptoms 01/29/2024 The patient was seen and examined in medical floor He has been feeling a lot better He will have PICC line today and possible discharge on Wednesday on intravenous Unasyn 01/30/2024 The patient was seen and examined in the medical floor He has been feeling a lot better Left hand is free of pain at rest and the swelling is much improved Denies any other symptoms 01/31/2024 The patient was seen and examined in medical floor He has been feeling a lot better Awaiting approval from home health nurse to continue antibiotic as an outpatient Will be discharged tomorrow Review of Systems Review of Systems: All systems reviewed and are unremarkable except as noted below Physical Exam Physical Exam: Lying in bed without any acute distress Constitutional: well developed and well nourished; not ill appearing Eyes: PERRL, conjunctivae normal, anicteric sclerae ENMT: external ear and nose normal, oropharynx normal Neck: trachea midline, no thyromegaly Respiratory: no respiratory distress Auscultation: lungs clear to auscultation bilaterally Cardiovascular: Rate/Rhythm: regular rate and regular rhythm; not tachycardic Heart Sounds: normal S1 and normal S2; no murmur Extremities: no edema Gastrointestinal (Abdomen): Inspection/Auscultation: normal bowel sounds; abdomen not distended Percussion/Palpation: abdomen soft; abdomen nontender Neurologic: normal touch/pain/proprioception and moves all extremities; no focal motor deficits Psychiatric: A+Ox3, euthymic affect Lymphatic: no cervical or axillary lymphadenopathy Results & Data Results & Data Vital Signs (Past 12 Hours) Vital Signs Temp Pulse Resp BP Pulse Ox O2 Del Method 01/31/24 15:15 36.5 C 74 16 169/110 H 97 Room Air 01/31/24 07:37 36.4 C L 72 16 147/93 H 98 Room Air Laboratory Results Short CBC 01/31/24 Range/Units 06:37 WBC 6.12 (4.8-10.8) K/ul Hgb 10.6 L (14.0-18.0) g/dl Hct 31.6 L (42.0-52.0) % Plt Count 356 (130-400) K/uL BMP 01/31/24 06:37 Sodium 140 Potassium 4.0 Chloride 107 Carbon Dioxide 28 BUN 21 Creatinine 0.91 Glucose 95 Calcium 8.7 Liver Function 01/31/24 Range/Units 06:37 Total Bilirubin 0.3 (0.2-1.0) mg/dl AST 18 (13-39) U/L ALT 16 (7-52) U/L Alkaline Phosphatase 42 (34-104) U/L Albumin 3.4 (3.4-5.0) gm/dl Medications Administered Current Inpatient Medications Acetaminophen (Acetaminophen 500 Mg Tab) 1,000 mg PO Q8H [facility] Stop: 02/24/24 13:59 Last Admin: 01/31/24 13:01 Dose: 1,000 mg Al Hydrox/Mg Hydrox/Simethicone (Aluminum/Magnesium Susp 30 Ml Udc) 15 ml PO Q4H PRN PRN Reason: Dyspepsia Stop: 02/20/24 11:42 Last Admin: 01/31/24 14:20 Dose: 15 ml Aspirin (Aspirin 81 Mg Ectab) 81 mg PO DAILY [facility] Stop: 02/21/24 08:59 Last Admin: 01/31/24 07:28 Dose: 81 mg Bisacodyl (Bisacodyl 10 Mg Supp) 10 mg CO DAILY PRN PRN Reason: Constipation Stop: 02/25/24 17:53 Diphenhydramine HCl (Diphenhydramine Capsule 25 Mg Cap) 25 mg PO Q8H PRN PRN Reason: Itching Stop: 02/25/24 17:53 Docusate Sodium (Docusate Sodium 100 Mg Cap) 100 mg PO BID [facility] Stop: 02/25/24 20:59 Last Admin: 01/31/24 07:28 Dose: 100 mg Enoxaparin Sodium (Enoxaparin Inj 40 Mg/0.4 Ml Syr) 40 mg SQ QAM [facility] Stop: 02/21/24 08:59 Last Admin: 01/31/24 07:25 Dose: 40 mg Finasteride (Finasteride 5 Mg Tab) 5 mg PO QAM [facility]; Protocol Stop: 02/21/24 08:59 Last Admin: 01/31/24 07:28 Dose: 5 mg Heparin Sodium (Beef Lung) (Heparin 10 Unit/Ml 5 Ml Flush) 5 ml FLUSH PRN PRN PRN Reason: Flush Stop: 02/29/24 12:59 Last Admin: 01/31/24 14:20 Dose: 5 ml Hydralazine HCl (Hydralazine 10 Mg Tab) 10 mg PO Q8H PRN PRN Reason: Hypertension SBP>180orDBP>100 Stop: 02/23/24 18:44 Last Admin: 01/31/24 16:20 Dose: 10 mg Ampicillin Sodium/Sulbactam Sodium 3,000 mg/ Sodium Chloride 100 mls @ 200 mls/hr IV Q6H [facility] Stop: 03/11/24 08:59 Last Infusion: 01/31/24 14:49 Dose: Infused Ibuprofen (Ibuprofen 600 Mg Tab) 600 mg PO Q8H [facility] Stop: 02/24/24 11:59 Last Admin: 01/31/24 11:03 Dose: 600 mg [facility]inopril ([facility]op[facility] 10 Mg Tab) [facility] Stop: 02/21/24 08:59 Last Admin: 01/31/24 07:29 Dose: 30 mg Magnesium Chloride (Magnesium Chloride W/Calcium 64mg Delayed Rel Tab) 64 mg PO BID [facility] Stop: 02/22/24 09:14 Last Admin: 01/31/24 07:27 Dose: 64 mg Magnesium Hydroxide (Magnesium Hydroxide Susp 30 Ml Udc) 30 ml PO Q12H PRN PRN Reason: Constipation Stop: 02/20/24 11:42 Last Admin: 01/24/24 17:30 Dose: 30 ml Magnesium Hydroxide (Magnesium Hydroxide Susp 30 Ml Udc) 30 ml PO Q6H PRN PRN Reason: Constipation Stop: 02/25/24 17:53 Metoclopramide HCl (Metoclopramide Hcl Inj 5 Mg/Ml 2 Ml Vial) 10 mg IV Q6H PRN PRN Reason: Nausea And Vomiting Stop: 02/25/24 17:53 Metoprolol Succinate (Metoprolol Succ 25mg Ext Rel Tab) 25 mg PO [facility] Stop: 02/24/24 08:59 Last Admin: 01/31/24 07:27 Dose: 25 mg Morphine Sulfate (Morphine Sulfate 4 Mg/Ml 1 Ml Carp\Vial) 4 mg IV Q4H PRN PRN Reason: Severe Pain (Scale 7, 8, 9,10) Stop: 02/08/24 05:46 Last Admin: 01/25/24 23:36 Dose: 4 mg Multivitamins (Multivitamin Tab) 1 tab PO [facility] Stop: 02/26/24 08:59 Last Admin: 01/31/24 07:28 Dose: 1 tab Naloxone HCl (Naloxone Hcl 0.4 Mg/1 Ml Vial/Carp) 0.1 mg IV Q5M PRN PRN Reason: Oversedation/Resp Depression Stop: 02/25/24 17:53 Ondansetron HCl (Ondansetron Inj 2 Mg/Ml 2 Ml Vial) 4 mg IV Q6H PRN PRN Reason: Nausea Stop: 02/20/24 11:42 Ondansetron HCl (Ondansetron Inj 2 Mg/Ml 2 Ml Vial) 4 mg IV Q6H PRN PRN Reason: Nausea And Vomiting Stop: 02/25/24 17:53 Oxybutynin Chloride (Oxybutynin Chloride 5 Mg Tab) 10 mg PO BID [facility] Stop: 02/20/24 20:59 Last Admin: 01/31/24 07:29 Dose: 10 mg Oxycodone HCl (Oxycodone Hcl Ir 5 Mg Tab (Immediate Release)) 5 mg PO Q4H PRN PRN Reason: Moderate Pain (Scale 4, 5, 6) Stop: 02/08/24 05:37 Last Admin: 01/26/24 18:38 Dose: 5 mg Pantoprazole Sodium (Pantoprazole 40 Mg Tab) 40 mg PO [facility]; Protocol Stop: 02/21/24 08:59 Last Admin: 01/31/24 07:29 Dose: 40 mg Polyethylene Glycol (Polyethylene (Miralax) 17 Gm Pack) 17 gm PO DAILY [facility] Stop: 02/24/24 10:29 Last Admin: 01/31/24 07:27 Dose: 17 gm Senna/Docusate Sodium (Docusate Sodium/Senna 50/8.6mg Tab) 1 tab PO BID [facility] Stop: 02/24/24 10:29 Last Admin: 01/31/24 07:29 Dose: 1 tab Sennosides (Senna 8.6 Mg Tab) 17.2 mg PO [facility] Stop: 02/25/24 20:59 Last Admin: 01/30/24 20:26 Dose: Not Given Simvastatin (Simvastatin 40 Mg Tab) 40 mg PO [facility] Stop: 02/20/24 20:59 Last Admin: 01/30/24 20:26 Dose: 40 mg Terazosin HCl (Terazosin Hcl 5 Mg Cap) 5 mg PO [facility] Stop: 02/20/24 20:59 Last Admin: 01/30/24 20:27 Dose: 5 mg (2) Cat bite Encounter type: initial encounter Qualified Code(s): W55.01XA - Bitten by cat, initial encounter
--- NOTE | 2024-02-01 11:09 | Discharge Summary ---
Discharge Summary Date of Service February 01, 2024 Notes For Next Care Provider Patient is receiving IV Unasyn 3000 mg every 6 hours through 02/16/2024. He does not need infectious disease follow-up. Infectious disease recommends weekly CMP and CBC until end date. Patient will need to complete his last dose of his rabies vaccine series. Last dose due on 02/04/24. Medication Changes From Visit none Admission HPI Per Admitting Provider Mr. Graham is a 78 year old male that was at his house feeding stray cats and one bit his left forearm yesterday between [id number]. His left forearm has a small superficial bite rebecca on the ventral aspect of his hand. He has erythema and swelling at the site with lymphangitis on the left dorsal forearm. He denies previous bites. He has seen this cat before and has fed it before, but it lives outside and is not domesticated. The cat did not appear confused or aggressive and was not foaming at the mouth. Additional PMH includes: HTN, SVT, BPH, HLD and chronic rhinitis. Follows with [facility]. Mild leukocytosis WBC 11.15, lactate and procalcitonin normal. Otherwise electrolytes unremarkable. LFTs negative. Forearm x-ray indicates no osteomyelitis but soft tissue swelling; old ulnar styloid fracture noted. No retained foreign matter (tooth) noted. Reportedly smokes marijuana, occasional cigars, no alcohol use. In the ED Tdap, RIG x4 (R thigh x2, L thigh x1 and left forearm), rabies vaccine, and TDAPP administered with initiation of Unasyn IV. 1L NS be administered. Patient will be admitted for further evaluation and management of forearm cellulitis and lymphangitis Obtain MRSA screen, blood cultures low yield but were obtained in ED, limb elevation, cover for staph with Unasyn. Anticipate length of stay 1 to 2 days pending progression. Principal Dx & Hospital Course #1 = Principal Diagnosis (1) Cellulitis of forearm, left: (2) Cat bite: (3) History of paroxysmal supraventricular tachycardia: (4) HTN (hypertension): (5) BPH (benign prostatic hyperplasia): (6) Hyperlipidemia: (7) GERD (gastroesophageal reflux disease): Plan Mr. Graham is a 78 y/o M who was at his house feeding stray cats and one bit his left forearm. His left forearm had a small superficial bite rebecca on the ventral aspect of his hand. He had erythema and swelling at the site with lymphangitis on the left dorsal forearm. He denies previous bites. He has seen this cat before and has fed it before, but it lives outside and is not domesticated. On admission he had mild leukocytosis WBC 11.15, lactate and procalcitonin normal. His electrolytes were unremarkable. L Forearm x-ray indicates no osteomyelitis but soft tissue swelling; old ulnar styloid fracture noted. No retained foreign matter (tooth) noted. RIG x4 (R thigh x2, L thigh x1 and left forearm), rabies vaccine, and Tdap administered with initiation of Unasyn IV. He was seen and evaluated by orthopedics who recommended conservative management upon initial assessment. Unfortunately despite several days of therapy he continued to have increased swelling and pain to his left wrist along with decreased sensation of digits. He was reevaluated by orthopedics and on 01/26/24 due to repeat wrist MRI revealing severe synovitis in the carpal tunnel. He underwent a left carpal tunnel release, left flexor tenosynovectomy, left extensor tenosynovectomy, left arthrotomy and drainage of radiocarpal joint, left arthrotomy and drainage of distal radial ulnar joint by Dr. Carreon. His operative cultures were negative. After surgical procedure he has had significant improvement with continued IV antibiotics. He was seen and evaluated by infectious disease who recommends continuing antibiotic therapy for additional 3 weeks through 02/16/2024. Orthopedics recommends digit range of motion and he will need to follow-up with a certified hand therapist for further therapy. It is recommended he follow-up with orthopedics upon discharge. He did receive the rabies vaccine series. He had initial dose on admission on 01/20 and initial doses on 01/25 and 01/27. He will require his last vaccine dose on 02/04/2024. On discharge he was not requiring any narcotic pain medication. His pain has been controlled with Tylenol and ibuprofen. He is hemodynamically stable and offers no acute complaints. He is tolerating diet and moving his bowels. He will have close follow-up with primary care provider and orthopedics upon discharge. Discharge Exam Gen: WD/WN, M, sitting up in bed, NAD, A&O x3 HEENT: Normocephalic, atraumatic, conjunctivae moist, sclerae anicteric, mucous membranes moist. Lung: Clear to Auscultation bilaterally, no wheezes/rales/rhonchi Heart: Regular rate, regular rhythm, Abdomen: Soft, NT, ND +BS x 4 Extremities: L wrist/volar forearm with edema but significant improved, dressing in place, CDI Skin: Warm, no rash, negative turgor. Updated Medication List Medication Instructions Recorded Confirmed Type dutasteride 0.5 mg capsule 0.5 mg PO QAM 07/20/19 01/21/24 History lisinopril 30 mg tablet 30 mg PO QAM 07/20/19 01/21/24 History omeprazole 40 mg capsule,delayed 40 mg PO QAM 07/20/19 01/21/24 History release oxybutynin chloride 5 mg tablet 5 mg PO BID 07/20/19 01/21/24 History simvastatin 40 mg tablet 40 mg PO HS 07/20/19 01/21/24 History terazosin 5 mg capsule 5 mg PO HS 07/20/19 01/21/24 History aspirin 81 mg tablet,delayed 81 mg PO DAILY 05/14/22 01/21/24 History release metoprolol succinate 25 mg 25 mg PO QAM 05/14/22 01/21/24 History tablet,extended release 24 hr Hospital Stay Data Consultations 01/21/24 11:39 ED Decision to Admit Stat 01/21/24 13:01 Consult Orthopedic Surgery Routine 01/25/24 09:05 Consult Orthopedic Surgery Routine 01/27/24 12:21 Consult Infectious Diseases Routine Procedures Performed Operation Date: 01/26/24 10:30 Actual Procedures p Flexor tenosynovectomy, extensor tenosynovectomy, carpal tunnel, arthrotomy and drainage of wrist and distal radioulnar joint(Left) - Logan Carreon MD Diagnostic Imagining Performed Forearm X-Ray 01/21/24 09:59 XR forearm LT 2V CLINICAL HISTORY: cat bite dorsal distal forearm r/o fb. COMPARISON: None FINDINGS: No fractures within the left radius or ulna are identified. No bony erosions are present. There is an old nonunited fracture of the ulnar styloid. Left forearm soft tissue swelling is present. There are no radiopaque foreign bodies. No soft tissue gas is identified. 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 IMPRESSION: 1. Left forearm soft tissue swelling. No radiopaque foreign bodies. 2. No evidence for osteomyelitis within the left radius or ulna. ACT 112: Negative or not required by law. Electronically signed by: Antolin Mcneal M.D. 01/21/2024 11:11 AM Forearm MRI 01/22/24 08:31 MRI OF THE LEFT FOREARM COMBO CLINICAL HISTORY: Cat bite injury. Pain, swelling, and erythema. COMPARISON STUDY: Radiographs of the left forearm dated 01/21/2024. TECHNIQUE: MRI of the left forearm was performed utilizing various T1 and T2- weighted sequences in the axial, sagittal, and coronal planes. Contrast-enhanced sequences are acquired following the IV administration of 7 cc of Gadavist. The examination is compromised by motion artifact. FINDINGS: There is no MRI evidence of acute fracture. There is a chronic avulsion injury of the ulnar styloid. There is no marrow change to suggest osteomyelitis. Degenerative change is noted in the elbow and wrist joints. An elbow joint effusion is observed. There is a benign-appearing lesion of the distal ulna, which is T1 hypointense, T2 hyperintense, and shows postcontrast enhancement. This shows a narrow zone of transition. There is no expansile or soft tissue component, and the appearance favors a benign lesion such as an enchondroma. There is subcutaneous soft tissue edema and trace fluid is seen on the volar aspect of the distal forearm/wrist with nonspecific patchy enhancement. The appearance favors cellulitis. No organized fluid collection is seen to indicate abscess. The regional musculature is normal as imaged. There is mild fluid and enhancement around the extensor tendons at the wrist joint. Tenosynovitis is not excluded. There is tendinopathy of the biceps tendon, which appears intact. The brachioradialis appears maintained. IMPRESSION: 1. No acute bony abnormality is seen involving the forearm. 2. There is evidence of cellulitis along the volar aspect of the distal forearm/wrist. No fluid collection is seen to suggest abscess. 3. Findings suggest a nonspecific tenosynovitis of the extensor tendons of the wrist joint. Correlate clinically. 4. There is an indeterminant benign-appearing lesion of the distal ulna as detailed above, possibly representing an enchondroma. Dictated: 01/22/2024 12:05 PM Transcribed: 01/22/2024 12:32 PM Yared [id number] Electronically signed by: Jett Toro M.D. 01/22/2024 2:[address] 01/25/24 05:39 CT forearm LT w con CT DOSE: 255.08 mGy.cm CLINICAL HISTORY: worsening swelling . Left forearm swelling. Cat bite. TECHNIQUE: Multiaxial CT images of the left forearm were performed following the intravenous administration of contrast and reformatted in the sagittal and coronal plane. A dose lowering technique was utilized adhering to the principles of ALARA. COMPARISON STUDY: Left forearm MRI 01/22/2024. FINDINGS: No fracture or dislocation within the left forearm. No destructive changes to suggest an osteomyelitis. Subcutaneous edema throughout the left forearm. No loculated fluid collections to suggest an abscess. No soft tissue masses or lymphadenopathy. Evaluation of the left hand/wrist is better appreciated on the same day left hand CT. Suggestion of a small effusion within the left wrist and left elbow, unchanged. There is an old ulnar styloid fracture, unchanged. IMPRESSION: 1. Subcutaneous edema throughout the left forearm which could represent a cellulitis. This is similar to the prior study. 2. Small effusions within the elbow and wrist, unchanged. 3. No loculated fluid collections to suggest an abscess. 4. No evidence for osteomyelitis. ACT 112: Negative or not required by law. Electronically signed by: Reginaldo Paige M.D. 01/25/2024 7:[address] 01/25/24 05:[address] WITH CONTRAST CLINICAL HISTORY: Worsening swelling. COMPARISON STUDY: Left forearm radiographs January 21, 2024. Left forearm MRI January 22, 2024. TECHNIQUE: Axial images of the left hand and wrist were obtained following i ntravenous injection of 89 cc of Optiray 320 IV. Sagittal and coronal reconstructions were viewed. Automated exposure control was utilized for the study. A dose lowering technique was utilized adhering to the principles of ALARA. FINDINGS: Please note that the left forearm CT will be reported separately. Well-corticated ossicle along the ulnar styloid indicates old injury. There is no acute fracture within the left hand. No bony erosions within the left hand are identified. There is no soft tissue gas within the left forearm. Distal left forearm and wrist soft tissue swelling is present. No rim-enhancing fluid collection is present within the left hand. A small wrist joint effusion is present mild synovial thickening. No radiopaque foreign bodies are identified. 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 IMPRESSION: 1. Left forearm and wrist soft tissue swelling consistent with cellulitis. No rim-enhancing fluid collection to suggest abscess. No soft tissue gas. No radiopaque foreign bodies. 2. Small left wrist joint effusion with mild synovial thickening and enhancement. This joint effusion is nonspecific. ACT 112: Negative or not required by law. Electronically signed by: Antolin Mcneal M.D. 01/25/2024 7:30 AM Wrist MRI 01/25/24 18:25 Exam(s): MRI LEFT WRIST W/WO Contrast IV Amt: 7.2cc gadavist EXAM: MR Left Upper Extremity Without and With Intravenous Contrast, Wrist CLINICAL HISTORY: Reason for exam: r/o infection in wrist and carpal tunnel. TECHNIQUE: Multiplanar magnetic resonance images of the left wrist without and with intravenous contrast. CONTRAST: Patient received 7.2cc gadavist of IV contrast COMPARISON: No relevant prior studies available. FINDINGS: Tear of the scapholunate ligament. No widening of the scapholunate interval. Degeneration of the central disc of the triangular fiber cartilage. Old fracture at the base of the ulnar styloid, with ununited fracture fragment measuring 7 x 8 mm. No acute fracture or subluxation. Severe osteoarthritis with the carpus, consisting of grade 4 chondral degeneration and subchondral cystic changes/sclerosis. [id number] articulation of the first CMC with osteophytic spurring of the trapezium and base of the first metacarpal. Moderate dorsal capsule synovitis. Moderate synovitis along the volar radiocarpal eccentric ligaments. Severe synovitis in the carpal tunnel. Normal size and signal intensity median nerve. Circumferential subcutaneous edema. Normal carpal alignment. IMPRESSION: Severe synovitis in the carpal tunnel. Circumferential subcutaneous edema. Severe osteoarthritis with the carpus, as described. Moderate dorsal capsule synovitis. Moderate synovitis along the volar radiocarpal eccentric ligaments. Tear of the scapholunate ligament. No widening of the scapholunate interval. Degeneration of the central disc of the triangular fiber cartilage. Old fracture at the base of the ulnar styloid, with ununited fracture fragment measuring 7 x 8 mm. Electronically signed by: William Norman MD 01/26/24 01:11 AM Pending Results Patient Have Any Pending Studies at Discharge: No Discharge Instructions Given to Patient (Per Discharging Provider) MEDICATION CHANGES: IV Unasyn 3000 mg every 6 hours for 3 weeks. This will continue until 02/16/2024. Continue all medications as prescribed. It is recommended that you purchase a probiotic [id number] and take it daily while on antibiotic therapy. This can be purchased at a local pharmacy. It is recommended that you control your pain with [id number] Tylenol 500 mg every 6 hours as needed. SUMMARY OF TEST RESULTS: You were admitted to hospital secondary to a cat bite. You developed significant cellulitis as well as inflammation and infection in your left carpal tunnel and joints of your Left hand. You were seen and evaluated by orthopedics and had to undergo surgery by Dr. Carreon. This was successful. Your operative cultures were negative. You were seen and evaluated by infectious disease who recommends additional 3 weeks of antibiotics through 02/16/2024. PENDING TEST RESULTS: none RECOMMENDATIONS FOR FOLLOW-UP: Please complete antibiotics in their entirety. It is recommended that you elevate your left upper extremity and continue range of motion of the fingers. You have been undergoing a series of rabies vaccination due to cat bite. You are due for your last vaccine on 02/04/2024. Please confirm this with your primary care provider as they will have to schedule this with a nurse at [facility]. Please follow-up with your primary care provider on February 02 as scheduled. You will need to follow-up with orthopedics physician assistant director of residence life, Atif Alex, in 2 weeks of discharge. Please call their office to schedule an appointment. Orthopedics recommends that you get established with a hand therapist. Please discuss this with them to be arranged to improve range of motion of left hand. Your PICC Line will need to be discontinued at completion of antibiotics. Please follow PICC line care instructions as provided by nursing at discharge. OTHER INSTRUCTIONS: Seek medical attention if you have: * temperature above 101 * chest pain or trouble breathing * abdominal pain, nausea, vomiting * diarrhea, dark stools or bloody stools * any unanswered questions or concerns Call 911 if symptoms are severe. Please take good care of yourself. It has been a pleasure taking care of you. Please take care of yourself. If you have any questions regarding your recent hospitalization please contact [facility] and request Bryson Borjas @ [phone]. Total Time Total Time Spent Total Time Spent (In Minutes): 45 minutes Supervising Physician Co-Signing Physician Notes Attending addendum The patient was seen and examined in medical floor Denies any significant symptoms Left upper extremity and hand swelling has improved a lot denies any pain Remains hemodynamically stable All of his medications reviewed prior to discharge Agree with assessment and plan as outlined above by Ashley Domínguez [facility] Attestation I certify that this patient is under my care and that I, or a physicians assistant director of residence life working with me, had a face to-face encounter that meets the home health [id number] encounter requirements with this patient. The encounter with the patient was in whole, or in part, for the following medical condition, which is the primary reason for home health care (list medical condition): I certify that, based on my findings, the following services are medically necessary home health services: My clinical findings support the need for the above services because: Further, I certify that my clinical findings support that this patient is homebound (i.e. absences from home require considerable and taxing effort and are for medical reasons or shinto services or infrequently or of short duration when for other reasons) because: Certification for Home Health Services: Based on the above findings, I certify that this patient is confined to the home and needs intermittent snf care, physical therapy and/or speech therapy or continues to need occupational therapy. The patient is under my care, and I have initiated the establishment of the plan of care. This patient will be followed by a physician who will periodically review the plan of care.
== END 2024-02-01 11:53 | disposition home health service (06) | DRG 501 ==
LOC: ED 09:24 → EDINP 11:43 → SUATTDRO 11:43 → 2S 21:41 → 3N 01-24 16:49